=== PATIENT | male | born 1970 | race Caucasian/White ===

== ENCOUNTER 2020-05-11 20:20 | Emergency (ER) | payer OTHER, SELFPAY ==
[2020-05-11 20:30] VITALS: BMI 28.7
--- NOTE | 2020-05-11 20:33 | ECG_ITS ---
Test Reason : COCAINE USE Blood Pressure : / mmHG Vent. Rate : 088 BPM Atrial Rate : 088 BPM P-R Int : 180 ms QRS Dur : 114 ms QT Int : 374 ms P-R-T Axes : 061 038 045 degrees QTc Int : 452 ms Normal sinus rhythm Nonspecific ST and T wave abnormality Borderline ECG When compared with ECG of 17-JAN-2020 23:03, No significant change was found Referred By: Jackie Barcenas Electronically Signed By:NADIYA VICTOR
[2020-05-11 20:41] VITALS: BP 169/100; PULSE 90; RESP 16; TEMP 36.6; O2SAT 100
--- NOTE | 2020-05-11 20:54 | ED.GENADULT ---
HPI - General Adult General Chief complaint: ETOH/Substance Use Stated complaint: FEELS LIKE HEART RACING S/P COCAINE USE Time Seen by Provider: 05/11/20 20:34 Source: patient and EMS Mode of arrival: EMS Limitations: no limitations History of Present Illness HPI narrative: Patient comes to the emergency room, concerned that he used cocaine today. Patient states he used a very small amount. Patient states that he has not used in a long time, declined to state how long. 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 Patient walked into a police station after using a small amount of cocaine, he was brought in by police department. Patient is calm, cooperative, has no chest pain or shortness of breath, no complaints, MD complaint: Substance abuse Related Data Allergies Allergy/AdvReac Type Severity Reaction Status Date / Time No Known Allergies Allergy Unverified 01/10/20 19:19 [No Known Allergies*] Review of Systems Review of Systems: Constitutional : No Weight loss, No Fever, No Chills, No Night Sweats, No Fatigue, No Malaise ENT/Mouth : No Hearing loss, No Ear Pain, No Nasal Congestion, No Sinus Pain, No Hoarseness, No sore throat, No Rhinorrhea, No Swallowing Difficulty Eyes: No Eye Pain, No Swelling, No Redness, No Foreign Body, No Discharge, No Vision Changes Cardiovascular : No Chest Pain, No SOB, No Dyspnea on Exertion, No Orthopnea, No Edema, No Palpitations Respiratory : No Cough, No Sputum, No Wheezing, No Smoke Exposure, No Dyspnea Gastrointestinal : No Nausea, No Vomiting, No Diarrhea, No Constipation, No abdominal Pain, No Hematochezia, No Melena Genitourinary : no irregular bleeding, No Dysuria, No Urinary Frequency, No Hematuria, No Urinary Incontinence, No Urgency, No Flank Pain, No Urinary Flow Changes, No Hesitancy Musculoskeletal : No joint pain, No Myalgias, No Joint Swelling Skin : No Skin Lesions, No rash Neuro : No Weakness, No Numbness, No Paresthesias, No Loss of Consciousness, No Dizziness, No Headache Psych : No Anxiety/Panic, No Depression, No SI/HI/AH/VH, No Social Issues, Heme/Lymph: No Bruising, No Bleeding,No Lymphadenopathy Endocrine : No Polyuria, No Polydipsia, No Temperature Intolerance PMFSH Past Medical History Medical History (Updated 05/11/20 @ 20:57 by Jackie Barcenas MD) Hypochondriasis Substance abuse Social History Social History Advance Directives: No Advance Directives Information Provided: Yes Physical Exam Vital Signs: Vital Signs: Last Vital Signs Temp 97.9 F 05/11/20 20:41 Pulse 90 05/11/20 20:41 Resp 16 05/11/20 20:41 BP 169/100 H 05/11/20 20:41 Pulse Ox 100 05/11/20 20:41 Body Mass Index 28.7 Appearance: Alert. Oriented X3. No acute distress. Eyes: Pupils equal, round and reactive to light. ENT: Pharynx normal. Neck: Normal inspection. Neck supple. No lymph nodes noted. No crepitus CVS: Normal heart rate and rhythm. Pulses normal. Normal S1 and S2 Respiratory: No respiratory distress. Breath sounds normal. No Wheezing. No rales Abdomen: Soft and nontender. No rigidity. No distention. good BS x4 Skin: Skin warm and dry. Normal skin color. Normal skin turgor. Extremities: No lower extremity edema. No lower extremity edema. No Lacerations. No Rash Neuro: Oriented X 3. No motor deficit. No sensory deficit. Moving all extermities. No slurred speech. Course Course Course Narrative: Patient's physical exam is normal, patient has no symptoms. Medical Decision Making ECG Data Attestation: I personally reviewed and interpreted this ECG as follows: (Heart rate 88, QTC 452, nonspecific ST and T-wave abnormalities in eats V4 V5 V6, no ST segment depressions or elevations.) Discharge Plan Discharge Clinical Impression: Substance abuse Patient Disposition: Home, Self-Care Instructions: Polysubstance Abuse (ED) Additional Instructions: Please follow-up with your primary care physician tomorrow. If you have any worsening or new symptoms, please return to the emergency room or call 911
== END 2020-05-11 21:03 | disposition home or self-care (01) ==
PROVIDERS: Emergency Provider Emergency Medicine
DX: F14.19 Cocaine abuse with unspecified cocaine-induced disorder (principal); Z71.51 Drug abuse counseling and surveillance of drug abuser
CPT/HCPCS: 93005; 99283

== ENCOUNTER 2020-05-22 19:58 | Emergency (ER) | payer OTHER, SELFPAY ==
[2020-05-22 20:11] VITALS: BP 183/97; PULSE 85; RESP 18; TEMP 37.3; O2SAT 98
[2020-05-22 20:38] LABS: COVID-19 Test Positive (Negative); IDNOW Serial# 9DD0AD1C
[2020-05-22 20:40] VITALS: BP 167/98; PULSE 80; RESP 18
[2020-05-22 21:22] VITALS: BP 172/99; PULSE 76; RESP 18
[2020-05-22 21:31] VITALS: BP 162/93; PULSE 80; RESP 14; TEMP 36.8; O2SAT 97; BMI 31.9
[2020-05-22 21:50] VITALS: BP 103/58; PULSE 75; RESP 16; TEMP 36.8; O2SAT 99
--- NOTE | 2020-05-22 22:18 | ECG_ITS ---
Test Reason : HIGH BP Blood Pressure : / mmHG Vent. Rate : 071 BPM Atrial Rate : 071 BPM P-R Int : 148 ms QRS Dur : 098 ms QT Int : 396 ms P-R-T Axes : 051 028 037 degrees QTc Int : 430 ms Normal sinus rhythm Normal ECG When compared with ECG of 11-MAY-2020 20:34, No significant change was found Referred By: Luciana Aragon Electronically Signed By:Andrew Morton
--- NOTE | 2020-05-22 22:18 | ED.ANXIETY ---
HPI - Anxiety General Chief Complaint: Anxiety Stated Complaint: High blood pressure/+Covid Time Seen by Provider: 05/22/20 21:51 Source: patient Mode of arrival: ambulatory History of Present Illness HPI narrative: This is a 49-year-old male with history of alcohol dependence (drinks 8-10 beers every other day) that he stopped on 05/11. He was then diagnosed with COVID-19 on 05/14, he now presents with complaints of intermittent elevated blood pressure but does endorse that he did not take his entire prescribed medication this morning and denies any associated headache/dizziness/chest pain/shortness of breath/palpitations. Otherwise, he denies any fevers or chills. Related Data Allergies Allergy/AdvReac Type Severity Reaction Status Date / Time No Known Allergies Allergy Unverified 01/10/20 19:19 [No Known Allergies*] Review of Systems Review of Systems: Pertinent positives and negatives as stated in HPI and 10 point review of systems is otherwise negative. [facility] Past Medical History Source: nursing notes reviewed Medical History (Updated 05/22/20 @ 23:53 by Luciana Aragon MD) Alcohol dependence Hypochondriasis Substance abuse Social History Social History Advance Directives: No Advance Directives Information Provided: No Physical Exam Vital Signs: Vital Signs: Last Vital Signs Temp 98.3 F 05/22/20 21:50 Pulse 79 05/22/20 22:41 Resp 15 05/22/20 22:41 BP 166/92 H 05/22/20 22:41 Pulse Ox 96 05/22/20 22:41 Body Mass Index 31.9 VITAL SIGNS: Reviewed. GENERAL: Well developed, well nourished, anxious demeanor. HEAD: Normocephalic/atraumatic, EYES: PERRLA, EOMI EARS: Ext canals without abnormality, TMs non-bulging and non-erythematous NOSE: Nares patent bilateral OROPHARYNX: no oral lesions noted, posterior pharynx clear NECK: Supple, no adenopathy LUNGS: Normal breath sounds. No adventitious sounds or accessory muscle use. SpO2<98> CARDIOVASCULAR: Regular rate and rhythm without noted murmurs, no JVD or lower extremity edema. ABDOMEN: Soft, non-tender, non-distended with bowel sounds. SKIN: Inspection of the skin reveals no rashes NEUROLOGIC: Alert and oriented x 4. Course Course Course Narrative: This is a 49-year-old male with history and clinical presentation consistent with anxiety and increased salt intake. Otherwise, there are no concerning signs of end-organ damage secondary to patient's elevated blood pressure however will proceed with basic labs and EKG. This plan was discussed with the patient at bedside. Review of all investigations is negative for any acute findings to better explain patient's elevated blood pressure other than those outlined in the obtained history. Patient is noted to be COVID-19 positive and was informed of this. Is discharged in stable condition with no evidence of hypoxia or tachypnea. MDM - Anxiety Lab Data Result diagrams: 05/22/20 22:41 05/22/20 22:41 Labs: Lab Results 05/22/20 05/22/20 05/22/20 Range/Units 20:14 22:41 22:41 WBC 5.2 (4.8-10.8) X10*3/uL RBC 4.70 (4.60-5.80) X10*6/uL Hgb 14.0 (14.0-18.0) g/dl Hct 39.2 L (42-52) % MCV 83.4 (80-98) fL MCH 29.8 (27.0-33.0) pg MCHC 35.7 (31.0-36.0) g/dl RDW 11.8 (11.0-16.0) % Plt Count 162 (160-400) X10*3/uL MPV 10.1 (9.4-12.4) fL Immature Gran % (Auto) 0.2 (0.0-0.4) % Neut % (Auto) 68.6 (45-73) % Lymph % (Auto) 25.4 (20-40) % [place] % (Auto) 5.4 (2-11) % Eos % (Auto) 0.4 (0-4) % Baso % (Auto) 0.0 (0-2) % Lymph # (Auto) 1.3 (1.2-4.9) X10*3/uL [place] # (Auto) 0.3 (0.1-1.2) X10*3/uL Eos # (Auto) 0.0 (0.0-0.4) X10*3/uL Baso # (Auto) 0.0 (0.0-0.2) X10*3/uL Abs Immat Gran (auto) 0.01 (0.00-0.03) X10*3/uL Absolute Neuts (auto) 3.6 (2.0-8.3) X10*3/uL Absolute Nucleated RBC 0.000 (0.0-0.012) X10*3/uL Nucleated RBC % (auto) 0.0 (0.0-0.2) /100WBC Sodium 139 (135-145) mmol/L Potassium 4.3 (3.3-5.1) mmol/l Chloride 107 (96-108) mmol/L Carbon Dioxide 22 (22-29) mmol/L Anion Gap 14 (12-20) BUN 10 (9-16) mg/dL Creatinine 0.76 (0.5-1.4) mg/dL Estim Creat Clear Calc 126.1 Estimated GFR > 60 Random Glucose 106 (60-115) mg/dL Calcium 8.3 L (8.4-10.2) mg/dL Total Bilirubin 0.9 (0.0-1.0) mg/dL AST 59 H (5-37) U/L ALT 104 H (0-40) U/L Alkaline Phosphatase 90 (39-117) U/L Total Protein 7.0 (6.5-8.0) g/dL Albumin 4.6 (3.5-5.0) g/dL COVID-19 ([place]) Positive A (Negative) COVID-19 Clin Com See Note ECG Data Attestation: I personally reviewed and interpreted this ECG as follows: Prior ECG tracings: not available for review Interpretation: Normal sinus rhythm, HR-71, no evidence of acute ischemia, ME/QRS/QTC are within normal limits. Discharge Plan Discharge Clinical Impression: Elevated blood pressure reading, COVID-19 Patient Disposition: Home, Self-Care Instructions: DASH Eating Plan (ED), Hypertension (ED), COVID-19 (Coronavirus Disease 2019) (ED) Additional Instructions: 1. Please take your home medications as prescribed. 2. Please follow-up with your primary care provider by calling the office tomorrow morning and discussing further blood pressure management. 3. Your COVID-19 positive and must remain self quarantined as per the [facility] guidelines. Please do not hesitate to return emergency department if you have any acute worsening of her symptoms. Referrals: Physician,Unknown [Primary Care Provider] - 2 days
[2020-05-22 22:41] VITALS: BP 166/92; PULSE 79; RESP 15; O2SAT 96
[2020-05-22 22:47] LABS: Eosinophils Percent Auto 0.4 % (0-4); Hematocrit 39.2 % (42-52); Imm Gran Abs Auto 0.01 X10*3/uL (0.00-0.03); Imm Gran Pct Auto 0.2 % (0.0-0.4); Lymphocytes Absolute Auto 1.3 X10*3/uL (1.2-4.9); Lymphocytes Percent Auto 25.4 % (20-40); Mean Corpuscular HGB Conc 35.7 g/dl (31.0-36.0); Mean Corpuscular Hemoglobin 29.8 pg (27.0-33.0); Mean Corpuscular Volume 83.4 fL (80-98); Mean Platelet Volume 10.1 fL (9.4-12.4); Monocytes Absolute Auto 0.3 X10*3/uL (0.1-1.2); Monocytes Percent Auto 5.4 % (2-11); Neutrophils Absolute Auto 3.6 X10*3/uL (2.0-8.3); Neutrophils Percent Auto 68.6 % (45-73); Platelet Count 162 X10*3/uL (160-400); Red Cell Distribution Width 11.8 % (11.0-16.0); White Blood Count 5.2 X10*3/uL (4.8-10.8)
[2020-05-22 22:48] LABS: MANUAL DIFF FLAG NO
[2020-05-22 23:22] LABS: Alanine Aminotransferase 104 U/L (0-40); Albumin Level 4.6 g/dL (3.5-5.0); Alkaline Phosphatase 90 U/L (39-117); Anion Gap 14 (12-20); Aspartate Amino Transferase 59 U/L (5-37); Bilirubin Total 0.9 mg/dL (0.0-1.0); Blood Urea Nitrogen 10 mg/dL (9-16); Calcium 8.3 mg/dL (8.4-10.2); Carbon Dioxide 22 mmol/L (22-29); Chloride 107 mmol/L (96-108); Creatinine Clr Calc Pharmacy 126.1; Estimated Glomerular Filt Rate > 60; Glucose Random 106 mg/dL (60-115); Potassium 4.3 mmol/l (3.3-5.1); Sodium 139 mmol/L (135-145)
[2020-05-23 00:12] VITALS: BP 140/81; PULSE 73; RESP 11; O2SAT 97
--- NOTE | 2020-05-23 00:15 | PC.NURSE ---
PT FEELING BETTER, RELIEVED THAT BP IS LOWER. PT ASKED IF HE HAD ANY SALTY FOOD PT REPLIES OH LEVI BURNETT AT [facility].
== END 2020-05-23 00:34 | disposition home or self-care (01) ==
PROVIDERS: Emergency Provider Student in an Organized Health Care Education/Training Program
DX: U07.1 COVID-19 (principal); R03.0 Elevated blood-pressure reading, without diagnosis of hypertension; F10.20 Alcohol dependence, uncomplicated; F19.10 Other psychoactive substance abuse, uncomplicated
CPT/HCPCS: 36415; 80053; 85025; 87635; 93005; 99283; 99284

== ENCOUNTER 2021-03-03 12:07 | Outpatient (REF) | payer OTHER, SELFPAY | END 2021-03-03 12:08 | disposition home or self-care (01) | LOC: HO.HMGCLDS 12:07 | PROVIDERS: PCP Internal Medicine; Visit Provider Internal Medicine | DX: Z20.822 Contact with and (suspected) exposure to COVID-19 (principal) | CPT/HCPCS: C9803; U0003; U0005 ==

== ENCOUNTER 2022-06-12 19:34 | Emergency (ER) | payer OTHER, SELFPAY ==
--- NOTE | ~2022-06-12 | XR_ITS ---
EXAMINATION: XR CHEST CLINICAL INFORMATION: Chest pain COMPARISON: None TECHNIQUE: 2 views of the chest were obtained. FINDINGS: No significant abnormality is noted involving the heart, lungs, mediastinum, bony thorax or soft tissues. XR/XR chest 2V IMPRESSION: Unremarkable examination.
--- NOTE | 2022-06-12 19:37 | ED.ARRPALP ---
HPI - Arrhythmia/Palpitations General Chief Complaint: Arrhythmia/Palpitations <Evi Buenrostro NP - Last Filed: 06/12/22 19:44> Stated Complaint: elevated bp..heart beat feels different <Evi Buenrostro NP - Last Filed: 06/12/22 19:44> Time Seen by Provider: 06/12/22 21:14 <Evi Buenrostro NP - Last Filed: 06/12/22 19:44> Source: patient <Mack Rushing MD - Last Filed: 06/12/22 21:38> Mode of arrival: ambulatory <Mack Rushing MD - Last Filed: 06/12/22 21:38> Limitations: no limitations <Mack Rushing MD - Last Filed: 06/12/22 21:38> History of Present Illness HPI narrative: Patient alcohol with history of anxiety and hypertension prior to arrival patient felt extra beat with a pause similar to that in the past got panicked check his blood pressure was elevated to 180/100 history of same in the past <Mack Rushing MD - Last Filed: 06/12/22 21:38> Related Data Allergies/Adverse Reactions: Allergies Allergy/AdvReac Type Severity Reaction Status Date / Time No Known Allergies Allergy Verified 06/12/22 19:43 [No Known Allergies*] <Evi Buenrostro NP - Last Filed: 06/12/22 19:44> Review of Systems Review of Systems: Yes all other systems are reviewed and are negative <Mack Rushing MD - Last Filed: 06/12/22 21:38> [facility] Past Medical History Medical History: Medical History Alcohol dependence Hypochondriasis Substance abuse <Evi Buenrostro NP - Last Filed: 06/12/22 19:44> Social History Social History: Social History Advance Directives: No Advance Directives Information Provided: No <Evi Buenrostro NP - Last Filed: 06/12/22 19:44> Physical Exam Vital Signs: Vital Signs: Last Vital Signs Temp 99.0 F 06/12/22 19:38 Pulse 99 06/12/22 19:38 Resp 20 06/12/22 19:38 BP 188/101 H 06/12/22 19:38 Pulse Ox 97 06/12/22 19:38 O2 Del Method 06/12/22 19:38 BMI result Body Mass Index 34.1 <Evi Buenrostro NP - Last Filed: 06/12/22 19:44> Vital Signs: Last Vital Signs Temp 99.0 F 06/12/22 19:38 Pulse 99 06/12/22 19:38 Resp 20 06/12/22 19:38 BP 188/101 H 06/12/22 19:38 Pulse Ox 97 06/12/22 19:38 O2 Del Method 06/12/22 19:38 BMI result Body Mass Index 34.1 <Mack Rushing MD - Last Filed: 06/12/22 21:38> Appearance: Alert. Oriented X3. No acute distress. Anxious Eyes: No pallor/ icterus ENT: Pharynx normal. Oral Mucosa moist Neck: Normal inspection. Neck supple. CVS: Normal heart rate and rhythm. Pulses normal. Respiratory: No respiratory distress. Equal air entry bilateral, no wheezing/rales/rhonchi Abdomen: Soft and nontender. Bowel sounds are present, no mass palpable, no CVA tenderness Skin: Skin warm and dry. Normal skin color. Normal skin turgor. Extremities: No lower extremity edema. No calf tenderness Neuro: Oriented X 3. No motor deficit. <Mack Rushing MD - Last Filed: 06/12/22 21:38> Course Course Course Narrative: This is a rapid medical exam. Deferred additional HPI, ROS, PE to primary provider. 51 yo male with past medical history of HTN on lisinopril, insomnia, alcohol use disorder (drinks every other day 8-10beers at a sitting-last drink yesterday) here with complaints of palpitations states I feel like its irregular and pausing /high blood pressure felt today. Took xanax 0.25 mg to see if this would help [employer]. No chest pain, shortness of breath, dizziness, headache. Patient has felt like he has alcohol withdrawals before and unsure if this feels similar. Will obtain labs, EKG, CXR, viral testing. VSS <Evi Buenrostro NP - Last Filed: 06/12/22 19:44> Medical Decision Making Lab Data MDM Lab Attestation statement: I reviewed the patient's lab results. <Mack Rushing MD - Last Filed: 06/12/22 21:38> Result Diagrams: 06/12/22 20:06 06/12/22 20:06 <Evi Buenrostro NP - Last Filed: 06/12/22 19:44> Labs: Lab Results 06/12/22 06/12/22 06/12/22 Range/Units 20:06 20:06 20:06 WBC 5.0 (4.8-10.8) X10*3/uL RBC 4.22 L (4.60-5.80) X10*6/uL Hgb 12.7 L (14.0-18.0) g/dl Hct 35.4 L (42.0-52.0) % MCV 83.9 (80.0-98.0) fL MCH 30.1 (27.0-33.0) pg MCHC 35.9 (31.0-36.0) g/dl RDW 12.0 (11.0-16.0) % Plt Count 181 (160-400) X10*3/uL MPV 9.7 (9.4-12.4) fL Immature Gran % (Auto) 0.2 (0.0-0.4) % Neut % (Auto) 53.7 (45-73) % Lymph % (Auto) 36.3 (20-40) % [place] % (Auto) 9.0 (2-11) % Eos % (Auto) 0.6 (0-4) % Baso % (Auto) 0.2 (0-2) % Lymph # (Auto) 1.8 (1.2-4.9) X10*3/uL [place] # (Auto) 0.5 (0.1-1.2) X10*3/uL Eos # (Auto) 0.0 (0.0-0.4) X10*3/uL Baso # (Auto) 0.0 (0.0-0.2) X10*3/uL Abs Immat Gran (auto) 0.01 (0.00-0.03) X10*3/uL Absolute Neuts (auto) 2.7 (2.0-8.3) x10*3/uL Absolute Nucleated RBC 0.000 (0.0-0.012) X10*3/uL Nucleated RBC % (auto) 0.0 (0.0-0.2) /100WBC PT 11.7 (10.0-13.1) SEC INR 1.0 (0.9-1.1) Sodium 140 (135-145) mmol/L Potassium 3.9 (3.3-5.1) mmol/L Chloride 108 (96-108) mmol/L Carbon Dioxide 22 (22-29) mmol/L Anion Gap 14 (12-20) BUN 18 H (9-16) mg/dL Creatinine 0.98 (0.5-1.4) mg/dL Estim Creat Clear Calc 98.7 Estimated GFR > 60 Random Glucose 143 H (60-115) mg/dL Calcium 8.8 D (8.4-10.2) mg/dL Magnesium 1.8 (1.6-2.6) mg/dL Total Bilirubin 0.7 (0.0-1.0) mg/dL Direct Bilirubin 0.2 (0.0-0.5) mg/dL AST 32 (5-37) U/L ALT 45 H (0-40) U/L Alkaline Phosphatase 70 (39-117) U/L Troponin I High Sens (<3.5-35.0) ng/L Total Protein 6.6 (6.5-8.0) g/dL Albumin 4.3 (3.5-5.0) g/dL COVID-19 ([place]) (Negative) COVID-19 Clin Com 06/12/22 06/12/22 Range/Units 20:06 20:06 WBC (4.8-10.8) X10*3/uL RBC (4.60-5.80) X10*6/uL Hgb (14.0-18.0) g/dl Hct (42.0-52.0) % MCV (80.0-98.0) fL MCH (27.0-33.0) pg MCHC (31.0-36.0) g/dl RDW (11.0-16.0) % Plt Count (160-400) X10*3/uL MPV (9.4-12.4) fL Immature Gran % (Auto) (0.0-0.4) % Neut % (Auto) (45-73) % Lymph % (Auto) (20-40) % [place] % (Auto) (2-11) % Eos % (Auto) (0-4) % Baso % (Auto) (0-2) % Lymph # (Auto) (1.2-4.9) X10*3/uL [place] # (Auto) (0.1-1.2) X10*3/uL Eos # (Auto) (0.0-0.4) X10*3/uL Baso # (Auto) (0.0-0.2) X10*3/uL Abs Immat Gran (auto) (0.00-0.03) X10*3/uL Absolute Neuts (auto) (2.0-8.3) x10*3/uL Absolute Nucleated RBC (0.0-0.012) X10*3/uL Nucleated RBC % (auto) (0.0-0.2) /100WBC PT (10.0-13.1) SEC INR (0.9-1.1) Sodium (135-145) mmol/L Potassium (3.3-5.1) mmol/L Chloride (96-108) mmol/L Carbon Dioxide (22-29) mmol/L Anion Gap (12-20) BUN (9-16) mg/dL Creatinine (0.5-1.4) mg/dL Estim Creat Clear Calc Estimated GFR Random Glucose (60-115) mg/dL Calcium (8.4-10.2) mg/dL Magnesium (1.6-2.6) mg/dL Total Bilirubin (0.0-1.0) mg/dL Direct Bilirubin (0.0-0.5) mg/dL AST (5-37) U/L ALT (0-40) U/L Alkaline Phosphatase (39-117) U/L Troponin I High Sens 6.3 (<3.5-35.0) ng/L Total Protein (6.5-8.0) g/dL Albumin (3.5-5.0) g/dL COVID-19 ([place]) Negative (Negative) COVID-19 Clin Com See Note <Evi Chitra, [employer] OPERATOR - Last Filed: 06/12/22 19:44> Lab Results 06/12/22 06/12/22 06/12/22 Range/Units 20:06 20:06 20:06 WBC 5.0 (4.8-10.8) X10*3/uL RBC 4.22 L (4.60-5.80) X10*6/uL Hgb 12.7 L (14.0-18.0) g/dl Hct 35.4 L (42.0-52.0) % MCV 83.9 (80.0-98.0) fL MCH 30.1 (27.0-33.0) pg MCHC 35.9 (31.0-36.0) g/dl RDW 12.0 (11.0-16.0) % Plt Count 181 (160-400) X10*3/uL MPV 9.7 (9.4-12.4) fL Immature Gran % (Auto) 0.2 (0.0-0.4) % Neut % (Auto) 53.7 (45-73) % Lymph % (Auto) 36.3 (20-40) % [place] % (Auto) 9.0 (2-11) % Eos % (Auto) 0.6 (0-4) % Baso % (Auto) 0.2 (0-2) % Lymph # (Auto) 1.8 (1.2-4.9) X10*3/uL [place] # (Auto) 0.5 (0.1-1.2) X10*3/uL Eos # (Auto) 0.0 (0.0-0.4) X10*3/uL Baso # (Auto) 0.0 (0.0-0.2) X10*3/uL Abs Immat Gran (auto) 0.01 (0.00-0.03) X10*3/uL Absolute Neuts (auto) 2.7 (2.0-8.3) x10*3/uL Absolute Nucleated RBC 0.000 (0.0-0.012) X10*3/uL Nucleated RBC % (auto) 0.0 (0.0-0.2) /100WBC PT 11.7 (10.0-13.1) SEC INR 1.0 (0.9-1.1) Sodium 140 (135-145) mmol/L Potassium 3.9 (3.3-5.1) mmol/L Chloride 108 (96-108) mmol/L Carbon Dioxide 22 (22-29) mmol/L Anion Gap 14 (12-20) BUN 18 H (9-16) mg/dL Creatinine 0.98 (0.5-1.4) mg/dL Estim Creat Clear Calc 98.7 Estimated GFR > 60 Random Glucose 143 H (60-115) mg/dL Calcium 8.8 D (8.4-10.2) mg/dL Magnesium 1.8 (1.6-2.6) mg/dL Total Bilirubin 0.7 (0.0-1.0) mg/dL Direct Bilirubin 0.2 (0.0-0.5) mg/dL AST 32 (5-37) U/L ALT 45 H (0-40) U/L Alkaline Phosphatase 70 (39-117) U/L Troponin I High Sens (<3.5-35.0) ng/L Total Protein 6.6 (6.5-8.0) g/dL Albumin 4.3 (3.5-5.0) g/dL COVID-19 ([place]) (Negative) COVID-19 Clin Com 06/12/22 06/12/22 Range/Units 20:06 20:06 WBC (4.8-10.8) X10*3/uL RBC (4.60-5.80) X10*6/uL Hgb (14.0-18.0) g/dl Hct (42.0-52.0) % MCV (80.0-98.0) fL MCH (27.0-33.0) pg MCHC (31.0-36.0) g/dl RDW (11.0-16.0) % Plt Count (160-400) X10*3/uL MPV (9.4-12.4) fL Immature Gran % (Auto) (0.0-0.4) % Neut % (Auto) (45-73) % Lymph % (Auto) (20-40) % [place] % (Auto) (2-11) % Eos % (Auto) (0-4) % Baso % (Auto) (0-2) % Lymph # (Auto) (1.2-4.9) X10*3/uL [place] # (Auto) (0.1-1.2) X10*3/uL Eos # (Auto) (0.0-0.4) X10*3/uL Baso # (Auto) (0.0-0.2) X10*3/uL Abs Immat Gran (auto) (0.00-0.03) X10*3/uL Absolute Neuts (auto) (2.0-8.3) x10*3/uL Absolute Nucleated RBC (0.0-0.012) X10*3/uL Nucleated RBC % (auto) (0.0-0.2) /100WBC PT (10.0-13.1) SEC INR (0.9-1.1) Sodium (135-145) mmol/L Potassium (3.3-5.1) mmol/L Chloride (96-108) mmol/L Carbon Dioxide (22-29) mmol/L Anion Gap (12-20) BUN (9-16) mg/dL Creatinine (0.5-1.4) mg/dL Estim Creat Clear Calc Estimated GFR Random Glucose (60-115) mg/dL Calcium (8.4-10.2) mg/dL Magnesium (1.6-2.6) mg/dL Total Bilirubin (0.0-1.0) mg/dL Direct Bilirubin (0.0-0.5) mg/dL AST (5-37) U/L ALT (0-40) U/L Alkaline Phosphatase (39-117) U/L Troponin I High Sens 6.3 (<3.5-35.0) ng/L Total Protein (6.5-8.0) g/dL Albumin (3.5-5.0) g/dL COVID-19 ([place]) Negative (Negative) COVID-19 Clin Com See Note <Mack Rushing MD - Last Filed: 06/12/22 21:38> Independent Interpretation I performed an independent interpretation of an: EKG <Mack Rushing MD - Last Filed: 06/12/22 21:38> Interpretation: Normal sinus rhythm with heart rate 91 beats with PACs nonspecific ST T wave changes no acute ischemic <Mack Rushing MD - Last Filed: 06/12/22 21:38> Discharge Plan Discharge Clinical Impression: Anxiety, Ventricular premature beats <Evi Buenrostro NP - Last Filed: 06/12/22 19:44> Patient Disposition: Home, Self-Care <Evi Buenrostro NP - Last Filed: 06/12/22 19:44> Instructions: Panic Disorder (ED), Premature Ventricular Contractions (ED) <Evi Buenrostro NP - Last Filed: 06/12/22 19:44> Additional Instructions: Stop drinking alcohol Relaxed and taking medications Follow with PCP if you have recurrence of palpitation with passing out episode <Evi Buenrostro NP - Last Filed: 06/12/22 19:44>
[2022-06-12 19:38] VITALS: BP 188/101; PULSE 99; RESP 20; TEMP 37.2; O2SAT 97; BMI 34.1
--- NOTE | 2022-06-12 19:42 | ECG_ITS ---
Test Reason : tacardya Blood Pressure : / mmHG Vent. Rate : 091 BPM Atrial Rate : 091 BPM P-R Int : 140 ms QRS Dur : 102 ms QT Int : 356 ms P-R-T Axes : 056 037 061 degrees QTc Int : 437 ms Sinus rhythm with Premature atrial complexes Nonspecific ST abnormality Abnormal ECG When compared with ECG of 22-MAY-2020 23:05, Premature atrial complexes are now Present Referred By: Evi Buenrostro Electronically Signed By:Andrew Morton
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
--- OUTSIDE RECORDS SUMMARY | 2022-06-12 20:02 | XMS_ITS | Continuity of Care Document ---
:1970 Author Organization [facility] Care Team Providers Name Role Phone [facility] Unavailable Unavailable Problems Combined list of problems from Department of Defense and Veterans Affairs facilities. It does not include entries that were removed or entered in error. Problem Status Onset Problem Date of Comments Source Date Type Resolution Acute low back pain Active Condition [facility] [place] [facility] Alcohol dependence Active Condition [facility] C Alcohol dependence Active Condition Jul 252018 Entered By: BRADEN CLARK Comment: reports decreased use September 07, 2018 Entered By: BRADEN CLARK Comment: reviewewd Jun 25, 2019 Entered By: BRADEN CLARK Comment: reviewed Jun 02, 2020 Entered By: BRADEN CLARK Comment: reviewed Jul 21, 2021 Entered By: BRADEN CLARK Comment: Reviewed Alcoholic hepatitis Active Condition Aug 22, [place] [facility] (SNOMED CT 2012 Entered WSTRN [id number]) By: BRADEN STEWART Comment: reports decreased alcohol Dec 08, 2017 Entered By: BRADEN CLARK Comment: reviewed Alcoholic liver Active Condition [facility] disease [facility] Benign essential Active Condition [facility] hypertension (SNOMED CT 2836423) Benzodiazepine Active Condition [facility] [facility] dependence [facility] Bipolar affective Active Condition Dec 08 [place] disorder, current 2018 Entered episode depression By: (SNOMED CT BRADEN CLARK [id number]) BERNICE Campo Comment: reviewed September 07, 2018 Entered By: BRADEN CLARK Comment: reviewed Jun 25, 2019 Entered By: BRADEN CLARK Comment: reviewed Jun 02, 2020 Entered By: BRADEN CLARK Comment: reviewed Jul 21, 2021 Entered By: BRADEN CLARK Comment: Reviewed Bipolar II disorder Active Condition [facility] C Bursitis Active Condition [facility] [place] [facility] Chronic Active Condition [facility] post-traumatic NAINA S [facility] stress disorder Chronic Active Condition Aug 13, [place] [facility] post-traumatic 2010 Entered WS TRN stress disorder By: MARKIE PUGA (SNOMED CT BRADEN CLARK [facility] [id number]) BERNICE Campo Comment: reviewed Dec 08, 2017 Entered By: BRADEN CLARK Comment: reviewed September 07, 2018 Entered By: BRADEN CLARK Comment: reviewed Jun 25, 2019 Entered By: BRADEN CLARK Comment: reviewed Jun 02, 2020 Entered By: BRADEN CLARK Comment: reviewed Jul 21, 2021 Entered By: BRADEN CLARK Comment: reviewed Cocaine abuse Active Condition [facility] C Cocaine user Active Condition Jul 21, [facility] 2021 Entered By: BRADEN CLARK Comment: Reports abstinence diphenhydramine Active Condition [facility] abuse [facility] C Hepatitis C antibody Active Condition Nov 01 , [place] test positive 2013 Entered By: MILO NATH Comment: viral RNA not detected 10/2013 HTN - Hypertension Active Condition E D[facility] N[facility] (SCT 94471780) NAINA S [facility] Hyperlipidemia Active Condition [facility] 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 BERNICE Campo Comment: reviewed Jul 21, 2021 Entered By: BRADEN CLARK Comment: Reports abstinence Liver function tests Active Condition [facility] Mixed Hyperlipidemia Active Condition [facility] (SCT 632133742) LEONA RS [facility] Nevus, Active Condition [facility] non-neoplastic [facility] (ICD-9-CM 448.1) [facility] Obesity (SCT Active Condition [facility] IELD 112554273) Pain in joint Active Condition [facility] involving shoulder W STRN region (ICD-9-CM [place] 719.41) HCS Depressive Disorder Inactive Condition 08/09/2013 Aug 13 , [place] [facility] NOS * (ICD-9-CM 2010 Entered W STRN 311./300.4) By: BRADEN ANDERSON [facility] BERNICE Campo Comment: reviewed Diagnosis: ICD-10-CM Active Diagnosis [place] F31.32 Bipolar disorder, current episode depressed, moderatewith Provider Comments: Bipolar affective disorder, current episode depression (SCT 997081322) Diagnosis: ICD-10-CM Active Diagnosis [place] F10.20 Alcohol dependence, uncomplicatedwith Provider Comments: Alcohol dependence ([facility] 54907475) Diagnosis: ICD-10-CM Active Diagnosis [place] F43.12 Post-traumatic stress disorder, chronicwith Provider Comments: Chronic post-traumatic stress disorder ([facility] 847781066) Diagnosis: ICD-10-CM Active Diagnosis [place] M72.2 Plantar fascial fibromatosiswith Provider Comments: Plantar fascial fibromatosis Diagnosis: ICD-10-CM Active Diagnosis [place] I10 Essential (primary) hypertensionwith Provider Comments: Essential (Primary) Hypertension Diagnosis: ICD-10-CM Active Diagnosis [facility] Z04.89 Encounter for WSTRN examination and [place] observation for oth HCS reasonswith Provider Comments: Encounter & Observation for Oth Spec Reason Medications Combined list of outpatient medications from Department of Defense and Veterans Affairs facilities. Medications provided include 1) outpatient medications from the last 15 months, and 2) patient-reported medications. Medication Details Route Status Patient Prescription Prescription Last Ordering Order Source Instructions Expires Number Dispense Provider Date Date ASCORBIC TAKE ONE ORAL ACTIVE NADAZDIN- 06/19/ SP RINGF ACID 500MG TABLET 2020 IELD TAB BY MOUTH OGNJENKA ONCE M DAILY BISACODYL TAKE TWO ORAL 10/01/2021 [id number] [place] 5MG TAB,EC TABLETS 2 BEL 2021 CNTRL BY MOUTH W[place]N [place] DIRECTED SETS BY [facility] PROVIDER TAKE ALL TABLETS RIGHT BEFORE STARTING BOWEL PREP. FOLLOW INSTRUCT IONS GIVEN BY OFFICE FOR TIMING. busPIRone TAKE ONE Active 09/30/2022 [id number] AMBER 11/01/ Diana (U/D) 5 MG TABLET 2 THEA G 2021 pton ORAL TAB BY MOUTH [facility] TWICE DAILY FOR ANXIETY BUSPIRONE TAKE ONE ORAL DISCONT 09/30/2022 [id number] Germain EATON springF HCL 5MG TAB TABLET INUED 2 TEPHEN G 2021 IELD BY MOUTH TWICE DAILY FOR ANXIETY cholecalcif TAKE ONE 04/11/2022 [id number] NADA ZDIN- 04/19/ Diana (VIT D3) TABLET 1 BOS2020 pton 4,000 UNIT BY MOUTH OGNJENKA VAM C PO TAB ONCE M DAILY FOR VITAMIN SUPPLEME NTATION CHOLECALCIF TAKE ONE ORAL 04/11/2022 [id number] N ADAZDIN- springF ANNI 10MCG TABLET 2 2020 IELD (400UNIT) BY MOUTH OGNJENKA TAB ONCE M DAILY FOR VITAMIN SUPPLEME NTATION COENZYME TAKE BY ORAL ACTIVE NADAZDIN- INGF Q10 CAP/TAB MOUTH 2020 IELD ONCE OGNJENKA DAILY M DOCUSATE TAKE ONE 04/11/2022 [id number] NADAZDI N- 04/19/ Northam (U/D) 100 CAPSULE 1 2020 pton MG ORAL CAP BY MOUTH OGNJENKA [facility] TWICE M DAILY NEEDED TO SOFTEN STOOL DOCUSATE NA TAKE ONE ORAL ACTIVE 11/03/2022 [id number] L SOPHIE WEISS 100MG CAP CAPSULE 2 EL J 2021 IELD BY MOUTH TWICE DAILY NEEDED TO SOFTEN STOOL DOCUSATE NA TAKE ONE ORAL DISCONT 04/11/2022 [id number] N ADAZDIN- springF 100MG CAP CAPSULE INUED 1 2020 IELD BY MOUTH OGNJENKA TWICE M DAILY NEEDED TO SOFTEN STOOL GABAPENTIN TAKE ONE Active 01/20/2023 [id number] MUELLE R, Northam (U/D) 300 CAPSULE 2 THEA 2021 pton MG ORAL CAP BY MOUTH [facility] TWICE DAILY NEEDED FOR ANXIETY GABAPENTIN TAKE ONE Discont 09/30/2022 [id number] MUELL ER, Northam (U/D) 300 CAPSULE inued 2 THEA G 2021 pton MG ORAL CAP BY MOUTH [facility] THREE TIMES DAILY NEEDED FOR ANXIETY GABAPENTIN TAKE ONE Discont 02/26/2022 [id number] MUELL ER, Northam (U/D) 300 CAPSULE inued 2 THEA G 2021 pton MG ORAL CAP BY MOUTH [facility] THREE TIMES DAILY NEEDED FOR ANXIETY GABAPENTIN TAKE ONE ORAL ACTIVE 01/20/2023 [id number] MUELLE R,S springF 300MG CAP CAPSULE 3 TEPHEN G 2021 IELD BY MOUTH TWICE DAILY NEEDED FOR ANXIETY GABAPENTIN TAKE ONE ORAL DISCONT 09/30/2022 [id number] M UELLER,S 300MG CAP CAPSULE INUED 2 TEPHEN G 2021 IELD BY MOUTH (EDIT) THREE TIMES DAILY NEEDED FOR ANXIETY GABAPENTIN TAKE ONE ORAL DISCONT 02/26/2022 [id number] MUELL ER,S 300MG CAP CAPSULE INUED 2 TEPHEN G 2020 IELD BY MOUTH THREE TIMES DAILY NEEDED FOR ANXIETY LISINOPRIL TAKE ONE Active 11/03/2022 [id number] BRUCE, Northam 30 MG ORAL TABLET 2 ORVILLE J 2021 pton TAB BY MOUTH [facility] ONCE DAILY TO CONTROL BLOOD PRESSURE LISINOPRIL TAKE ONE Active 08/22/2022 [id number] NADAZD IN- am 30 MG ORAL TABLET 2 2021 pton TAB BY MOUTH OGNJENKA [facility] ONCE M DAILY TO CONTROL BLOOD PRESSURE LISINOPRIL TAKE ONE Discont 02/08/2022 [id number] NADAZ DIN- am 30 MG ORAL TABLET inued 2 2021 pton TAB BY MOUTH OGNJENKA [facility] ONCE M DAILY TO CONTROL BLOOD PRESSURE LISINOPRIL TAKE ONE ORAL ACTIVE 11/03/2022 [id number] SOPHIE BRUCE 30MG TAB TABLET 3 SUZETTE J 2021 IELD BY MOUTH ONCE DAILY TO CONTROL BLOOD PRESSURE LISINOPRIL TAKE ONE ORAL DISCONT 08/22/2022 [id number] N ADAZDIN- 30MG TAB TABLET INUED 2 2021 IELD BY MOUTH OGNJENKA ONCE M DAILY TO CONTROL BLOOD PRESSURE LISINOPRIL TAKE ONE ORAL DISCONT 02/08/2022 [id number] NADAZ DIN- 30MG TAB TABLET INUED 2 2020 IELD BY MOUTH OGNJENKA ONCE M DAILY TO CONTROL BLOOD PRESSURE NALTREXONE TAKE ONE ORAL ACTIVE 06/27/2022 [id number] MUELLE R,S (EQV-REVIA) TABLET 3 TEPHEN G 2022 IELD 50MG TAB BY MOUTH ONCE DAILY ALCOHOL USE DISORDER NITROGLYCER APPLY 07/10/2021 [id number] [place] am IN 0.4 % SMALL 2 NE, CAM 2021 pton RECT OINT AMOUNT [facility] [30 GM] TO RECTALLY TWICE DAILY NEEDED DIRECTED BY PROVIDER FOR ANAL FISSURE (FOR RECTAL USE ONLY) NITROGLYCER APPLY RECTAL 07/10/2021 [id number] TAJ SCO IN 0.4% SMALL LY 2 NE,CAM 2021 IELD OINT,RTL AMOUNT TO RECTALLY TWICE DAILY NEEDED DIRECTED BY PROVIDER FOR ANAL FISSURE (FOR RECTAL USE ONLY) PEG-3350/EL TAKE ORAL 10/01/2021 [id number] Sammie COBOS AG ECTROLYTES CONTENTS 2 BEL 2021 CNTRL PWDR OF WSTRN BOTTLE [place] BY MOUTH SETS HCS DIRECTED BY PROVIDER STARTING AT 6PM THE NIGHT BEFORE YOUR PROCEDUR E, DRINK 8 O[address]ES [address] YOUR OWN PACE UNTIL RECTALS RUN CLEAR. DISSOLVE CONTENTS BEFORE DRINKING . PRAVASTATIN TAKE ONE 04/13/2022 [id number] NADA ZDIN- am 40 MG ORAL TABLET 1 2020 pton TAB BY MOUTH OGNJENKA [facility] ONCE M DAILY FOR CHOLESTE ROL PRAVASTATIN TAKE ONE ORAL 04/13/2022 [id number] N ADAZDIN- NA 40MG TAB TABLET 2 2020 IEL D BY MOUTH OGNJENKA ONCE M DAILY FOR CHOLESTE ROL PSYLLIUM TAKE 1 ORAL 04/11/2022 [id number] NADAZDIN- PWDR,ORAL TEASPOON 1 2020 IEL D FUL BY OGNJENKA MOUTH M TWICE DAILY (MIX WITH AT LEAST 8OZ. OF WATER OR OTHER FLUID) Quetiapine TAKE Active 01/20/2023 [id number] CLARK, (Seroquel THREE 2 THEA G 2021 pton Starter TABLETS [facility] Pack) BY MOUTH Tablet 25mg AT Oral BEDTIME -FOR MOOD Quetiapine TAKE Active 07/22/2022 [id number] CLARK, (Seroquel THREE 2 THEA G 2021 pton Starter TABLETS [facility] Pack) BY MOUTH Tablet 25mg AT Oral BEDTIME -FOR MOOD Quetiapine TAKE Active 07/22/2022 [id number] CLARK, (Seroquel THREE 2 THEA G 2021 pton Starter TABLETS [facility] Pack) BY MOUTH Tablet 25mg AT Oral BEDTIME -FOR MOOD Quetiapine TAKE Discont 12/25/2021 [id number] AMBER, (Seroquel THREE inued 2 THEA G 2021 pton Starter TABLETS [facility] Pack) BY MOUTH Tablet 25mg AT Oral BEDTIME -FOR MOOD QUETIAPINE TAKE ORAL ACTIVE 01/20/2023 [id number] CLARK, S FUMARATE THREE 3 2021 IELD 25MG TAB TABLETS BY MOUTH AT BEDTIME -FOR MOOD QUETIAPINE TAKE ORAL DISCONT 07/22/2022 [id number] CLARK ,S springF FUMARATE THREE INUED 2 2021 IELD 25MG TAB TABLETS BY MOUTH AT BEDTIME -FOR MOOD QUETIAPINE TAKE ORAL DISCONT 12/25/2021 [id number] CLARK, S springF FUMARATE THREE INUED 2 TEPHEN 2020 IELD 25MG TAB TABLETS BY MOUTH AT BEDTIME -FOR MOOD TURMERIC TAKE BY ORAL ACTIVE NADAZDIN- 25/ SPR INGF CAP/TAB MOUTH 2020 IELD ONCE OGNJENKA DAILY M VITAMIN B TAKE 1 ORAL ACTIVE NADAZDIN- 25/ SPR INGF COMPLEX CAP CAPSULE 2020 IE LD BY MOUTH OGNJENKA ONCE M DAILY Immunizations Combined list of available immunizations from the Department of Defense and Veterans Affairs facilities. Immunization Series Date Administered Site Reaction Lot CVX Drug St atus Comments Source Given By Number Code Brazer Electronic INFLUENZA, complet INJECTABLE, 2020 ed IE LD QUADRIVALENT, PRESERVATIVE FREE COVID-19 3 complet VA (PFIZER), 2020 ed CNTR L MRNA, LNP-S, W STRN PF, 30 [place] MCG/0.3 ML SET S DOSE HCS ZOSTER 2 complet SPRI NGF RECOMBINANT 2020 ed IE LD COVID-19 2 complet PFR; [facility] (PFIZER), 2020 ed [id number]; CN TRL MRNA, LNP-S, 02 WSTRN PF, 30 1 [place] MCG/0.3 ML SET S DOSE HCS COVID-19 1 complet PFR; [facility] (PFIZER), 2020 ed [id number]; CN TRL MRNA, LNP-S, 02 WSTRN PF, 30 1 [place] MCG/0.3 ML SET S DOSE HCS INFLUENZA, complet INJECTABLE, 2019 ed IE LD QUADRIVALENT, PRESERVATIVE FREE ZOSTER 1 complet SPRI NGF RECOMBINANT 2019 ed IE LD INFLUENZA, complet Site: INJECTABLE, 2017 ed Left IE LD QUADRIVALENT Deltoid PNEUMOCOCCAL complet POLYSACCHARID 2017 ed IELD E PPV23 INFLUENZA, complet Site: SEASONAL, 2016 ed Left IELD INJECTABLE Deltoid INFLUENZA, complet says magdalena ot [facility] SEASONAL, 2016 ed it at the [facility] INJECTABLE [facility] WST RN [place] SETS HCS FLU,3 YRS complet S GF (HISTORICAL) 2015 ed I ELD HEP A, ADULT 08/03/ NONE 52 complet 2nd of 2 2015 ed shots for IELD Booster. HEP A, ADULT 10/09/ ROCHVALENCIA 52 compl et 2014 M ed IELD FLU,3 YRS complet Site: S GF (HISTORICAL) 2012 ed Right I ELD Deltoid DTAP, complet SPRIN GF UNSPECIFIED 2012 ed IE LD FORMULATION FLU,3 YRS complet Site: V A (HISTORICAL) 2008 ed Right C NTRL Deltoid WSTRN [place] SETS [facility] Results Combined list of recent chemistry, hematology and other laboratory results from Department of Defense and Veterans Affairs, ranging from 15 months to all on record, depending upon the facility. Order Results Value Reference Date Interpretation Specimen Commen ts Source Name Range FENTANYL FENTANYL NONE-DET 05/26 Specimen Type : URINE [place] SCREEN [PRESENCE] ECTED /2022 Comment: Uri ne with Cr <5 is diluted or substituted. Cr between 5 and 20 is very dilute. Urine with SG of 1.001 or less is diluted or substituted. SG of 1.003 or less is very dilute. Urine with LD PANEL IN URINE a pH <3 or >11 has been adulterated and is unsuitable for testing by our current method. Urine with pH between 3 and 4 OR 10 and 11 may have been adulterated. FENTANYL CONFIRMATION NOT SENT BY LAB. BY SCREEN Ordering Prov ider: THEA CLARK METHOD Report Released Date/Time: May 24, 2022 05:46 PM Reporting Lab: [place] [facility] [place] [facility] [address] [facility] [address] Performing Lab: [place] [facility] MiNameTRN [place] [facility] [address] [facility] [address] FENTANYL PH OF 5.0 4 - 10 05/26 Specimen Type: URINE [place] SCREEN URINE /2022 Comment: Urine with Cr <5 is diluted or substituted. Cr between 5 and 20 is very dilute. Urine with SG of 1.001 or less is diluted or substituted. SG of 1.003 or less is very dilute. Urine with LD PANEL a pH <3 or >11 h as been adulterated and is unsuitable for testing by our current method. Urine with pH between 3 and 4 OR 10 and 11 may have been adulterated. FENTANYL CONFIRMATION NOT SENT BY LAB. Ordering Provid er: THEA CLARK Report Released Date/Time: May 24, 2022 05:46 PM Reporting Lab: [place] [facility] MiNameTR[facility] [place] [facility] [address] [facility] [address] Performing Lab: [place] MiNameTRN AuctionPayCHUSETongxue [address] [address] FENTANYL CREATININE 12.94 20 02/ L Specimen Typ e: URINE [place] SCREEN [MASS/VOLU /2022 Comment: Uri ne with Cr <5 is diluted or substituted. Cr between 5 and 20 is very dilute. Urine with SG of 1.001 or less is diluted or substituted. SG of 1.003 or less is very dilute. Urine with LD PANEL ME] IN a pH <3 or >11 h as been adulterated and is unsuitable for testing by our current method. Urine with pH between 3 and 4 OR 10 and 11 may have been adulterated. FENTANYL CONFIRMATION NOT SENT BY LAB. URINE Ordering Provid er: THEA CLARK Report Released Date/Time: May 24, 2022 05:46 PM Reporting Lab: [address] [address] Performing Lab: [place] [address] FENTANYL SPECIFIC 1.007 1.003 - 05/26 Specimen Type: URINE [place] SCREEN GRAVITY OF 1.020 /2022 Comment: Uri ne with Cr <5 is diluted or substituted. Cr between 5 and 20 is very dilute. Urine with SG of 1.001 or less is diluted or substituted. SG of 1.003 or less is very dilute. Urine with LD PANEL URINE a pH <3 or >11 h as been adulterated and is unsuitable for testing by our current method. Urine with pH between 3 and 4 OR 10 and 11 may have been adulterated. FENTANYL CONFIRMATION NOT SENT BY LAB. Ordering Provid er: THEA CLARK Report Released Date/Time: May 24, 2022 05:46 PM Reporting Lab: [address] [address] Performing Lab: [address] [address] ETG ETHYL Negative 05/26 L Specimen Type: URINE [place] SCREEN GLUCURONID /2022 Comment: MAXINE test are qualitative, any L or H flags only indicate a [facility] alert was sent. This ETG test was developed and its performance characteristics determined by [place] clinical lab. The [place] Food and Davdi LD (wx) E g Administration has not approved or cleared this test, FDA clearance or approval is not currently required for clinical use. ETG cutoff 500 ng/mL [PRESENCE] Ordering Pro vider: THEA CLARK IN URINE Report Release d Date/Time: May 24, 2022 05:46 PM BY SCREEN Reporting Lab : [facility] METHOD [address] [facility] [address] Performing Lab: [facility] [address] [address] METHADON METHADONE None 05/26 L Specimen Type : URINE [place] E SCREEN [PRESENCE] detected /2022 Comment: D AU test are qualitative, any L or H flags only indicate a VA alert was sent. LD IN URINE (Negativ Ordering Prov ider: THEA CLARK BY SCREEN e) Report Releas ed Date/Time: May 24, 2022 05:46 PM METHOD Reporting Lab: [facility] [address] [facility] [address] Performing Lab: [facility] [address] [address] ALCOHOL, ETHANOL NONE-DET - 10 05/26 Specimen Type: URINE [place] ETHYL [MASS/VOLU ECTED /2022 Comment: Uri ne with Cr <5 is diluted or substituted. Cr between 5 and 20 is very dilute. Urine with SG of 1.001 or less is diluted or substituted. SG of 1.003 or less is very dilute. Urine with LD URINE ME] IN a pH <3 or >11 h as been adulterated and is unsuitable for testing by our current method. Urine with pH between 3 and 4 OR 10 and 11 may have been adulterated. PANEL URINE Ordering Provid er: THEA CLARK Report Released Date/Time: May 24, 2022 05:46 PM Reporting Lab: [facility] [address] [facility] [address] Performing Lab: [facility] [address] [address] ALCOHOL, PH OF 5.0 4 - 10 05/26 Specimen Type: URINE [place] ETHYL URINE /2022 Comment: Urine with Cr <5 is diluted or substituted. Cr between 5 and 20 is very dilute. Urine with SG of 1.001 or less is diluted or substituted. SG of 1.003 or less is very dilute. Urine with LD URINE a pH <3 or >11 h as been adulterated and is unsuitable for testing by our current method. Urine with pH between 3 and 4 OR 10 and 11 may have been adulterated. PANEL Ordering Provid er: THEA CLARK Report Released Date/Time: May 24, 2022 05:46 PM Reporting [facility] [address] [address] Performing Lab: [address] [address] ALCOHOL, CREATININE 13.38 20 02/ L Specimen Typ e: URINE [place] ETHYL [MASS/VOLU /2022 Comment: Uri ne with Cr <5 is diluted or substituted. Cr between 5 and 20 is very dilute. Urine with SG of 1.001 or less is diluted or substituted. SG of 1.003 or less is very dilute. Urine with LD URINE ME] IN a pH <3 or >11 h as been adulterated and is unsuitable for testing by our current method. Urine with pH between 3 and 4 OR 10 and 11 may have been adulterated. PANEL URINE Ordering Provid er: THEA CLARK Report Released Date/Time: May 24, 2022 05:46 PM Reporting [facility] [address] [address] Performing Lab: [address] [address] ALCOHOL, SPECIFIC 1.006 1.003 - 05/26 Specimen Type: URINE [place] ETHYL GRAVITY OF 1.020 /2022 Comment: Uri ne with Cr <5 is diluted or substituted. Cr between 5 and 20 is very dilute. Urine with SG of 1.001 or less is diluted or substituted. SG of 1.003 or less is very dilute. Urine with LD URINE URINE a pH <3 or >11 h as been adulterated and is unsuitable for testing by our current method. Urine with pH between 3 and 4 OR 10 and 11 may have been adulterated. PANEL Ordering Provid er: TEHA CLARK Report Released Date/Time: May 24, 2022 05:46 PM Reporting Lab: [address] [address] Performing Lab: [address] [address] AMPHETAM AMPHETAMIN NONE-DET - 1000 05/26 Specimen Ty pe: URINE RADHA MERLOS ES ECTED /2022 Comment: Urine with Cr <5 is diluted or substituted. Cr between 5 and 20 is very dilute. Urine with SG of 1.001 or less is diluted or substituted. SG of 1.003 or less is very dilute. Urine with LD SCREEN [PRESENCE] a pH <3 or >1 1 has been adulterated and is unsuitable for testing by our current method. Urine with pH between 3 and 4 OR 10 and 11 may have been adulterated. PANEL IN URINE Ordering Provi khris: THEA CLARK Report Released Date/Time: May 24, 2022 05:46 PM Reporting Lab: [address] [address] Performing Lab: [address] [address] AMPHETAM PH OF 5.0 4 - 10 05/26 Specimen Type: URINE RADHA MERLOS URINE /2022 Comment: Urine with Cr <5 is diluted or substituted. Cr between 5 and 20 is very dilute. Urine with SG of 1.001 or less is diluted or substituted. SG of 1.003 or less is very dilute. Urine with LD SCREEN a pH <3 or >11 h as been adulterated and is unsuitable for testing by our current method. Urine with pH between 3 and 4 OR 10 and 11 may have been adulterated. PANEL Ordering Provid er: THEA CLARK Report Released Date/Time: May 24, 2022 05:46 PM Reporting Lab: [address] [address] Performing Lab: [address] [address] AMPHETAM CREATININE 13.38 20 / L Specimen Typ e: URINE RADHA MERLOS [MASS/VOLU /2022 Comment: Uri ne with Cr <5 is diluted or substituted. Cr between 5 and 20 is very dilute. Urine with SG of 1.001 or less is diluted or substituted. SG of 1.003 or less is very dilute. Urine with LD SCREEN ME] IN a pH <3 or >11 h as been adulterated and is unsuitable for testing by our current method. Urine with pH between 3 and 4 OR 10 and 11 may have been adulterated. PANEL URINE Ordering Provid er: THEA CLARK Report Released Date/Time: May 24, 2022 05:46 PM Reporting Lab: [address] [address] Performing Lab: [address] [address] AMPHETAM SPECIFIC 1.006 1.003 - 05/26 Specimen Type: URINE RADHA GAURANG GRAVITY OF 1.020 /2022 Comment: Uri ne with Cr <5 is diluted or substituted. Cr between 5 and 20 is very dilute. Urine with SG of 1.001 or less is diluted or substituted. SG of 1.003 or less is very dilute. Urine with LD SCREEN URINE a pH <3 or >11 h as been adulterated and is unsuitable for testing by our current method. Urine with pH between 3 and 4 OR 10 and 11 may have been adulterated. PANEL Ordering Provid er: THEA CLARK Report Released Date/Time: May 24, 2022 05:46 PM Reporting Lab: [address] [address] Performing Lab: [address] [address] BENZODIA BENZODIAZE NONE-DET - 200 05/26 Specimen Ty pe: URINE RADHA DUNCAN PINEGermain ECTED /2022 Comment: Urine with Cr <5 is diluted or substituted. Cr between 5 and 20 is very dilute. Urine with SG of 1.001 or less is diluted or substituted. SG of 1.003 or less is very dilute. Urine with LD SCREEN [PRESENCE] a pH <3 or >1 1 has been adulterated and is unsuitable for testing by our current method. Urine with pH between 3 and 4 OR 10 and 11 may have been adulterated. PANEL IN URINE Ordering Provi khris: THEA CLARK BY SCREEN Report Releas ed Date/Time: May 24, 2022 05:46 PM METHOD Reporting Lab: [facility] [address] [address] Performing Lab: [address] [address] BENZODIA PH OF 5.0 4 - 10 05/26 Specimen Type: URINE ROSEFIE CORDELLS URINE /2022 Comment: Urine with Cr <5 is diluted or substituted. Cr between 5 and 20 is very dilute. Urine with SG of 1.001 or less is diluted or substituted. SG of 1.003 or less is very dilute. Urine with LD SCREEN a pH <3 or >11 h as been adulterated and is unsuitable for testing by our current method. Urine with pH between 3 and 4 OR 10 and 11 may have been adulterated. PANEL Ordering Provid er: THEA CLARK Report Released Date/Time: May 24, 2022 05:46 PM Reporting Lab: [address] [address] Performing Lab: [place] [address] BENZODIA CREATININE 13.38 20 05/26 L Specimen Typ e: [facility]INE [facility] [MASS/VOLU /2022 Comment: Uri ne with Cr <5 is diluted or substituted. Cr between 5 and 20 is very dilute. Urine with SG of 1.001 or less is diluted or substituted. SG of 1.003 or less is very dilute. Urine with LD SCREEN ME] IN a pH <3 or >11 h as been adulterated and is unsuitable for testing by our current method. Urine with pH between 3 and 4 OR 10 and 11 may have been adulterated. PANEL URINE Ordering Provid er: THEA CLARK Report Released Date/Time: May 24, 2022 05:46 PM Reporting Lab: [address] [address] Performing Lab: [place] [address] BENZODIA SPECIFIC 1.006 1.003 - 05/26 Specimen Type: URINE [facility] GRAVITY OF 1.020 Comment: Uri ne with Cr <5 is diluted or substituted. Cr between 5 and 20 is very dilute. Urine with SG of 1.001 or less is diluted or substituted. SG of 1.003 or less is very dilute. Urine with LD SCREEN URINE a pH <3 or >11 h as been adulterated and is unsuitable for testing by our current method. Urine with pH between 3 and 4 OR 10 and 11 may have been adulterated. PANEL Ordering Provid er: THEA CLARK Report Released Date/Time: May 24, 2022 05:46 PM Reporting Lab: [place] [facility] [place] [address] [address] Performing Lab: [facility] [place] [address] [address] BUPRENOR BUPRENORPH NONE-DET 05/26 Specimen Ty pe: URINE RADHA MORENO INE ECTED /2022 Comment: Urine with Cr <5 is diluted or substituted. Cr between 5 and 20 is very dilute. Urine with SG of 1.001 or less is diluted or substituted. SG of 1.003 or less is very dilute. Urine with LD SCREEN [PRESENCE] a pH <3 or >1 1 has been adulterated and is unsuitable for testing by our current method. Urine with pH between 3 and 4 OR 10 and 11 may have been adulterated. PANEL IN URINE Ordering Provi khris: THEA CLARK Report Released Date/Time: May 24, 2022 05:46 PM Reporting Lab: [place] [facility] [place] [address] [address] Performing Lab: [facility] [address] BUPRENOR PH OF 5.0 4 - 10 05/26 Specimen Type: URINE RADHA MORENO URINE /2022 Comment: Urine with Cr <5 is diluted or substituted. Cr between 5 and 20 is very dilute. Urine with SG of 1.001 or less is diluted or substituted. SG of 1.003 or less is very dilute. Urine with LD SCREEN a pH <3 or >11 h as been adulterated and is unsuitable for testing by our current method. Urine with pH between 3 and 4 OR 10 and 11 may have been adulterated. PANEL Ordering Provid er: THEA CLARK Report Released Date/Time: May 24, 2022 05:46 PM Reporting Lab: [facility] [address] [address] Performing Lab: [address] [address] BUPRENOR CREATININE 13.38 20 05/26 L Specimen Typ e: URINE ROSEFIE PHINE [MASS/VOLU /2022 Comment: Uri ne with Cr <5 is diluted or substituted. Cr between 5 and 20 is very dilute. Urine with SG of 1.001 or less is diluted or substituted. SG of 1.003 or less is very dilute. Urine with LD SCREEN ME] IN a pH <3 or >11 h as been adulterated and is unsuitable for testing by our current method. Urine with pH between 3 and 4 OR 10 and 11 may have been adulterated. PANEL URINE Ordering Provid er: THEA CLARK Report Released Date/Time: May 24, 2022 05:46 PM Reporting Lab: [address] [address] Performing Lab: [address] [address] BUPRENOR SPECIFIC 1.006 1.003 - 05/26 Specimen Type: URINE RADHA BIRDNE GRAVITY OF 1.020 /2022 Comment: Uri ne with Cr <5 is diluted or substituted. Cr between 5 and 20 is very dilute. Urine with SG of 1.001 or less is diluted or substituted. SG of 1.003 or less is very dilute. Urine with LD SCREEN URINE a pH <3 or >11 h as been adulterated and is unsuitable for testing by our current method. Urine with pH between 3 and 4 OR 10 and 11 may have been adulterated. PANEL Ordering Provid er: THEA CLARK Report Released Date/Time: May 24, 2022 05:46 PM Reporting Lab: [address] [address] Performing Lab: [address] [address] CANNABIN CANNABINOI NONE-DET - 50 05/26 Specimen Ty pe: URINE [place] OIDS DS ECTED /2022 Comment: Urine with Cr <5 is diluted or substituted. Cr between 5 and 20 is very dilute. Urine with SG of 1.001 or less is diluted or substituted. SG of 1.003 or less is very dilute. Urine with LD SCREEN [PRESENCE] a pH <3 or >1 1 has been adulterated and is unsuitable for testing by our current method. Urine with pH between 3 and 4 OR 10 and 11 may have been adulterated. PANEL IN URINE Ordering Provi khris: THEA CLARK BY SCREEN Report Releas ed Date/Time: May 24, 2022 05:46 PM METHOD Reporting Lab: [address] [address] Performing Lab: [address] [address] CANNABIN PH OF 5.0 4 - 10 05/26 Specimen Type: URINE [place] OIDS URINE /2022 Comment: Urine with Cr <5 is diluted or substituted. Cr between 5 and 20 is very dilute. Urine with SG of 1.001 or less is diluted or substituted. SG of 1.003 or less is very dilute. Urine with LD SCREEN a pH <3 or >11 h as been adulterated and is unsuitable for testing by our current method. Urine with pH between 3 and 4 OR 10 and 11 may have been adulterated. PANEL Ordering Provid er: THEA CLARK Report Released Date/Time: May 24, 2022 05:46 PM Reporting Lab: [place] [facility] [address] Performing Lab: [address] [address] CANNABIN CREATININE 13.38 20 05/26 L Specimen Typ e: URINE [place] OIDS [MASS/VOLU /2022 Comment: Uri ne with Cr <5 is diluted or substituted. Cr between 5 and 20 is very dilute. Urine with SG of 1.001 or less is diluted or substituted. SG of 1.003 or less is very dilute. Urine with LD SCREEN ME] IN a pH <3 or >11 h as been adulterated and is unsuitable for testing by our current method. Urine with pH between 3 and 4 OR 10 and 11 may have been adulterated. PANEL URINE Ordering Provid er: THEA CLARK Report Released Date/Time: May 24, 2022 05:46 PM Reporting Lab: [facility] [place] [address] [address] Performing [facility]: [facility] [address] [address] CANNABIN SPECIFIC 1.006 1.003 - 05/26 Specimen Type: URINE [place] OIDS GRAVITY OF 1.020 /2022 Comment: Uri ne with Cr <5 is diluted or substituted. Cr between 5 and 20 is very dilute. Urine with SG of 1.001 or less is diluted or substituted. SG of 1.003 or less is very dilute. Urine with LD SCREEN URINE a pH <3 or >11 h as been adulterated and is unsuitable for testing by our current method. Urine with pH between 3 and 4 OR 10 and 11 may have been adulterated. PANEL Ordering Provid er: THEA CLARK Report Released Date/Time: May 24, 2022 05:46 PM Reporting [facility]: [facility] [address] [address] Performing Lab: [facility] [address] [address] COCAINE COCAINE NONE-DET - 300 05/26 Specimen Type: URINE [place] SCREEN [PRESENCE] ECTED /2022 Comment: Uri ne with Cr <5 is diluted or substituted. Cr between 5 and 20 is very dilute. Urine with SG of 1.001 or less is diluted or substituted. SG of 1.003 or less is very dilute. Urine with LD PANEL IN URINE a pH <3 or >11 has been adulterated and is unsuitable for testing by our current method. Urine with pH between 3 and 4 OR 10 and 11 may have been adulterated. BY SCREEN Ordering Prov ider: THEA CLARK METHOD Report Released Date/Time: May 24, 2022 05:46 PM Reporting Lab: [facility] [address] [address] Performing Lab: [facility] [address] COCAINE PH OF 5.0 4 - 10 05/26 Specimen Type: U RINE [place] SCREEN URINE /2022 Comment: Urine with Cr <5 is diluted or substituted. Cr between 5 and 20 is very dilute. Urine with SG of 1.001 or less is diluted or substituted. SG of 1.003 or less is very dilute. Urine with LD PANEL a pH <3 or >11 h as been adulterated and is unsuitable for testing by our current method. Urine with pH between 3 and 4 OR 10 and 11 may have been adulterated. Ordering Provid er: THEA CLARK Report Released Date/Time: May 24, 2022 05:46 PM Reporting Lab: [facility] [address] [address] Performing Lab: [facility] [address] [address] COCAINE CREATININE 13.38 20 / L Specimen Type : URINE [place] SCREEN [MASS/VOLU /2022 Comment: Uri ne with Cr <5 is diluted or substituted. Cr between 5 and 20 is very dilute. Urine with SG of 1.001 or less is diluted or substituted. SG of 1.003 or less is very dilute. Urine with LD PANEL ME] IN a pH <3 or >11 h as been adulterated and is unsuitable for testing by our current method. Urine with pH between 3 and 4 OR 10 and 11 may have been adulterated. URINE Ordering Provid er: THEA CLARK Report Released Date/Time: May 24, 2022 05:46 PM Reporting Lab: [facility] [address] [address] Performing Lab: [address] [address] COCAINE SPECIFIC 1.006 1.003 - 05/26 Specimen Type: URINE [place] SCREEN GRAVITY OF 1.020 /2022 Comment: Uri ne with Cr <5 is diluted or substituted. Cr between 5 and 20 is very dilute. Urine with SG of 1.001 or less is diluted or substituted. SG of 1.003 or less is very dilute. Urine with LD PANEL URINE a pH <3 or >11 h as been adulterated and is unsuitable for testing by our current method. Urine with pH between 3 and 4 OR 10 and 11 may have been adulterated. Ordering Provid er: THEA CLARK Report Released Date/Time: May 24, 2022 05:46 PM Reporting Lab: [facility] [address] Performing Lab: [address] [address] OPIATES OPIATES NONE-DET - 300 05/26 Specimen Type: URINE [place] SCREEN [PRESENCE] ECTED /2022 Comment: Uri ne with Cr <5 is diluted or substituted. Cr between 5 and 20 is very dilute. Urine with SG of 1.001 or less is diluted or substituted. SG of 1.003 or less is very dilute. Urine with LD PANEL IN URINE a pH <3 or >11 has been adulterated and is unsuitable for testing by our current method. Urine with pH between 3 and 4 OR 10 and 11 may have been adulterated. BY SCREEN Ordering Prov ider: THEA CLARK METHOD Report Released Date/Time: May 24, 2022 05:46 PM Reporting Lab: [address] [address] Performing Lab: [address] [address] OPIATES PH OF 5.0 4 - 10 05/26 Specimen Type: U RINE [place] SCREEN URINE /2022 Comment: Urine with Cr <5 is diluted or substituted. Cr between 5 and 20 is very dilute. Urine with SG of 1.001 or less is diluted or substituted. SG of 1.003 or less is very dilute. Urine with LD PANEL a pH <3 or >11 h as been adulterated and is unsuitable for testing by our current method. Urine with pH between 3 and 4 OR 10 and 11 may have been adulterated. Ordering Provid er: THEA CLARK Report Released Date/Time: May 24, 2022 05:46 PM Reporting Lab: [address] [address] Performing Lab: [address] [address] OPIATES CREATININE 13.38 20 / L Specimen Type : URINE [place] SCREEN [MASS/VOLU /2022 Comment: Uri ne with Cr <5 is diluted or substituted. Cr between 5 and 20 is very dilute. Urine with SG of 1.001 or less is diluted or substituted. SG of 1.003 or less is very dilute. Urine with LD PANEL ME] IN a pH <3 or >11 h as been adulterated and is unsuitable for testing by our current method. Urine with pH between 3 and 4 OR 10 and 11 may have been adulterated. URINE Ordering Provid er: THEA CLARK Report Released Date/Time: May 24, 2022 05:46 PM Reporting Lab: [address] [address] Performing Lab: [address] [address] OPIATES SPECIFIC 1.006 1.003 - 05/26 Specimen Type: URINE [facility] SCREEN GRAVITY OF 1.020 Comment: Uri ne with Cr <5 is diluted or substituted. Cr between 5 and 20 is very dilute. Urine with SG of 1.001 or less is diluted or substituted. SG of 1.003 or less is very dilute. Urine with LD PANEL URINE a pH <3 or >11 h as been adulterated and is unsuitable for testing by our current method. Urine with pH between 3 and 4 OR 10 and 11 may have been adulterated. Ordering Provid er: THEA CLARK Report Released Date/Time: May 24, 2022 05:46 PM Reporting Lab: [address] [address] Performing Lab: [address] [address] Vital Signs Combined list of inpatient and outpatient Vital Signs from Department of Defense and Veterans Affairs, ranging from 12 months to all on record, depending upon the facility. Vital Sign Value Date Comments Source SYSTOLIC BLOOD PRESSURE 143 05/04/2022 13:13:04 [place] DIASTOLIC BLOOD PRESSURE 68 05/04/2022 13:13:04 [place] PULSE OXIMETRY 96% 05/04/2022 13:13:04 [facility] WEIGHT 215 05/04/2022 13:13:04 [facility] BMI 34kg/m2 05/04/2022 13:13:04 [facility] PAIN 0 05/04/2022 [facility] 67 05/04/2022 13:13:04 [place] [facility] TEMPERATURE 97.9 05/04/2022 13:13:04 [place] PULSE 73 05/04/2022 13:13:04 [place] RESPIRATION 16 05/04/2022 13:13:04 [facility] SYSTOLIC BLOOD PRESSURE 126 11/02/2021 13:40:01 [place] DIASTOLIC BLOOD PRESSURE 75 11/02/2021 13:40:01 [place] PULSE OXIMETRY 97% 11/02/2021 13:40:01 [place] WEIGHT 215 11/02/2021 13:40:01 [place] [facility] BMI 34kg/m2 11/02/2021 13:40:01 [facility] PAIN 1 11/02/2021 13:40:01 [facility] HEIGHT 67 11/02/2021 13:40:01 [place] TEMPERATURE 98.5 11/02/2021 13:40:01 [facility] PULSE 87 11/02/2021 13:40:01 [facility] RESPIRATION 16 11/02/2021 13:40:01 [facility] Encounters Combined list of: 1) Encounters from Department of Veterans Affairs facilities going back up to the last 18 months. 2) Encounters from the Department of Defense facilities going back up to 280 months. Location Location Encounter Encounter Reason Attending ADM DC Stat us Disposition Source Details Type Number For Provider Date Date Visit OFFICE O/P [id number] Jani AMBER 12/24 [facility] [place] [id number] is: RASTA IELD 40-54 MIN 19 ICD-10- CM F43.12 Post-tr aumatic stress disorde r, chronic
wi th Provide r Comment s: Chronic post-tr aumatic stress disorde r (SCT [id number] 04) Outpatient [id number] 01/08 [id number] [place] [facility] Outpatient [id number] 02/06 [facility] En[facility] [id number] [facility] [place] [facility] Outpatient 46698-0.02/06 [facility] En[facility] [id number] [facility] [place] [facility] Outpatient 45512-2.02/23 [facility] En[facility] [id number] /2021 [facility] [place] [facility] OFFICE O/P 97490-763 Diagnos CLARK,ST 02/24 [facility] [place] [id number] is: EPHEN G IELD 40-54 MIN 76 ICD-10- CM F43.12 Post-tr aumatic stress disorde r, chronic
wi th Provide r Comment s: Chronic post-tr aumatic stress disorde r (SCT [id number] 04) Outpatient [id number] 02/24 [facility] [id number] [facility] [place] [facility] Outpatient [id number] 03/03 [facility] Encounter [id number] /2021 [facility] [place] [facility] OFFICE O/P Diagnos NADAZDIN-B 04/10 [facility] EST MOD [id number] is: JORDON,OG IE LD 30-39 MIN 68 ICD-10- NJENKA M CM F10.20 Alcohol depende nce, uncompl icated< br/>wit h Provide r Comment s: Alcohol depende nce (SCT [id number] 3) Outpatient [id number] 04/16 [facility] [id number] [facility] [place] [facility] OFFICE O/P Diagnos CLARK,ST 05/22 [facility] [place] [id number] is: EPHEN IELD 40-54 MIN 92 ICD-10- CM F43.12 Post-tr aumatic stress disorde r, chronic
wi th Provide r Comment s: Chronic post-tr aumatic stress disorde r (SCT [id number] 04) Outpatient [id number] 06/10 [facility] [id number] [facility] [place] [facility] Outpatient [id number] 06/10 [facility] Encounter [id number] [facility] [place] [facility] [place] [address]-1.63 Diagnos TORDA,CHRI 06/11 [facility] DIG [id number] is: RAMONA [facility] ASSMT&MGMT ICD-10- JESSICA W[facility]N 5-10 CM [place] Z04.89 SETS Encount [facility] er for examina tion and observa tion for oth reasons
wi Provide r Comment s: Encount er & Observa tion for Oth Spec Reason OFFICE O/P 74316-9.63 Diagnos [facility] 07/21 [facility] [place] [id number] is: EPHEN IELD 40-54 MIN 14 ICD-10- CM F43.12 Post-tr aumatic stress disorde r, chronic
wi th Provide r Comment s: Chronic post-tr aumatic stress disorde r (SCT [id number] 04) Outpatient [id number] 08/21 [facility] Encounter [id number] IELD 43 Outpatient [id number] 08/21 [facility] Encounter [id number] /2022 [facility] [place] [facility] Outpatient [id number] 08/21 [facility] Encounter 1. [facility] [place] [facility] Outpatient [id number] 09/15 [facility] Encounter [id number] [facility] [place] [facility] Outpatient 46783-2.63 09/24 [facility] Encounter [id number] /2022 [facility] [place] [facility] OFFICE O/P Diagnos [facility] 09/29 [facility] [place] [id number] is: EPHEN IELD 40-54 MIN 05 ICD-10- CM F43.12 Post-tr aumatic stress disorde r, chronic
wi Provide r Comment s: Chronic post-tr aumatic stress disorde r (SCT [id number] 04) Outpatient [id number] 10/02 [facility] [id number] [facility] [place] [facility] Outpatient [id number] 10/02 [facility] Encounter [id number] [facility] [place] [facility] Outpatient [id number] 10/16 [facility] Encounter [id number] [facility] [place] [facility] Outpatient 68010-4.63 10/30 [facility] [id number] [facility] [place] [facility] [facility] OFFICE O/P Diagnos DELPHINE BRUCE 11/02 [facility] EST MOD [id number] is: L IELD 30-39 MIN 53 ICD-10- CM I10 Essenti al (primar y) hyperte nsion<b r/>with Provide r Comment s: Essenti al (Primar y) Hyperte nsion OFFICE O/P Diagnos GHAZAL TRAOREL 11/06 [facility] NEW MOD [id number] is: ES IELD 45-59 MIN 56 ICD-10- CM M72.2 Plantar fascial fibroma tosis<b r/>with Provide r Comment s: Plantar fascial fibroma tosis OFFICE O/P Diagnos CLARK,ST 11/13 [facility] [place] [id number] is: EPHEN IELD 40-54 MIN 02 ICD-10- CM F43.12 Post-tr aumatic stress disorde r, chronic
wi th Provide r Comment s: Chronic post-tr aumatic stress disorde r (SCT [id number] 04) OFFICE O/P Diagnos CLARK,ST 01/19 [facility] EST MOD [id number] is: EPHEN IELD 30-39 MIN 94 ICD-10- CM F43.12 Post-tr aumatic stress disorde r, chronic
wi th Provide r Comment s: Chronic post-tr aumatic stress disorde r (SCT [id number] 04) OFFICE O/P Diagnos CLARK,ST 03/23 [facility] EST MOD [id number] is: EPHEN IELD 30-39 MIN 46 ICD-10- CM F43.12 Post-tr aumatic stress disorde r, chronic
wi th Provide r Comment s: Chronic post-tr aumatic stress disorde r (SCT [id number] 04) OFFICE O/P Diagnos NADAZDIN-B 05/04 [facility] EST MOD [id number] is: IRMA RUVALCABA IE LD 30-39 MIN 83 ICD-10- NJENKA M CM F10.20 Alcohol depende nce, uncompl icated< br/>wit h Provide r Comment s: Alcohol depende nce ([facility] [id number] 3) OFFICE O/P 49614-7.63 Diagnos AMBERST 05/21 [facility] EST MOD [id number] is: EPHEN G IELD 30-39 MIN 81 ICD-10- CM F31.32 Bipolar disorde r, current episode depress ed, moderat e
w ith Provide r Comment s: Bipolar affecti ve disorde r, current episode depress ion ([facility] [id number] 08) Procedures Combined list of: 1) Procedures from Department of Veterans Affairs facilities going back up to the last 18 months, not all [place] non-surgical procedures are included; 2) All procedures from the Department of Defense facilities. Procedure Procedure Type Code Date Perfomer Comments Sourc e PATIENT EDUCATION, NOT 09/24/2004 [facility] OTHERWISE CLASSIFIED, NON-PHYSICIAN PROVIDER, INDIVIDUAL, PER SESSION PURE TONE AUDIOMETRY 03/28/2003 DoD (THRESHOLD); AIR ONLY Social History Combined list of available smoking, tobacco, and other social [facility]. Social History Type Response Date Comment Source Tobacco smoking [facility]-TO[facility]ACCO NEVER USED 05/04/2022 [facility] status [place] History of tobacco VA-TOBACCO NEVER USED 05/22/2021 [place] use History of tobacco VA-TOBACCO NEVER USED 05/22/2020 [place] use History of tobacco VA-TOBACCO NEVER USED 12/14/2018 [place] use History of tobacco ORYX ADMIT TOBACCO 01/11/2018 [facility] use SCREEN NO [facility] History of tobacco VA-TOBACCO NEVER USED 12/19/2017 [place] use History of tobacco LIFETIME NON-TOBACCO 06/07/2017 [place] use USER History of tobacco LIFETIME NON-TOBACCO 06/01/2016 [place] use USER History of tobacco TOBACCO INPATIENT NO 09/16/2015 [facility] use USE 30 DAYS [place] [facility] History of tobacco LIFETIME NON-TOBACCO 05/29/2015 [place] use USER History of tobacco TOBACCO INPATIENT NO 01/01/2015 [facility] use USE 30 [facility]YS [place] [facility] History of tobacco TOBACCO INPATIENT NO 09/14/2013 V A [facility] use USE 30 DAYS [place] [facility] History of tobacco LIFETIME NON-TOBACCO 11/20/2007 S [facility] use USER This section is an [facility] empty social history section. Plan of Care List of future care activities from Department of Veterans Affairs facilities. Additional future care activities may be listed in the Assessment and Plan section. Date/Time Care Activity Care Activity Detail Facility 06/18/2022 AMBULATORY - PSYCHIATRY [place] - [place]IATRY [place]
--- OUTSIDE RECORDS SUMMARY | 2022-06-12 20:03 | XMS_ITS | Encounter Summary ---
:1970 Author Organization Department [facility] rs Address [address] [place] [address] Support Name Relationship Address Phone ASHOK FINCH Unavailable [address] [facility] [phone] [place] [address] ASHOK FINCH Unavailable [address];3RD FLOOR ( [phone] [place] [address] MUSEUM OR ZOO DIRECTOR, VIDA Unavailable [address] [facility] [address] Insurance Providers: All historical and current Section [...] Name to Policy Number Valencia [facility] Oct 23, [id number] JASMYN TTA, PATIENT SCRIPTS ION 2017 [id number] RAN ([id number]) [facility] Oct 23, [id number] JASMYN TTA, PATIENT SCRIPTS ION 2018 [id number] RAN ([id number]) [facility] Jun 27, [id number] JASMYN TTA, PATIENT [facility] 2019 [id number] RAN CE [facility] Oct 23, [id number] JASMYN TTA, PATIENT [facility] 2018 [id number] RAN OLIVEROS SULLY [employer] [facility] August 26, [id number] JASMYN TTA, PATIENT [facility] 2017 [id number] RAN MEDELI [employer] [facility] August 26, [id number] [phone] JASMYN TTA, PATIENT LUI DEDUCTIBL ATE [id number] RAN Goodman [facility] September 05, [id number] [phone] JASMYN TTA, PATIENT [facility] [place] [facility] [id number] RAN [facility] Selected Encounter This section includes the information on record at [place] for the Encounter. Date/Time Encounter Type Encounter Reason Provider Source Description Nov 06, 2021 OFFICE O/P NEW PODIATRY ICD-10-CM M72.2 LARRY TRAORE 10:00 AM MOD 45-59 MIN Plantar fascial F fibromatosis with Provider Comments: Plantar fascial fibromatosis IHE Encounter Template Text not used by [facility] Assessments - Encounter Diagnoses This section includes the primary and secondary diagnoses documented for the Encounter. Date/Time Primary/Secondary Diagnosis Name Provider Source Diagnosis Nov 06, 2021 PRIMARY Plantar fascial LARRY TRAORE CHRISTOEL D 10:57 AM fibromatosis Nov 06, 2021 SECONDARY Pain in left foot LARRY TRAORE ELD 10:57 AM Nov 06, 2021 SECONDARY Pain in right foot LARRY TRAORE IELD 10:57 AM Plan of Treatment: Future Appointments (+ 6 months) and Future Tests (+/- 45 days) The Plan of Treatment section includes future care activities for the patient from all [place] treatmentfacilities. This section includes future appointments and future orders which are active, pending orscheduled.Future Appointments This section includes appointments that were scheduled to occur 6 months from the date of the Encounter, up to a maximum of 20 appointments. The data comes from all [place] treatment facilities. Appointment Date/Time Appointment Type Appointment Facili ty Name Nov 13, 2021 03:00 PM AMBULATORY - PSYCHIATRY [facility] Jan 19, 2022 02:00 PM AMBULATORY - [facility]IATRY [facility] Mar 23, 2022 02:00 PM AMBULATORY - [facility]CHIATRY [facility] May 04, 2022 01:00 PM AMBULATORY - MEDICINE [facility] Social History: Smoking Status (Most current) and Tobacco Use (All prior to encounter date) This section includes the most current, and the historical, smoking and tobacco-related health factors from the [facility] facility where the Encounter took place.Current Smoking Status This section includes the most current smoking, or tobacco-related health factor, from the [facility] where the Encounter took place. Date/Time Current Smoking Status Comment Facility May 22, 2021 09:00 AM [facility] Tobacco Use History This section includes a history of the smoking, or tobacco- related health factors, that were collected on or before the date of the Encounter. The data comes from the [place] facility where the Encounter took place. Date/Time Smoking Status/Tobacco Use Comment [facility] May 22, 2020 10:30 AM VA-TOBACCO NEVER USED [facility] [place] Dec 14, 2018 03:55 PM VA-TOBACCO NEVER USED [facility] [place] Dec 19, 2017 03:19 PM VA-TOBACCO NEVER USED [facility] [place] Jun 07, 2017 03:02 PM LIFETIME NON-TOBACCO USER [facility] Jun 01, 2016 10:33 AM LIFETIME NON-TOBACCO USER [facility] May 29, 2015 02:35 PM LIFETIME NON-TOBACCO USER [facility] Nov 20, 2007 02:48 PM LIFETIME NON-TOBACCO USER [facility] Encounter Notes: All associated encounter notes This section contains the clinical notes associated to the Encounter. Date/Time Encounter Note(s) Provider Source Dec 29, 2021 02:32 PM LETTERS: SHELBI PEDROZA [facility] TITLE: PATIENT LETTER (B) STANDARD TITLE: LETTERS DATE OF NOTE: DEC 29, 2021@14:32 ENTRY DATE: DEC 29, 2021@14:32:40 AUTHOR: SHELBI PEDROZA EXP COSIGNER: URGENCY: STATUS: COMPLETED DEPARTMENT OF [facility] DEC 29, [address] [place] [address], [id number] Dear RAN FINCH, This is a reminder letter that your NIKOLAS ORT HOTICS are ready for pick at the [facility] located at [address] [place] [address]. You may curing pickling packer your shoes and or orthotics at y our convenience any day, Tuesday through Tuesday between 8:30am and 3:30pm. You do not need an appointment. BUT WE DO REQUEST THAT YOU CALL BEFORE ARRIVING TO MAKE SURE THE PODIATRY HEALTH ZIPPER TRIMMER HAND IS AVAILABLE ON THAT DAY. Call [phone] for Shelbi if you have any ques tions. We hope to see you soon, Podiatry Staff [facility] [address] [place] [id number] Nov 06, 2021 07:37 AM PODIATRY CONSULT: [facility] TITLE: CONSULT REPORT/PODIATRY STANDARD TITLE: PODIATRY CONSULT DATE OF NOTE: NOV 06, 2021@07:37 ENTRY DATE: NOV 06, 2021@07:37:43 AUTHOR: LARRY TRAORE EXP COSIGNER: URGENCY: STATUS: COMPLETED NAME: RAN IFNCH DATE: NOV 06 : Oct PCP: ALEXIS JAMES LAST SEEN- Coronavirus Disease 2019 (COVID-19) Screen The patient reports no COVID-19 diagnosis. The patient reports not waiting for the results of a COVID-19 lab test. The patient reports no fever. The patient reports no new or worsening cough o r shortness of breath. The patient reports no cold or flu-like symptom s. The patient reports no new onset of diarrhea, n ausea or vomiting. The patient reports no new onset of hea dache, loss of taste or loss of smell. The patient reports no exposure to someone with COVID-19 within the past 2 weeks. Result: Screen is negative. NOTE: HAS RECEIVED BOTH COVID VACCIN E DOSES + BOOSTER AT [facility] *PERFORMED AT CHECK-IN AND REVIEWED BY DR. TRAORE PRIOR TO TREATMENT* LAST SEEN: INITIAL CONSULT VISIT TODAY HPI: Pt. is a 50 yo alert WDWN CAUC MALE who pre sents for initial podiatric examination with Dr. Traore for treatment of a pre senting complaint of a painful LEFT HEEL WITH A POSSIBLE DX OF PLANTA R FASCIITIS PER PCP. Patient has been referred by: DR. KAIT AGUILA Location of symptoms are: LEFT HEEL Onset of symptoms has been several month s due to this being a recent condition that has been exacerbating over the past few wee ks especially after jogging. Duration of symptoms is daily with periods of ex acerbation and remission. Description of symptoms is of an aching SHARP na ture. Contributing factors are: shoes and increased ac tivity. Previous treatment:NONE PMH: Active problems - Computerized Problem List is t he source for the followin. Cocaine user 2. Alcohol dependence 3. Acute low back pain 4. Hypnotic or anxiolytic abuse 5. Hepatitis C antibody test positive 6. Liver function tests abnormal 7. Hyperlipidemia 8. Bipolar affective disord er, current episode depression (SNOMED CT 721796970) 9. Benign essential hypertension (SNOMED CT 688 9557) 10. Chronic post-traumatic stress disorder (SN ED CT 957675532) 11. Bursitis 12. Alcoholic hepatitis (SNOMED CT 564411817) 13. Pain in joint involving shoulder region 14. Nevus, non-neoplastic *NOTE: REVIEWED ABOVE NOTING Non-contributory TO THE CC . Family History: Non-contributory Social History: N/A Current medications: Active Outpatient Medicatio ns (including Supplies): *NOTE: DENIES ANY RECENT CHANGES IN MEDS UPON QU ESTIONING TODAY-SEE RECONCILIATION PERFORMED THIS DATE BELOW TOBACCO USE = NONE Active Outpatient Medications Status 1) BUSPIRONE HCL 5MG TAB TAKE ONE TABLET BY MOUT H TWICE ACTIVE DAILY FOR ANXIETY 2) CHOLECALCIF 10MCG (D3-400UNIT) TAB TAKE ONE T ABLET BY ACTIVE MOUTH ONCE DAILY FOR VITAMIN SUPPLEMENTATION 3) DOCUSATE NA 100MG CAP TAKE ONE CAPSULE BY EVANGELINA TH TWICE ACTIVE DAILY NEEDED TO SOFTEN STOOL 4) GABAPENTIN 300MG CAP TAKE ONE CAPSULE BY MOUT H THREE ACTIVE TIMES DAILY NEEDED FOR ANXIETY 5) LISINOPRIL 30MG TAB TAKE ONE TABLET BY MOUTH ONCE ACTIVE (S) DAILY TO CONTROL BLOOD PRESSURE 6) PRAVASTATIN NA 40MG TAB TAKE ONE TABLET BY MO UTH ONCE ACTIVE DAILY FOR CHOLESTEROL 7) PSYLLIUM ORAL PWD TAKE 1 TEASPOONFUL BY MOUTH TWICE HOLD DAILY (MIX WITH AT LEAST 8OZ. OF WATER OR OTHER FLUID) 8) QUETIAPINE FUMARATE 25MG TAB TAKE THREE TABLE [...] CAPSULE BY EVANGELINA TH ONCE ACTIVE DAILY 13 Total Medications Allergies:Patient has answered NKA Previous Surgery/Hospitalization: N/A TO THE 'CC HEIGHT:215 lb [97.52 kg] ( 13:40) WEIGHT:67 in [170.2 cm] (11/02/2021 13:40) REVIEW OF SYSTEMS: DEFERRED BEING NON-CONTRI BUTORY TO THE CC & I HAVE REVIEWED THE PCP NOTES & PMH WELL. O: DERMATOLOGICAL: Exam reveals skin color to be WN L AND TEXT IS DRY. Temp is diminished warm to cool prox imal to distal. There is normal distribution of hair noted. Nails are thickened yellow-brown discolor ed and displaying flakiness, crumbling, sub-ungual debris and rubor in the affectednail grooves. The affected nails are 1-2-3-4-5 bilat AND NOT IN NEED OF CAR E THIS DATE. There are no superficial painful hyperkeratotic lesions noted at this time. There are no rashes, ulcers, indurations or nodules noted. VASCULAR: Exam reveals DT pu lses to be absent non-palpable bilateral & PT PULSES ARE +2 equal & symmetrical bilateral. CFT is <3 sec x 10. There are no superficial varices noted and there is no edema noted. MUSCULOSKELETAL: Exam reveal s muscle strength and tone to be equal & symmetrical bilaterally & WNL for an individual of this age and present physical-medical condition. There is pain free ROM at all joints distal to and including the ankle. there are no apparent bony abnormalities but he has a CAVUS FOOT TYPE AND REATES THAT HE TENDS TO RUN ON THE OUTSI DE OF HIS FEET DUE TO HEEL PAIN. THERE IS XI A LEFT SHOULDER DROP AND A BOWING OF THE LEFT LEG WITH KNEE INSTABILITY. NEUROLOGICAL: Exam reveals S/D, vibratory, light touch & proprioception sensations to be equal & sym metrical bilaterally & WNL for an individual of this age and present physical-medical status. Protect bhavani sensation utilizing a [place] l[place]g monofilament is 10/10 bilat eral. BIOMECHANICAL: Exam is deferred at this time due to the presence of pain OTHER THAN NOTED ABOVE A: Clinical Impression is painful PLANTAR FASCIITIS LEFT > RT P: Treatment consists of STS CASTING FOR CUSTOM ORT HOSES WELL DISPENSING A PAIR OF POWER STEP M 11-11 04/26 AND HE NOTES AN I MMEDIATE IMPROVEMENT UPON INITIAL WEIGHT BEARING COMPARED TO HIS FLIMSY FOOT BEDS CURRENTLY IN HIS SNEAKERS. PATIENT IS progres sing well after podiatric care this date and will be CONTACTED WHEN ORTHOSE ARRIVE. RTC=W/C Medication Reconciliation: PERFORMED TODAY - SE E BELOW. Outpatient: Has the patient been taking medications [...] whether with a VA or non-VA provider. /cyndi/ LARRY TRAORE DPM AIRLINE RADIO OPERATOR Signed: 11/06/2021 10:57
--- OUTSIDE RECORDS SUMMARY | 2022-06-12 20:03 | XMS_ITS | Encounter Summary ---
:1970 Author Organization Department [facility] rs Address [address] [place] [address] Support Name Relationship Address Phone ASHOK FINCH Unavailable [address] [facility] [phone] [place] [address] ASHOK FINCH Unavailable [address]3RD [place] [address] VIDA LEON Unavailable [address] [facility] [place] [address] Insurance Providers: All historical and current Section [...] Name to Policy Number Valencia EXPRESS PRESCRIPT [facility] Oct 23, [id number] JASMYN TTA, PATIENT SCRIPTS ION 2018 [id number] RAN ([id number]) EXPRESS PRES[employer] [facility] Oct 23, [id number] [phone] JASMYN TTA, PATIENT SCRIPTS ION 2018 [id number] RAN ([id number]) [facility] Jun 27, [id number] JASMYN TTA, PATIENT [facility] 2019 [id number] RAN OLIVEROS OF ORGAN[a]list games [facility] Oct 23, [id number] JASMYN TTA, PATIENT [facility] 2018 [id number] RAN OLIVEROS SULYL [employer] [facility] August 26, [id number] JASMYN TTA, PATIENT [facility] 2016 [id number] RAN OLIVEROS [facility] August 26, [id number] [phone] JASMYN TTA, PATIENT LUI DEDUCTIBL ATE 2016 [id number] RAN Goodman [facility] September 05, [id number] [phone] JASMYN TTA, PATIENT LUI [place] NWEAL 2008 [id number] RAN OLIVEROS OF [facility] Selected Encounter This section includes the information on record at [place] for the Encounter. Date/Time Encounter Type Encounter Description Reason Provider Source Oct 16, 2021 12:00 Outpatient Encounter EVENT (HISTORICAL) AM IHE Encounter Template Text not used by [place] Plan of Treatment: Future Appointments (+ 6 months) and Future Tests (+/- 45 days) The Plan of Treatment section includes future care activities for the patient from all [place] treatmentfacilities. This section includes future appointments and future orders which are active, pending orscheduled.Future Appointments This section includes appointments that were scheduled to occur 6 months from the date of the Encounter, up to a maximum of 20 appointments. The data comes from all [place] treatment facilities. Appointment Date/Time Appointment Type Appointment Facili ty Name Nov 02, 2021 01:30 PM AMBULATORY - MEDICINE [facility] Nov 06, 2021 10:00 AM AM[facility]ULATORY MEDICINE [facility] Nov 13, 2021 03:00 PM AMBULATORY - PS[facility]CHIATRY [place] Jan 19, 2022 02:00 PM AMBULATORY PSYCHIATRY [place] Mar 23, 2022 02:00 PM AMBULATORY PS[facility]CHIATRY [place] Social History: Smoking Status (Most current) and Tobacco Use (All prior to encounter date) This section includes the most current, and the historical, smoking and tobacco-related health factors from the [place] facility where the Encounter took place.Current Smoking Status This section includes the most current smoking, or tobacco-related health factor, from the [place] facility where the Encounter took place. Date/Time Current Smoking Status Comment Facility September 16, 2015 11:08 AM TOBACCO INPATIENT NO USE 30 [place] [facility] [place] [facility] Tobacco Use History This section includes a history of the smoking, or tobacco- related health factors, that were collected on or before the date of the Encounter. The data comes from the [place] facility where the Encounter took place. Date/Time Smoking Status/Tobacco Use Comment [facility] it Jan 01, 2015 06:56 PM TOBACCO INPATIENT NO USE 30 [facility] [place] [facility] September 14, 2013 02:47 PM TOBACCO INPATIENT NO USE 30 [facility] [place] [facility]
--- OUTSIDE RECORDS SUMMARY | 2022-06-12 20:03 | XMS_ITS | Encounter Summary ---
:1970 Author Organization Department [facility] rs Address [address] [place] [address] Support Name Relationship Address Phone ASHOK FINCH Unavailable [address] [place] [address] ASHOK FINCH Unavailable [address] [place] [address] CAMERA SYSTEMS ENGINEER, VIDA Unavailable [address] [facility] [place] [address] Insurance Providers: All historical and current Section [...] Name to Policy Number Valencia [facility] Oct 23, GICRXS1 [id number] JASMYN TTA, PATIENT SCRIPTS ION 2018 [id number] RAN ([id number]) [facility] Oct 23, GICRXS1 [id number] JASMYN TTA, PATIENT SCRIPTS ION 2018 [id number] RAN ([id number]) [employer] [facility] Jun 27, [id number] [id number] JASMYN TTA, PATIENT [facility] 2019 [id number] RAN OLIVEROS OF [facility]GAN[facility] Oct 23, [id number] JASMYN TTA, PATIENT [facility] 2018 [id number] RAN OLIVEROS SULLY [employer] [facility] August 26, [id number] JASMYN TTA, PATIENT [facility] 2017 [id number] RAN OLIVEROS [facility] August 26, [id number] [phone] JASMYN TTA, PATIENT [facility] DEDUCTIBL ATE 2016 [id number] RAN Goodman [facility] September 05, [id number] [phone] JASMYN TTA, PATIENT L[facility] 2008 [id number] RAN OLIVEROS OF [facility] Selected Encounter This section includes the information on record at OR for the Encounter. Date/Time Encounter Type Encounter Reason Provider Source Description Nov 02, 2021 OFFICE O/P EST PRIMARY ICD-10-CM I10 ORVILLE BRUCE 01:30 PM MOD 30-39 MIN CARE/MEDICINE Essential (primary) hypertension with Provider Comments: Essential (Primary) Hypertension IHE Encounter Template Text not used by VA Assessments - Encounter Diagnoses This section includes the primary and secondary diagnoses documented for the Encounter. Date/Time Primary/Secondary Diagnosis Name Provider Source Diagnosis Nov 02, 2021 PRIMARY Essential (primary) ORVILLE BRUCE [place] 02:35 PM hypertension Nov 02, 2021 SECONDARY Abnormal results of ORVILLE BRUCE IE 02:35 PM liver function studies Nov 02, 2021 SECONDARY Alcohol dependence, ORVILLE BRUCE [place] 02:35 PM uncomplicated Nov 02, 2021 SECONDARY Mixed hyperlipidemia ORVILLE BRUCE [facility] 02:35 PM Nov 02, 2021 SECONDARY Plantar fascial [place]CE[place] 02:35 PM fibromatosis Plan of Treatment: Future Appointments (+ 6 months) and Future Tests (+/- 45 days) The Plan of Treatment section includes future care activities for the patient from all OR treatmentfacilities. This section includes future appointments and future orders which are active, pending orscheduled.Future Appointments This section includes appointments that were scheduled to occur 6 months from the date of the Encounter, up to a maximum of 20 appointments. The data comes from all OR treatment facilities. Appointment Date/Time Appointment Type Appointment Facili ty Name Nov 06, 2021 10:00 AM [facility]UL[facility]ORY - [facility]ICINE [facility] Nov 13, 2021 03:00 PM [facility]IATRY [facility] Jan 19, 2022 02:00 PM [facility] Mar 23, 2022 02:00 PM [facility] May 04, 2022 01:00 PM [facility] Vital Signs: All taken on the encounter date This section contains inpatient and outpatient Vital Signs collected on the date of the Encounter. Date/Time Temperature Pulse Blood Respiratory SP02 Pain Height Weight Roberto dy Source Pressure Rate Mass Index Nov 02, 98.5 F 87 126/75 16 /min 97 % 1 67 in 215 lb 34 [facility] 2021 01:40 /min mm[Hg] [place] PM Social History: Smoking Status (Most current) and Tobacco Use (All prior to encounter date) This section includes the most current, and the historical, smoking and tobacco-related health factors from the OR facility where the Encounter took place.Current Smoking Status This section includes the most current smoking, or tobacco-related health factor, from the OR facility where the Encounter took place. Date/Time Current Smoking Status Comment Facility May 22, 2021 09:00 AM [facility] Tobacco Use History This section includes a history of the smoking, or tobacco- related health factors, that were collected on or before the date of the Encounter. The data comes from the [facility] where the Encounter took place. Date/Time Smoking Status/Tobacco Use Comment [facility] May 22, 2020 10:30 AM VA-TOBACCO NEVER USED [place] [place] Dec 14, 2018 03:55 PM VA-TOBACCO NEVER USED [place] [place] Dec 19, 2017 03:19 PM VA-TOBACCO NEVER USED [place] [place] Jun 07, 2017 03:02 PM LIFETIME NON-TOBACCO USER [facility] Jun 01, 2016 10:33 AM LIFETIME NON-TOBACCO USER [facility] May 29, 2015 02:35 PM LIFETIME NON-TOBACCO USER [facility] Nov 20, 2007 02:48 PM LIFETIME NON-TOBACCO USER [facility] Encounter Notes: All associated encounter notes This section contains the clinical notes associated to the Encounter. Date/Time Encounter Note(s) Provider Source Nov 02, 2021 02:09 PM PHYSICIAN NOTE: ORVILLE BRUCE LOCAL TITLE: MD BAILEY STANDARD TITLE: PHYSICIAN NOTE DATE OF NOTE: NOV 02, 2021@14:09 ENTRY DATE: NOV 02, 2021@14:09:56 AUTHOR: ORVILLE BRUCE EXP COSIGNER: URGENCY: STATUS: COMPLETED Patient Name: RAN FINCH VITALS: Patient temperature: 98.5 F [36.9 C] (11/02/2021 13:40) Blood pressure: 126/75 (11/02/2021 13:40) Patient height: 67 in [170.2 cm] (11/02/2021 13: 40) Patient weight: 215 lb [97.52 kg] (11/02/2021 13 :40) Patient BMI: BMI: 33.7 Patient pulse: 87 (11/02/2021 13:40) Patient respiration: 16 (11/02/2021 13:40) Pain Ratin (11/02/2021 13:40) Active VA Medications: Active Outpatient Medicat ions (including Supplies): Active Outpatient Medications Status 1) BUSPIRONE HCL [...] TAKE ONE TABLET BY MOUTH ONCE ACTIVE DAILY TO CONTROL BLOOD PRESSURE 6) PRAVASTATIN NA 40MG TAB TAKE ONE TABLET BY MO UTH ONCE ACTIVE DAILY FOR CHOLESTEROL 7) PSYLLIUM ORAL PWD TAKE 1 TEASPOONFUL BY MOUTH TWICE HOLD DAILY (MIX WITH AT LEAST 8OZ. OF WATER OR OTHER FLUID) 8) QUETIAPINE FUMARATE 25MG TAB TAKE THREE TABLE TS BY ACTIVE MOUTH AT BEDTIME -FOR MOOD Pending Outpatient Medications Status 1) DOCUSATE NA 100MG CAP TAKE ONE CAPSULE BY EVANGELINA TH TWICE PENDING DAILY NEEDED TO SOFTEN STOOL 2) LISINOPRIL 30MG TAB TAKE ONE TABLET BY MOUTH ONCE PENDING DAILY TO CONTROL BLOOD PRESSURE Active Non-VA Medications Status 1) Non-VA ASCORBIC ACID 500MG TAB 500MG BY MOUTH ONCE ACTIVE DAILY 2) Non-VA ASPIRIN 81MG EC TAB 81MG BY MOUTH ONCE DAILY ACTIVE 3) Non-VA COENZYME Q10 CAP/TAB BY MOUTH ONCE CHANEL LY ACTIVE 4) Non-VA TURMERIC CAP/TAB BY MOUTH ONCE DAILY A CTIVE 5) Non-VA VITAMIN B COMPLEX CAP 1 CAPSULE BY EVANGELINA ONCE ACTIVE DAILY 15 Total Medications Remote Medications: No Active Remote Medications for this patient Mr. Finch is a pt of Dr. Garcia seen for branden f/u. Active issues: 1. Htn: Continues lisinopril--and, as no ioana below, EtOH consumption decreased. BP today 126/75. Creatinine WNL. 2. Alcohol abuse: He is helen ng a serious effort. Keeps track of his drinking on his phone. Says he drank 3 days in a row last month, 8 - 12 beers each day. Followed by psychiatrist, Dr. Mario. 3. Hepatic steatosis: Likely some combination of fatty liver and alcohol. Recent u/s showed slightly coarsene d echotexture. Stiffness on elastography about 5.5-- below threshold for significant fibrosis . On last labs (7 mos ago) AST 39, ALT 60. 4. Obesity: About 2 y ago he lost 15 lbs. Has ma naged to keep it off. I would favor decreased beer consumption as the likely b asis. 5. Pain w/ defecation: This appears to b e a problem w/ hard stool. Relieved w/ stool softener. 6. Left foot pain: About 6 m os of pain in heel and intep of L foot. Worsened by distance running--which he does nearly daily. No pain on waking. No known trauma. Has a very mild version of a similar alina n in the right foot. Exam: Mildly anxious No JVD, submandibular adenopathy, Lungs clear to ascultation, air exchange normal Heart RRR and without murmurs No pedal edema slight tenderness in distal Left heel and instep . No mid-heel tenderness. No pain w/ toe or foot movement. Assessment/Plan: 1. Htn: Continue lisinopril. 2. Alcohol abuse: Encouraged him to keep working at it! Has support through psychiatry. 3. Hepatic steatosis: He takes multiple suppleme nts; but I told him that what will benefit his liver is alcohol abstention and continued wt loss... 4. Obesity: I imagine wt wou ld drop if he could get away from all beer. He runs daily, but, as noted below, will need to cut mery k on this for a few months to deal w/ ongoing foot pain. 5. Pain w/ defecation: Continue PRN stool soften ers. 6. Left foot pain: Dx. uncertain--the exam and e xacerbating factors are not clearly plantar fasciitis--although this is cert ainly possible. Instructed to stop running. Podiatry appt. entered. Follow-up in 6 Months Nursing is requested to enter appropriate yearly labs prior to next visit if these have not been done in the preceeding 6 mon ths. Follow-up Pos Alcohol : Patient's AUDIT-C score was greater than or equ al to 5; brief alcohol intervention is indicated. Shared concern that the patient may be drinking at unhealthy levels known to increase his/her risk of alcohol related hea lth problems. Specifically the following were reviewed: High blood pressure, liver disease The patient was advised/informed to drink withi n safe limits, which are no more than 2 drinks per day on average and no mo re than 4 drinks on any one day AND no more than 14 drinks per week. Will d iscuss again at next visit. Other Comment: already followed in Medication Reconciliation: Outpatient: Has the patient been [...] with a VA or non-VA provider. /cyndi/ ORVILLE BRUCE M.D., PH.D. STAFF PHYSICIAN Signed: 11/02/2021 14:35 Nov 02, 2021 01:34 PM PREVENTIVE MEDICINE NURSING NOTE: Catina BERNAL LOCAL TITLE: CLINICAL REMINDERS/NURSING CEASAR CORTÉS STANDARD TITLE: PREVENTIVE MEDICINE NURSING NOTE DATE OF NOTE: NOV 02, 2021@13:34 ENTRY DATE: NOV 02, 2021@13:34:16 AUTHOR: ANAILSA BERNAL EXP COSIGNER: URGENCY: STATUS: COMPLETED The will complete the advanced directive on his own. Pneumococcal Conjugate Vaccine (PCV15/PCV20): The patient declines to receive the recommended dose of pneumococcal conjugate vaccine. The Med Rec will be completed by PCP. Alcohol Use Screen (AUDIT-C): Alcohol Screen: SCREEN FOR ALCOHOL (AUDIT-C) An alcohol screening test (AUDIT-C) was positiv e (score=9). 1. How often did you have a drink containing al cohol in the past year? Two to three times per week 2. How many drinks containing alcohol did you h ave on a typical day when you were drinking in the past year? Seven to nine drinks 3. How often did you have six or more drinks on one occasion in the past year? Weekly The covid vaccination is not provided on site. /cyndi/ ANALISA BERNAL LPN LICENSED PRACTICAL NURSE Signed: 11/02/2021 13:39
--- OUTSIDE RECORDS SUMMARY | 2022-06-12 20:03 | XMS_ITS | Encounter Summary ---
:1970 Author Organization Department [facility] rs Address [address] [place] [address] Support Name Relationship Address Phone ASHOK FINCH Unavailable [address] [facility] [address] ASHOK FINCH Unavailable [address] [place] [address] STUFFING MACHINE OPERATOR, VIDA Unavailable [address] [place] [address] Insurance Providers: All historical and current Section [...] Name to Policy Number Valencia [facility] Oct 23, GICRXS1 [id number] JASMYN TTA, PATIENT SCRIPTS ION 2018 [id number] RAN ([id number]) [facility] Oct 23, GICRXS1 [id number] JASMYN TTA, PATIENT SCRIPTS ION 2018 [id number] RAN ([id number]) [employer] [facility] Jun 27, [id number] [phone] JASMYN TTA, PATIENT [facility] 2019 [id number] RAN OLIVEROS OF [employer] [facility] Oct 23, [id number] JASMYN TTA, PATIENT [facility] 2018 [id number] RAN OLIVEROS SULLY [email or web address] [facility] August 26, [id number] JASMYN TTA, PATIENT [facility] 2017 [id number] RAN OL[place]OS [facility] [employer] [facility] August 26, [id number] [phone] JASMYN TTA, PATIENT LUI DEDUCTIBL ATE 2016 001 [id number] RAN Goodman [facility] September 05, [id number] [phone] JASMYN TTA, PATIENT L[facility]WE[facility] 2008 [id number] R[facility] [facility] Selected Encounter This section includes the information on record at [place] for the Encounter. Date/Time Encounter Type Encounter Reason Provider Source Description Nov 13, 2021 OFFICE O/P EST MENTAL HEALTH ICD-10-CM STEPHEN CLARK 03:00 PM HI 40-54 MIN CLINIC - IND F43.12 N G Post-traumatic stress disorder, chronic with Provider Comments: Chronic post-traumatic stress disorder ([facility] [id number]) IHE Encounter Template Text not used by VA Assessments - Encounter Diagnoses This section includes the primary and secondary diagnoses documented for the Encounter. Date/Time Primary/Secondary Diagnosis Name Provider Source Diagnosis Nov 13, 2021 PRIMARY Post-traumatic THEA CLARK GLORIA Jiménez 06:41 PM stress disorder, G chronic Nov 13, 2021 SECONDARY Bipolar AMBERTHEA VIGNESH 06:41 PM disorder, G current episode depressed, moderate Plan of Treatment: Future Appointments (+ 6 months) and Future Tests (+/- 45 days) The Plan of Treatment section includes future care activities for the patient from all [place] treatmentfacilities. This section includes future appointments and future orders which are active, pending orscheduled.Future Appointments This section includes appointments that were scheduled to occur 6 months from the date of the Encounter, up to a maximum of 20 appointments. The data comes from all [place] treatment facilities. Appointment Date/Time Appointment Type Appointment Facili ty Name Jan 19, 2022 02:00 PM AMBULATORY - PS[place]CHIATRY [place] Mar 23, 2022 02:00 PM AMBULATORY - [facility]CHIATRY [place] May 04, 2022 01:00 PM AMBUL[facility]ORY - MEDICINE [place] Social History: Smoking Status (Most current) and Tobacco Use (All prior to encounter date) This section includes the most current, and the historical, smoking and tobacco-related health factors from the [place] facility where the Encounter took place.Current Smoking Status This section includes the most current smoking, or tobacco-related health factor, from the [place] facility where the Encounter took place. Date/Time Current Smoking Status Comment Facility May 22, 2021 09:00 AM VA-TOBACCO NEVER USED [place] [place] Tobacco Use History This section includes a history of the smoking, or tobacco- related health factors, that were collected on or before the date of the Encounter. The data comes from the [facility] where the Encounter took place. Date/Time Smoking Status/Tobacco Use Comment [facility] May 22, 2020 10:30 AM VA-TOBACCO NEVER USED [place] Dec 14, 2018 03:55 PM VA-TOBACCO NEVER USED [place] Dec 19, 2017 03:19 PM VA-TOBACCO NEVER USED [place] Jun 07, 2017 03:02 PM LIFETIME NON-TOBACCO USER [place] Jun 01, 2016 10:33 AM LIFETIME NON-TOBACCO USER [place] May 29, 2015 02:35 PM LIFETIME NON-TOBACCO USER [place] Nov 20, 2007 02:48 PM LIFETIME NON-TOBACCO USER [place] Encounter Notes: All associated encounter notes This section contains the clinical notes associated to the Encounter. Date/Time Encounter Note(s) Provider Source Nov 13, 2021 03:34 PM PSYCHIATRY NOTE: THEA CLARK LD LOCAL TITLE: PSYCHIATRY NOTE STANDARD TITLE: PSYCHIATRY NOTE DATE OF NOTE: NOV 13, 2021@15:34 ENTRY DATE: NOV 13, 2021@15:34:22 AUTHOR: THEA CLARK EXP COSIGNER: URGENCY: STATUS: COMPLETED PSYCHIATRY NOTE Has ADDENDA 40 minutes for encounter, including chart review , interview, charting Chart reviewed The patient presents as stable. He presents with usual mental status. Mood is reasonably stable. Again denies depressi on other than occasional mild symptoms. Denies elevated mood. PTSD symptoms fl uctuate. Overall anxiety is probably improved despite the patient stopping B uSpar several wks ago, he did not like the effect. Affect brightens appropriat kiera, full range, no lability. He denies SI and violent ideation. Denies recent dissociative experiences. Speech is normal. Denies AHs. Well organized tho ughts. No PI presented. No delusional content presented . Optimisitic. Cognitive exam grossly intact. Future oriented. Good grooming/hygiene. No slowing. Aft er another discussion about medication we again decided the patient was benefiting from the Sero quel and gabapentin for mood stability and anxiety respectively, he would lik e to continue the same medication. Again, the patient did not like the effect of BuSpar and stopped this several weeks ago. The patient continues to drink about 1/3 days of the week -which remains decreased compared with years ago. Patient denie d recent benzodiazepine use; denies cocaine use; denies other street drugs; d enies benadryl use Denies psych med side effects; [...] disord er, current episode depression (SNOMED CT 159316772) 9. Benign essential hypertension (SNOMED CT 120 1005) 10. Chronic post-traumatic stress disorder (SNOM ED CT 438914180) 11. Bursitis 12. Alcoholic hepatitis (SNOMED CT 399478093) 13. Pain in joint involving shoulder region 14. 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 The patient does [facility]. hold off on jha 9 referral -- as pt previously declined encourage psychotherapy at [facility] ; the patient reports he has not attended [facility] recently, but agrees to consider resuming there BuSpar discontinued because patient did not like the effect After another discussion, we decided to continue seroquel 75 mg qhs -- pt finds this dose effective and well tolerated, he does not want higher dose -- he fe els it helps bipolar depression/mood stability ; pt found higher dose too slowing After another discussion we decided to continue gabapentin 300 mg tid prn -- pt finds this dose helpful -- [...] changes his mind, and will need LFTs I again strongly advised pt against overuse [...] the medica tions may help decrease the risk/severityof substance abuse relapses) The side effect profile [...] follows blo od pressure, weights, lipids, glucose Return to clinic about 1 month to see Letha morse in and to see if the patient is willing to be adm itted for detox, return to clinic 2 months to see [...] VA (local) an d dispensed from another [place] or DoD facility (remote) as well as [...] whether with a VA or non-VA provider. MH AIMS Testing: AIMS (Mental Health Instrument) The patient was evaluated for symptoms of tardi ve dyskinesia using the AIMS. Total score for items 1-7: 0 /cyndi/ THEA CLARK MD STAFF PSYCHIATRIST Signed: 11/13/2021 18:41 11/13/2021 ADDENDUM STATUS: COMPLETED Return to clinic about 1 month to see Letha morse in and to see if the patient is willing to be admitted for de tox (the patient agreed to a follow-up appointment 1 month for this) /maryam CLARK MD STAFF PSYCHIATRIST Signed: 11/13/2021 18:43 Receipt Acknowledged By: 11/16/2021 08:11 /maryam SWAN Registered Nurse 12/24/2021 ADDENDUM STATUS: COMPLETED [place] cancelled appointmen t with me today. I left him a general VM message to please return my call. /maryam SWAN Registered Nurse Signed: 12/24/2021 13:15
--- OUTSIDE RECORDS SUMMARY | 2022-06-12 20:03 | XMS_ITS | Encounter Summary ---
:1970 Author Organization [facility] rs Address [address] [place] [address] Support Name Relationship Address Phone ASHOK FINCH Unavailable 102 [facility] [phone] [place] [address] ASHOK FINCH Unavailable [address] [place] [address] VIDA LEON Unavailable 19 [facility] [place] [address] Insurance Providers: All historical and current Section [...] Name to Policy Number Valencia [facility] Oct 23, [id number] [id number] JASMYN TTA, PATIENT SCRIP[facility] ION 2017 [id number] RAN ([id number]) [facility] Oct 23, GICRXS1 [id number] [phone] JASMYN TTA, PATIENT SCR[place] ION 2018 [id number] RAN ([id number]) [facility] Jun 27, [id number] JASMYN TTA, PATIENT [facility] 2019 [id number] RAN [place] OF [employer] [facility]NOTE 2] Oct 23, [id number] JASMYN TTA, PATIENT [facility] 2018 [id number] RAN [place] SULLY [employer] [facility] August 26, [id number] JASMYN TTA, PATIENT [facility] 2016 [id number] RAN [place] ON LICENSE OF [facility] August 26, [id number] [phone] JASMYN TTA, PATIENT [facility]CT[facility] 2016 001 [id number] 5 RAN Goodman [facility] September 05, [id number] [phone] JASMYN TTA, PATIENT [facility] [facility] 2008 [id number] RAN OLIVER[place] OF [facility] Selected Encounter This section includes the information on record at [place] for the Encounter. Date/Time Encounter Type Encounter Description Reason Provider Source Oct 02, 2021 11:19 Outpatient Encounter PRIMARY CARE/MEDICINE AM IHE Encounter Template Text not used by [place] Plan of Treatment: Future Appointments (+ 6 months) and Future Tests (+/- 45 days) The Plan of Treatment section includes future care activities for the patient from all [place] treatmentfacilities. This section includes future appointments and future orders which are active, pending orscheduled.Future Appointments This section includes appointments that were scheduled to occur 6 months from the date of the Encounter, up to a maximum of 20 appointments. The data comes from all [place] treatment facilities. Appointment Date/Time Appointment Type Appointment Facili ty Name Nov 02, 2021 01:30 PM AM[facility]ULATORY - [facility] [place] Nov 06, 2021 10:00 AM [facility] - [facility] [place] Nov 13, 2021 03:00 PM AMBUL[facility]ORY - [facility]RY [place] Jan 19, 2022 02:00 PM [facility]ORY [facility] [place] Mar 23, 2022 02:00 PM AMBULATORY [facility]CHI[facility]RY [place] Social History: Smoking Status (Most current) and Tobacco Use (All prior to encounter date) This section includes the most current, and the historical, smoking and tobacco-related health factors from the [place] facility where the Encounter took place.Current Smoking Status This section includes the most current smoking, or tobacco-related health factor, from the [place] facility where the Encounter took place. Date/Time Current Smoking Status Comment Facility September 16, 2015 11:08 AM TOBACCO INPATIENT NO USE 30 [place] [facility] [place] [facility] Tobacco Use History This section includes a history of the smoking, or tobacco- related health factors, that were collected on or before the date of the Encounter. The data comes from the [place] facility where the Encounter took place. Date/Time Smoking Status/Tobacco Use Comment [facility] it Jan 01, 2015 06:56 PM TOBACCO INPATIENT NO USE 30 [facility] [place] [facility] September 14, 2013 02:47 PM TOBACCO INPATIENT NO USE 30 [facility] [place] [facility] Encounter Notes: All associated encounter notes This section contains the clinical notes associated to the Encounter. Date/Time Encounter Note(s) Provider Source Oct 02, 2021 11:19 AM PRIMARY CARE TELEPHONE ENCOUNTER NOTE: AMY JOEL [facility] TITLE: TELEPHONE NOTE/PRIMARY CARE STANDARD TITLE: PRIMARY CARE TELEPHONE ENCOUNTER NOTE DATE OF NOTE: OCT 02, 2021@11:19 ENTRY DATE: OCT 02, 2021@11:19:16 AUTHOR: AMY GALLAGHER EXP COSIGNER: URGENCY: STATUS: COMPLETED Trim [employer] Burr Operator LVM for to ca ll back to make appointment with covering provider. /cyndi/ AMY DE LOS SANTOS Signed: 10/02/2021 11:19
--- OUTSIDE RECORDS SUMMARY | 2022-06-12 20:03 | XMS_ITS | Encounter Summary ---
:1970 Author Organization Department [facility] rs Address [address] [place] [address] Support Name Relationship Address Phone ASHOK FINCH Unavailable 102 [facility] [phone] [place] [address] ASHOK FINCH Unavailable [address] [address] VIDA LEON Unavailable 19 [facility] [place] [address] Insurance Providers: All historical and current Section [...] Name to Policy Number Valencia [facility] PRES[facility] Oct 23, [id number] [id number] JASMYN TTA, PATIENT SCRIP[place] ION 2017 [id number] RAN ([id number]) [facility] Oct 23, GICRXS1 [id number] [phone] JASMYN TTA, PATIENT SCRIP[place] ION 2018 [id number] RAN ([id number]) [facility] Jun 27, [id number] [phone] JASMYN TTA, PATIENT [facility] 2019 [id number] 5 RAN [place] OF [employer] [facility] Oct 23, [id number] [phone] JASMYN TTA, PATIENT [facility] 2018 [id number] 5 RAN [place] SULLY [employer] [facility] August 26, [id number] [id number] JASMYN TTA, PATIENT [facility] 2016 [id number] 5 RAN MEDELI [employer] [facility] August 26, [id number] [phone] JASMYN TTA, PATIENT L[facility] DEDUCTIBL AT[facility] 2016 001 [id number] [address] Goodman [facility] September 05, [id number] [phone] JASMYN TTA, PATIENT L[facility] [place] [facility] 2008 [id number] 5 RAN [place]IVER[place] OF [facility] Selected Encounter This section includes the information on record at [place] for the Encounter. Date/Time Encounter Type Encounter Description Reason Provider Source Oct 30, 2021 12:00 Outpatient Encounter EVENT (HISTORICAL) AM IHE Encounter Template Text not used by [place] Plan of Treatment: Future Appointments (+ 6 months) and Future Tests (+/- 45 days) The Plan of Treatment section includes future care activities for the patient from all [place] treatmentfacilities. This section includes future appointments and future orders which are active, pending orscheduled.Future Appointments This section includes appointments that were scheduled to occur 6 months from the date of the Encounter, up to a maximum of 20 appointments. The data comes from all [place] treatment facilities. Appointment Date/Time Appointment Type Appointment Facili ty Name Nov 02, 2021 01:30 PM AMBULATORY - MEDICINE [place] Nov 06, 2021 10:00 AM [facility]ORY [facility] [place] Nov 13, 2021 03:00 PM AMBUL[facility]ORY [place]IATRY [place] Jan 19, 2022 02:00 PM [facility] [place] Mar 23, 2022 02:00 PM AMBUL[facility]ORY [facility]RY [place] Social History: Smoking Status (Most current) and Tobacco Use (All prior to encounter date) This section includes the most current, and the historical, smoking and tobacco-related health factors from the [place] facility where the Encounter took place.Current Smoking Status This section includes the most current smoking, or tobacco-related health factor, from the [place] facility where the Encounter took place. Date/Time Current Smoking Status Comment Facility September 16, 2015 11:08 AM TOBACCO INPATIENT NO USE 30 [facility] [place] [facility] Tobacco Use History This section includes a history of the smoking, or tobacco- related health factors, that were collected on or before the date of the Encounter. The data comes from the [place] facility where the Encounter took place. Date/Time Smoking Status/Tobacco Use Comment [facility] it Jan 01, 2015 06:56 PM TOBACCO INPATIENT NO USE 30 [place] [facility] [place] [facility] September 14, 2013 02:47 PM TOBACCO INPATIENT NO USE 30 [place] [facility] [place] [facility]
--- OUTSIDE RECORDS SUMMARY | 2022-06-12 20:04 | XMS_ITS | Encounter Summary ---
:1970 Author Organization [facility] rs Address [address] [place] [address] Support Name Relationship Address Phone ASHOK FINCH Unavailable 102 [facility] [phone] [place] [address] ASHOK FINCH Unavailable [address] [address] VIDA LEON Unavailable 19 [facility] [place] [address] Insurance Providers: All historical and current Section [...] Name to Policy Number Valencia EXPRESS PRESCRIPT [facility] Oct 23, [id number] [id number] JSAMYN TTA, PATIENT SCRIPTS ION 2018 [id number] RAN ([id number]) EXPRESS PRES[facility] Oct 23, GICRXS1 [id number] [phone] JASMYN TTA, PATIENT SCRIPTS ION 2018 [id number] RAN ([id number]) [facility] Jun 27, [id number] [phone] JASMYN TTA, PATIENT [facility] 2019 [id number] 5 RAN [place] OF [employer] [facility] Oct 23, [id number] JASMYN TTA, PATIENT [facility] 2018 [id number] 5 RAN [place] SULLY [employer] [facility] August 26, [id number] [id number] JASMYN TTA, PATIENT [facility] 2016 [id number] 5 RAN OLIVER[place] [facility] [facility] August 26, [id number] [phone] JASMYN TTA, PATIENT LUI DEDUCTIBL ATE 2016 001 [id number] 5 RAN Goodman [facility] September 05, [id number] [phone] JASMYN TTA, PATIENT L[facility] [facility] 2008 [id number] 5 RAN [place] OF [facility] Selected Encounter This section includes the information on record at [place] for the Encounter. Date/Time Encounter Type Encounter Description Reason Provider Source Sep 24, 2021 10:56 Outpatient Encounter PRIMARY CARE/MEDICINE AM IHE Encounter [...] Date/Time Appointment Type Appointment Facili ty Name Sep 29, 2021 02:00 PM AMBULATORY - [facility]IATRY [place] Nov 02, 2021 01:30 PM AM[facility]ULATORY [facility]IC[facility] [place] Nov 06, 2021 10:00 AM AMBULATORY [facility]IC[facility] [place] Nov 13, 2021 03:00 PM AM[facility]ORY [facility] [place] Jan 19, 2022 02:00 PM AMBUL[facility]ORY [facility] [place] Mar 23, 2022 02:00 PM AMBULATORY [facility] [place] Social History: Smoking Status (Most current) and [...] took place. Date/Time Smoking Status/Tobacco Use Comment Facil ity Jan 01, 2015 06:56 PM TOBACCO INPATIENT NO USE 30 [facility] [place] [facility] September 14, 2013 02:47 PM TOBACCO INPATIENT NO USE 30 [facility] [place] [facility] Encounter Notes: All associated encounter notes This section contains the clinical notes associated to the Encounter. Date/Time Encounter Note(s) Provider Source Sep 24, 2021 10:56 AM PRIMARY CARE TELEPHONE ENCOUNTER NOTE: AMY JOEL [facility] TITLE: TELEPHONE NOTE/PRIMARY CARE STANDARD TITLE: PRIMARY CARE TELEPHONE ENCOUNTER NOTE DATE OF NOTE: SEP 24, 2021@10:56 ENTRY DATE: SEP 24, 2021@10:56:44 AUTHOR: AMY GALLAGHER COSIGNER: URGENCY: STATUS: COMPLETED TELEPHONE NOTE/PRIMARY CARE Has ADDENDA Enrollment Processor spoke with to cancel appo intment from 10/22/21, due to doctor is out. Enrollment Processor will call back to reschedule appointment. was concerned to have 1 refill left for Lisnopril. Please renew m edication for [place]. /cyndi/ AMY DE LOS SANTOS Signed: 09/24/2021 10:59 Receipt Acknowledged By: 09/24/2021 11:06 /cyndi/ yLnn Elizabeth RN Registered Nurse 09/24/2021 ADDENDUM STATUS: COMPLETED 90 day supply mailed on 08/21/2021, one refill r emains. Too early to renew. /cyndi/ Lynn Elizabeth RN Registered Nurse Signed: 09/24/2021 11:07
--- OUTSIDE RECORDS SUMMARY | 2022-06-12 20:04 | XMS_ITS | Encounter Summary ---
:1970 Author Organization Department [facility] rs Address [address] [place] [address] Support Name Relationship Address Phone ASHOK FINCH Unavailable 102 [facility] [place] [address] ASHOK FINCH Unavailable [address] [place] [address] FURRIER APPRENTICE, VIDA Unavailable 19 [place] [place] [address] Insurance Providers: All historical and current Section [...] Name to Policy Number Valencia EXPRESS PRESCRIPT [facility] Oct 23, [id number] [id number] JASMYN TTA, PATIENT SCR[place] ION 2018 [id number] RAN ([id number]) EXPRESS PRESCRIPT [facility] Oct 23, GICRXS1 [id number] JASMYN TTA, PATIENT SCRIPTS ION 2018 [id number] RAN ([id number]) [employer] [facility] Jun 27, [id number] [phone] JASMYN TTA, PATIENT [facility] 2019 201 [id number] 5 RAN [place] OF [employer] [facility] Oct 23, [id number] JASMYN TTA, PATIENT [facility] 2018 [id number] 5 RAN [place] SULLY [employer] [facility] August 26, [id number] JASMYN TTA, PATIENT [facility] 2017 [id number] 5 RAN VIRK [employer] [facility] August 26, [id number] [phone] JASMYN TTA, PATIENT L[facility] DEDUCTIBL ATE 2016 001 [id number] 5 RAN Goodman [facility]AN [facility] September 05, [id number] [phone] JASMYN TTA, PATIENT L[facility] [place] [facility] 2008 [id number] 5 RAN [place] OF [facility] Selected Encounter This section includes the information on record at [place] for the Encounter. Date/Time Encounter Type Encounter Reason Provider Source Description Sep 29, 2021 OFFICE O/P EST MENTAL HEALTH ICD-10-CM STEPHEN CLARK 02:00 PM HI 40-54 MIN CLINIC - IND F43.12 N G Post-traumatic stress disorder, chronic with Provider Comments: Chronic post-traumatic stress disorder ([facility] [id number]) IHE Encounter Template Text not used by [place] Assessments - Encounter Diagnoses This section includes the primary and secondary diagnoses documented for the Encounter. Date/Time Primary/Secondary Diagnosis Name Provider Source Diagnosis Sep 29, 2021 PRIMARY Post-traumatic THEA CLARK GLORIA Jiménez 07:00 PM stress disorder, G chronic Plan of [...] 02, 2021 01:30 PM AMBULATORY - MEDICINE [place] Nov 06, 2021 10:00 AM AMBULATORY - MEDICINE [place] Nov 13, 2021 03:00 PM AMBULATORY - PSYCHIATRY [place] Jan 19, 2022 02:00 PM AMBULATORY - PSYCHIATRY [place] Mar 23, 2022 02:00 PM AMBULATORY - PS[facility]CHIATRY [place] Social History: Smoking Status (Most current) and Tobacco Use (All prior to encounter date) This section includes the most current, and the historical, smoking and tobacco-related health factors from the [place] facility where the Encounter took place.Current Smoking Status This section includes the most current smoking, or tobacco-related health factor, from the [place] facility where the Encounter took place. Date/Time Current Smoking Status Comment Facility May 22, 2021 09:00 AM [facility]ACCO [facility] Tobacco Use History This section includes a history of the smoking, or tobacco- related health factors, that were collected on or before the date of the Encounter. The data comes from the [place] facility where the Encounter took place. Date/Time Smoking Status/Tobacco Use Comment [facility] May 22, 2020 10:30 AM VA-TOBACCO NEVER USED [place] Dec 14, 2018 03:55 PM VA-TOBACCO NEVER USED [place] Dec 19, 2017 03:19 PM VA-TOBACCO NEVER USED [place] Jun 07, 2017 03:02 PM LIFETIME NON-TOBACCO USER [place] Jun 01, 2016 10:33 AM LIFETIME NON-TOBACCO USER [place] May 29, 2015 02:35 PM LIFETIME NON-TOBACCO USER [place] Nov 20, 2007 02:48 PM LIFETIME NON-TOBACCO USER [place] Encounter Notes: All associated encounter notes This section contains the clinical notes associated to the Encounter. Date/Time Encounter Note(s) Provider Source Sep 29, 2021 08:50 PM MENTAL HEALTH TREATMENT PLAN NOTE: THEA CLARK [facility] TITLE: MH TREATMENT PLAN STANDARD TITLE: MENTAL HEALTH TREATMENT PLAN NOT E DATE OF NOTE: SEP 29, 2021@20:50 ENTRY DATE: SEP 29, 2021@20:50:11 AUTHOR: THEA CLARK EXP COSIGNER: URGENCY: STATUS: COMPLETED MH TREATMENT PLAN - Sep, @ 08:50PM Visit Date: Sep, @ 14:00 - SPO/VERONICA/SHITAL CHENG SOFTBALL PLAYER: THEA CLARK / KEISHA [facility] TEAM MEMBERS: THEA CLARK: PSYCHIATRIST MENTAL HEALTH DIAGNOSES AND RELEVANT MEDICAL CON DITIONS: Cocaine user (SCT 626206783) Alcohol dependence (SCT 86905632) Acute low back pain (SCT 710293154) 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) Hepatitis C antibody test positive (SCT 86586264 2) Liver function tests abnormal (SCT 151273366) Hyperlipidemia (SCT 88479393) Bipolar affective disorder, current episode depr ession (SCT 718221363) Benign essential hypertension (SCT 9752707) Chronic post-traumatic stress disorder (SCT 0251 73982) Alcoholic hepatitis ([facility] 983503167) TREATMENT PLAN: Problem: PTSD Goal: improved PTSD symptoms Objective: improved PTSD sx's as measured by pt report Intervention: psychopharm management and encour age [facility] Providers: Time Frame: PRN Treating Specialty: [facility] Renewal Date: 09/02/2021 Entered Treatment: 09/04/2019 @ 03:02PM Anticipated Discharge: None Actual Discharge: None Problem: Substance abuse Goal: decrease alcohol and other substance use Objective: abstinence from substance abuse as m easured by pt report and UDS Intervention: encourage WON grp, AA/NA Provider s: Time Frame: PRN Treating Specialty: [facility] Renewal Date: 09/02/2021 Entered Treatment: 09/04/2019 @ 03:02PM Anticipated Discharge: None Actual Discharge: None Problem: Bipolar disorder Goal: improved mood stability Objective: improved mood stability as measured by pt report Intervention: psychopharm mangement and encoura ge psychotherapy Providers: Time Frame: PRN Treating Specialty: [facility] Renewal Date: 09/02/2021 Entered Treatment: 09/04/2019 @ 03:02PM Anticipated Discharge: None Actual Discharge: None PATIENT PARTICIPATION IN TREATMENT PLANNING: MET WITH PROVIDER. /cyndi/ THEA CLARK MD STAFF PSYCHIATRIST Signed: 09/29/2021 20:50 Sep 29, 2021 02:48 PM PSYCHIATRY NOTE: THEA CLARK [facility] LOCAL TITLE: PSYCHIATRY NOTE STANDARD TITLE: PSYCHIATRY NOTE DATE OF NOTE: SEP 29, 2021@14:48 ENTRY DATE: SEP 29, 2021@14:48:45 AUTHOR: THEA CLARK EXP COSIGNER: URGENCY: STATUS: COMPLETED 40 minutes for encounter, including chart review , interview, charting Chart reviewed pt relatively stable. He again denies recent depression (other than oc casional mild symptoms), and denies elevated mood. PTSD symptoms and anxiety symptoms fluctuate, in particular report s some increase in anxiety. Affect brightens appropriately, full range, no lability . He denies SI and violent ideation. Denies recent diss ociative experiences. Speech is normal. Denies AHs. Well organized thoughts. No PI presented. No del usional content presented. Optimisitic. Cognitive exam grossly intact. Futu re oriented. Good grooming/hygiene. No slowing. After another disc ussion about medication we decided the patient was benefiting from the Sero quel and gabapentin for mood stability and anxiety respectively, he would lik e to continue the same medication, see below. But we decided to add BuS par for anxiety, see below. The patient continues to drink about 1/3 days of the week -which remains decreased compared with years ago. Rock dee does report using a small amount of Ativan which he brought over the Internet, I enc ouraged him to stop this, instructing him on the problems associated for h im with Ativan use; denies cocaine use; denies other street drugs; denies b enadryl use Denies psych med side effects; no daytime sedati on; reports mostly med compliant pt has some supports; pt's mother is main suppor t wt 218.6 lbs 03/2021 Active problems - Computerized Problem List is t he source for the followin. Cocaine user 2. Alcohol dependence 3. Acute low back pain 4. Hypnotic or anxiolytic abuse 5. Hepatitis C antibody test positive 6. Liver function tests abnormal 7. Hyperlipidemia 8. Bipolar affective disord er, current episode depression (SNOMED CT 676313937) 9. Benign essential hypertension (SNOMED CT 120 1005) 10. Chronic post-traumatic stress disorder (SN ED CT 743800219) 11. Bursitis 12. Alcoholic hepatitis (SNOMED CT 654145490) 13. Pain in joint involving shoulder region 14. Nevus, non-neoplastic Active Outpatient Medications (including Supplie s): Active Outpatient Medications Status 1) BISACODYL 5MG EC TAB TAKE TWO TABLETS BY MOUT H ACTIVE DIRECTED BY PROVIDER TAKE ALL TABLETS RIGHT BEF ORE STARTING BOWEL PREP. FOLLOW INSTRUCTIONS GIVEN BY OFFICE FOR TIMING. 2) CHOLECALCIF 10MCG (D3-400UNIT) TAB TAKE ONE T ABLET BY ACTIVE MOUTH ONCE DAILY FOR VITAMIN SUPPLEMENTATION 3) COLON ELECTROLYTE LAVAGE PWD FOR SOLN TAKE CO NTENTS ACTIVE OF BOTTLE BY MOUTH DIRECTED BY PROVIDER STAR TING AT 6PM THE NIGHT BEFORE YOUR PROCEDURE, DRINK 8 OUNCES [address] YOUR OWN PACE UNTIL RECTALS RUN CLEAR . DISSOLVE CONTENTS BEFORE DRINKING. 4) DOCUSATE NA 100MG CAP TAKE ONE CAPSULE BY EVANGELINA TH TWICE ACTIVE DAILY NEEDED TO SOFTEN STOOL 5) GABAPENTIN 300MG CAP TAKE ONE CAPSULE BY MOUT H THREE ACTIVE TIMES DAILY NEEDED FOR ANXIETY 6) LISINOPRIL 30MG TAB TAKE ONE TABLET BY MOUTH ONCE ACTIVE DAILY TO CONTROL BLOOD PRESSURE 7) PRAVASTATIN NA 40MG TAB TAKE ONE TABLET BY MO UTH ONCE ACTIVE DAILY FOR CHOLESTEROL 8) PSYLLIUM ORAL PWD TAKE 1 TEASPOONFUL BY MOUTH TWICE HOLD DAILY (MIX WITH AT LEAST 8OZ. OF WATER OR OTHER FLUID) 9) QUETIAPINE FUMARATE 25MG TAB TAKE THREE TABLE [...] CAPSULE BY EVANGELINA TH ONCE ACTIVE DAILY 14 Total Medications PAST PSYCH MED HX: h/o [...] helpful enough lamictal -- felt more irritable? IMP: dsm-5 PTSD -- 100% sc -- [...] again offered pt WON IOP -- but decl deandre this; Encourage AA and get sponsor . Encourge our WON grp. I also reviewed the dangers associated with the Ativan use, I instructed him to discontinue this. The patient states the Ativan use is very little. hold off on jha 9 referral -- as pt previously declined encourage psychotherapy at [facility] ; the patient reports he has not attended [facility] recently, but agrees to consider resuming there The patient would like another trial of BuSpar s tarting low-dose 5 mg twice daily for anxiety. He will call me if he wants t o titrate this between appointments.I reviewed the medication i nstructions/plan, side effect profile, and treatment expectations with the patient. He discus sed this with me and demonstrated good understanding. After another discussion, we decided to continue [...] that we would discuss this again at the next appointment. The discussion with patient about treatments inc [...] weights, lipids, glucose Return to clinic about 6 wee ks to see me for check in; (and [...] [facility] (local) an d dispensed from another [place] or [facility] facility (remote) as well as inpatien t [...] whether with a VA or non-VA provider. AIMS Testing: AIMS (Mental Health Instrument) The patient was evaluated for symptoms of tardi ve dyskinesia using the AIMS. Total score for items 1-7: 0 /es/ THEA CLARK MD STAFF PSYCHIATRIST Signed: 09/29/2021 19:00
--- OUTSIDE RECORDS SUMMARY | 2022-06-12 20:04 | XMS_ITS | Encounter Summary ---
:1970 Author Organization [facility] rs Address [address] [place] [address] Support Name Relationship Address Phone ASHOK FINCH Unavailable [address] [facility] [phone] [place] [address] ASHOK FINCH Unavailable [address];3RD FLOOR ( [phone] [place] [address] VIDA LEON Unavailable [address] [facility] [place] [address] Insurance Providers: All historical and current Section [...] Name to Policy Number Valencia [facility] Oct 23, GICRXS1 [id number] JASMYN TTA, PATIENT SCRIPTS ION 2017 [id number] RAN ([id number]) [facility] Oct 23, GICRXS1 [id number] [phone] JASMYN TTA, PATIENT SCRIPTS ION 2018 [id number] RAN ([id number]) [facility] Jun 27, [id number] [phone] JASMYN TTA, PATIENT [facility] 2019 [id number] RAN CE OF [employer] [facility] Oct 23, [id number] [id number] JASMYN TTA, PATIENT [facility] 2018 [id number] R[address] [place] SULLY [employer] [facility] August 26, [id number] [phone] JASMYN TTA, PATIENT [facility] 2017 [id number] RAN VIRK [facility] August 26, [id number] [phone] JASMYN TTA, PATIENT LUI DEDUCTIBL ATE 2016 [id number] 5 RAN Goodman [facility] September 05, [id number] [phone] JASMYN TTA, PATIENT L[facility] [place] [facility] 2008 [id number] RAN OLIVER[place] OF [facility] Selected Encounter This section includes the information on record at [place] for the Encounter. Date/Time Encounter Type Encounter Description Reason Provider Source Oct 02, 2021 11:35 Outpatient Encounter TELEPHONE TRIAGE AM IHE Encounter Template Text not used by [place] Plan of Treatment: Future Appointments (+ 6 months) and Future Tests (+/- 45 days) The Plan of Treatment section includes future care activities for the patient [facility] all [place] [facility] This section includes future appointments and future orders which are active, pending orscheduled.Future Appointments This section includes appointments that were scheduled to occur 6 months from the date of the Encounter, up to a maximum of 20 appointments. The data comes from all [place] treatment facilities. Appointment Date/Time Appointment Type Appointment Facili ty Name Nov 02, 2021 01:30 PM AMBULATORY - MEDICINE [facility] Nov 06, 2021 10:00 AM [facility]BULATORY MEDICINE [facility] Nov 13, 2021 03:00 PM AMB[facility]ATORY PSYCHIATRY [facility] Jan 19, 2022 02:00 PM AM[facility]ORY [facility]CHI[facility]RY [facility] Mar 23, 2022 02:00 PM AMB[facility]ATORY [facility]CHIATRY [facility] Social History: Smoking Status (Most current) and Tobacco Use (All prior to encounter date) This section includes the most current, and the historical, smoking and tobacco-related health factors from the PR facility where the Encounter took place.Current Smoking Status This section includes the most current smoking, or tobacco-related health factor, from the PR facility where the Encounter took place. Date/Time Current Smoking Status Comment Facility September 16, 2015 11:08 AM TOBACCO INPATIENT NO USE [facility] [place] [facility] Tobacco Use History This section includes a history of the smoking, or tobacco- related health factors, that were collected on or before the date of the Encounter. The data comes from the PR facility where the Encounter took place. Date/Time Smoking Status/Tobacco Use Comment Facil it Jan 01, 2015 06:56 PM TOBACCO INPATIENT NO USE 30 [facility] [place] [facility] September 14, 2013 02:47 PM TOBACCO INPATIENT NO USE 30 [facility] [place] [facility] Encounter Notes: All associated encounter notes This section contains the clinical notes associated to the Encounter. Date/Time Encounter Note(s) Provider Source Oct 02, 2021 11:35 AM TELEPHONE ENCOUNTER NOTE: NICKOLAS JUDGE [facility] LOCAL TITLE: VISN 1 CCC ACTION REQUIRED [place] [facility] STANDARD TITLE: TELEPHONE ENCOUNTER NOTE DATE OF NOTE: OCT 02, 2021@11:35:33 ENTRY DATE: OCT 02, 2021@11:38:58 AUTHOR: NICKOLAS JUDGE EXP COSIGNER: URGENCY: STATUS: COMPLETED The patient, RAN FINCH ([id number] ) called the call center. The following identifiers were used to verify th is patient: . SSN. Contact Type of call: SCHEDULING. Caller Response: ADM CALL RESOLVED Caller Area: [facility] PCMM [facility] ([id number]) MH: [facility] ([facility]) Psychiatrist THEA CLARK [facility] ([id number]) PACT: SO PACT 5 (Focus: Primary Care Only) Primary Care Provider: CHUCK JAMES General Worker: KIM MANUEL Clinical Associate: GUILLAUME CHILEL Director Drug: AMY GALLAGHER PHONE: [phone] Surrogate General Worker: GRACIELA ACOSTA [id number] Clinical POC: General Worker KIM MANUEL Administrative POC: Director Drug AMY GALLAGHER PHONE:[phone] Author: NICKOLAS JUDGE Comments: Vet returning call to schedule Pact appt. Evaluation/Management Code: HC PRO PHONE CALL 5- 10 MIN ([phone]). Starting at: 10/02/2021 @ 11:35:33 AM Ending at: 10/02/2021 @ 11:37:38 AM Length: 2 minutes. Chief Complaint: Not applicable to call. Class Code: Other specified counseling. Patient's Email Address: [email or web address]/ NICKOLAS JUDGE ADVANCED CANTEEN OPERATOR Signed: 10/02/2021 11:38 Receipt Acknowledged By: * AWAITING SIGNATURE * AMY GALLAGHER
--- OUTSIDE RECORDS SUMMARY | 2022-06-12 20:05 | XMS_ITS | Encounter Summary ---
:1970 Author Organization [facility] rs Address [address] [place] [address] Support Name Relationship Address Phone ASHOK FINCH Unavailable [address] [place] [address] ASHOK FINCH Unavailable [address];3RD FLOOR ( [phone] [place] [address] VIDA LEON Unavailable [address] [place] [address] Insurance Providers: All historical and current Section [...] Name to Policy Number Valencia [facility] Oct 23, GICRXS1 [id number] JASMYN TTA, PATIENT SCRIPTS ION 2017 [id number] RAN ([id number]) [facility] Oct 23, GICRXS1 [id number] JASMYN TTA, PATIENT SCRIPTS ION 2018 [id number] RAN ([id number]) [facility] Jun 27, [id number] [phone] JASMYN TTA, PATIENT [facility] 2019 [id number] 5 RAN [place] OF [employer] [facility] Oct 23, [id number] [phone] JASMYN TTA, PATIENT [facility] 2018 [id number] 5 RAN VIRK FIT[employer]ST [facility] August 26, [id number] [phone] JASMYN TTA, PATIENT [facility] OTHER 2017 [id number] 5 RAN VIRK [facility] August 26, [id number] [phone] JASMYN TTA, PATIENT LUI DEDUCTIBL ATE 2016 001 [id number] 5 RAN Goodman [facility] September 05, [id number] [phone] JASMYN TTA, PATIENT LUI [place] NWEAL 2008 [id number] 5 RAN [place] OF [facility] Selected Encounter This section includes the information on record at [place] for the Encounter. Date/Time Encounter Type Encounter Description Reason Provider Source Aug 21, 2021 11:45 Outpatient Encounter PRIMARY CARE/MEDICINE AM IHE Encounter Template Text not used by [place] Plan of Treatment: Future Appointments (+ 6 months) and Future Tests (+/- 45 days) The Plan of Treatment section includes future care activities for the patient from all [place] treatmentfacilities. This section includes future appointments and future orders which are active, pending orscheduled.Future Appointments This section includes appointments that were scheduled to occur 6 months from the date of the Encounter, up to a maximum of 20 appointments. The data comes from all [place] treatment [facility]. Appointment Date/Time Appointment Type Appointment Facili ty Name Sep 29, 2021 02:00 PM AMBULATORY PSYCHIATRY [facility] Nov 02, 2021 01:30 PM [facility]ORY MEDICINE [facility] Nov 06, 2021 10:00 AM [facility]ORY [facility] Nov 13, 2021 03:00 PM AMBUL[facility]ORY [facility]CHI[facility]RY [facility] Jan 19, 2022 02:00 PM AMBULATORY PS[facility]CHIATRY [facility] Active, Pending, and Scheduled Orders This section includes a listing of several types of active, pending, and scheduled orders, including clinic medications orders, diagnostic test orders, procedure orders and consult orders; where the start date of the order is 45 days before the date of the Encounter or 45 days after the date of the Encounter. The data comes from all [place] treatment [facility]. Test Date/Time Test Type Test Details Facility Name Jul 21, 2021 12:00 AM Laboratory - Chemistry ALCOHOL, ETHYL URIN E PANEL [facility] Order URINE (DRUG) Jul 21, 2021 12:00 AM Laboratory - Chemistry LIVER FUNCTION BLOO D [facility] Order (SST-SERUM) Jul 21, 2021 12:00 AM Laboratory - Chemistry AMPHETAMINES SCREEN PANEL [facility] Order URINE (DRUG) Jul 21, 2021 12:00 AM Laboratory - Chemistry FENTANYL SCREEN MARTIN EL URINE [facility] Order (DRUG) SP Jul 21, 2021 12:00 AM Laboratory - Chemistry BUPRENORPHINE SCREE N PANEL [facility] URINE (DRUG) Jul 21, 2021 12:00 AM Laboratory - Chemistry BENZODIAZEPINES SCR EEN [facility] PANEL URINE (DRUG) Jul 21, 2021 12:00 AM Laboratory - Chemistry CANNABINOIDS SCREEN PANEL [facility] URINE (DRUG) Jul 21, 2021 12:00 AM Laboratory - Chemistry COCAINE SCREEN PANE L URINE [facility] Order (DRUG) Jul 21, 2021 12:00 AM Laboratory - Chemistry ETG SCREEN (wx) URI NE [facility] Order (DRUG) Jul 21, 2021 12:00 AM Laboratory - Chemistry METHADONE SCREEN UR INE SP [facility] Jul 21, 2021 12:00 AM Laboratory - Chemistry OPIATES SCREEN PANE L URINE [facility] Order (DRUG) Jul 21, 2021 12:00 AM Laboratory - Chemistry OXYCODONE SCREEN PA RUDY [facility] URINE (DRUG) SP Social History: Smoking Status (Most current) and Tobacco Use (All prior to encounter date) This section includes the most current, and the historical, smoking and tobacco-related health factors from the [place] facility where the Encounter took place.Current Smoking Status This section includes the most current smoking, or tobacco-related health factor, from the [place] facility where the Encounter took place. Date/Time Current Smoking Status Comment Facility May 22, 2021 09:00 AM [facility] Tobacco Use History This section includes a history of the smoking, or tobacco- related health factors, that were collected on or before the date of the Encounter. The data comes from the [place] facility where the Encounter took place. Date/Time Smoking Status/Tobacco Use Comment Moose freeman May 22, 2020 10:30 AM VA-TOBACCO NEVER USED [facility] [place] Dec 14, 2018 03:55 PM VA-TOBACCO NEVER USED [facility] [place] Dec 19, 2017 03:19 PM VA-TOBACCO NEVER USED [facility] [place] Jun 07, 2017 03:02 PM LIFETIME NON-TOBACCO USER [facility] Jun 01, 2016 10:33 AM LIFETIME NON-TOBACCO USER [facility] May 29, 2015 02:35 PM LIFETIME NON-TOBACCO USER [facility] Nov 20, 2007 02:48 PM LIFETIME NON-TOBACCO USER [facility]
--- OUTSIDE RECORDS SUMMARY | 2022-06-12 20:05 | XMS_ITS | Encounter Summary ---
:1970 Author Organization Department [facility] rs Address [address] [place] [address] Support Name Relationship Address Phone ASHOK FINCH Unavailable 102 [facility] [phone] [place] [address] ASHOK FINCH Unavailable [address];3RD [place] [address] AIR PUMPER, VIDA Unavailable [address] [facility] [place] [address] Insurance Providers: All historical and current Section [...] Name to Policy Number Valencia EXPRESS PRESCRIPT [facility] Oct 23, GICRXS1 [id number] JASMYN TTA, PATIENT SCRIPTS ION 2018 [id number] RAN ([id number]) EXPRESS PRES[facility] Oct 23, GICRXS1 [id number] JASMYN TTA, PATIENT SCRIPTS ION 2018 [id number] RAN ([id number]) [employer] [facility] Jun 27, [id number] [phone] JASMNY TTA, PATIENT [facility] 2019 [id number] 5 RAN [place] OF [facility] Oct 23, [id number] [id number] JASMYN TTA, PATIENT [facility] 2018 [id number] 5 RAN [place] SULLY Valued Relationships [facility] August 26, [id number] JASMYN TTA, PATIENT [facility] 2017 [id number] [address] [facility] August 26, [id number] [phone] JASMYN TTA, PATIENT LUI DEDUCTIBL ATE 2016 001 [id number] 5 RAN Goodman [facility] September 05, [id number] [phone] JASMYN TTA, PATIENT LUI [place] NWEAL 2008 [id number] RAN OLIVER[place] OF [facility] Selected Encounter This section includes the information on record at [place] for the Encounter. Date/Time Encounter Type Encounter Reason Provider Source Description Jul 21, 2021 OFFICE O/P EST MENTAL HEALTH ICD-10-CM STEPHEN CLARK 02:30 PM HI 40-54 MIN CLINIC - IND F43.12 N G Post-traumatic stress disorder, chronic with Provider Comments: Chronic post-traumatic stress disorder ([facility] [id number]) IHE Encounter Template Text not used by [facility] Assessments - Encounter Diagnoses This section includes the primary and secondary diagnoses documented for the Encounter. Date/Time Primary/Secondary Diagnosis Name Provider Source Diagnosis Jul 21, 2021 PRIMARY Post-traumatic THEA CLARKBUTCH Jiménez 03:48 PM stress disorder, G chronic Jul 21, 2021 SECONDARY Bipolar THEA CLARK 03:48 PM disorder, G current episode depressed, moderate Plan of Treatment: Future Appointments (+ 6 months) and Future Tests (+/- 45 days) The Plan of Treatment section includes future care activities for the patient from all [place] treatmentfacilities. This section includes future appointments and future orders which are active, pending orscheduled.Future Appointments This section includes appointments that were scheduled to occur 6 months from the date of the Encounter, up to a maximum of 20 appointments. The data comes from all [place] treatment facilities. Appointment Date/Time Appointment Type Appointment Facili ty Name Sep 29, 2021 02:00 PM AMBULATORY - PS[facility]CHIATRY [place] Nov 02, 2021 01:30 PM AMBULATORY - MEDICINE [place] Nov 06, 2021 10:00 AM AMBULATORY - MEDICINE [place] Nov 13, 2021 03:00 PM AMBULATORY - [facility]CHIATRY [place] Jan 19, 2022 02:00 PM AMBULATORY - [facility]CHIATRY [place] Active, Pending, and Scheduled Orders This section includes a listing of several types of active, pending, and scheduled orders, including clinic medications orders, diagnostic test orders, procedure orders and consult orders; where the start date of the order is 45 days before the date of the Encounter or 45 days after the date of the Encounter. The data comes from all [place] treatment [facility]. Test Date/Time Test Type Test Details Facility Name Jul 21, 2021 12:00 AM Laboratory - Chemistry LIVER FUNCTION BLOO D [place] Order (SST-SERUM) Jul 21, 2021 12:00 AM Laboratory - Chemistry ALCOHOL, ETHYL URIN E PANEL [place] Order URINE (DRUG) Jul 21, 2021 12:00 AM Laboratory - Chemistry AMPHETAMINES SCREEN PANEL [facility] URINE (DRUG) Jul 21, 2021 12:00 AM Laboratory - Chemistry FENTANYL SCREEN MARTIN EL URINE [place] Order (DRUG) Jul 21, 2021 12:00 AM Laboratory - Chemistry BENZODIAZEPINES SCR EEN [facility] PANEL URINE (DRUG) Jul 21, 2021 12:00 AM Laboratory - Chemistry BUPRENORPHINE SCREE N PANEL [facility] URINE (DRUG) Jul 21, 2021 12:00 AM Laboratory - Chemistry CANNABINOIDS SCREEN PANEL [facility] URINE (DRUG) Jul 21, 2021 12:00 AM Laboratory - Chemistry COCAINE SCREEN PANE L URINE [place] Order (DRUG) Jul 21, 2021 12:00 AM Laboratory - Chemistry ETG SCREEN (wx) URI NE [place] Order (DRUG) Jul 21, 2021 12:00 AM Laboratory - Chemistry METHADONE SCREEN UR INE SP [facility] Jul 21, 2021 12:00 AM Laboratory - Chemistry OXYCODONE SCREEN PA RUDY [place] Order URINE (DRUG) Jul 21, 2021 12:00 AM Laboratory - Chemistry OPIATES SCREEN PANE L URINE [place] Order (DRUG) Social History: Smoking Status (Most current) and Tobacco Use (All prior to encounter date) This section includes the most current, and the historical, smoking and tobacco-related health factors from the [place] facility where the Encounter took place.Current Smoking Status This section includes the most current smoking, or tobacco-related health factor, from the [place] facility where the Encounter took place. Date/Time Current Smoking Status Comment Facility May 22, 2021 09:00 AM [place]-TOBACCO NEVER USED [facility] Tobacco Use History This section includes a history of the smoking, or tobacco- related health factors, that were collected on or before the date of the Encounter. The data comes from the [place] facility where the Encounter took place. Date/Time Smoking Status/Tobacco Use Comment Moose freemanangelina May 22, 2020 10:30 AM VA-TOBACCO NEVER USED [facility] Dec 14, 2018 03:55 PM VA-TOBACCO NEVER USED [facility] Dec 19, 2017 03:19 PM VA-TOBACCO NEVER USED [facility] Jun 07, 2017 03:02 PM LIFETIME NON-TOBACCO USER [place] Jun 01, 2016 10:33 AM LIFETIME NON-TOBACCO USER [place] May 29, 2015 02:35 PM LIFETIME NON-TOBACCO USER [place] Nov 20, 2007 02:48 PM LIFETIME NON-TOBACCO USER [place] Encounter Notes: All associated encounter notes This section contains the clinical notes associated to the Encounter. Date/Time Encounter Note(s) Provider Source Jul 21, 2021 03:00 PM PSYCHIATRY NOTE: THEA CLARK LOCAL TITLE: PSYCHIATRY NOTE STANDARD TITLE: PSYCHIATRY NOTE DATE OF NOTE: JUL 21, 2021@15:00 ENTRY DATE: JUL 21, 2021@15:00:17 AUTHOR: THEA CLARK EXP COSIGNER: URGENCY: STATUS: COMPLETED PSYCHIATRY NOTE Has ADDENDA 40 minutes for encounter, including chart review , interview, charting Chart reviewed Again, patient presents as relatively stable. He again denies recent depression (other than oc casional mild symptoms), and denies elevated mood. PTSD symptoms and anxiety symptoms improved. Affect brightens appropriately, full range, no lability [...] e to continue the same medication, see below The patient continues to drink about 1/3 days of the week -which remains decreased compared with years ago. He again roderick es xanax or other benzodiazepine for long time; den ies cocaine use; denies other street drugs; denies [...] disord er, current episode depression (SNOMED CT 081362835) 9. Benign essential hypertension (SNOMED CT 458 9321) 10. Chronic post-traumatic stress disorder (SN ED CT 299848692) 11. Bursitis 12. Alcoholic hepatitis (SNOMED CT 977724003) 13. 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 Encourge our [facility] g rp hold off on jha 9 referral -- as pt previously declined encourage psychotherapy at [facility] [place]; the patient reports he has not attended [facility] recently, but agrees to consider resuming [...] for AUD; again, previousl y declined antabuse; but he may be interested in naltrexone , he agreed to return to have LFTs done. We'll order this. I will call the pat júnior after he gets the LFTs drawn. I again strongly advised pt against overuse [...] weights, lipids, glucose Return to clinic about 2 mo to see me for check in; (and pt is good re using open access for f/u if needed) Depression Screening: Perform PHQ-2 A PHQ-2 screen was performed. The score was 1 w hich is a negative screen for depression. Over the past two weeks, how often have you bee n bothered by the following problems? 1. Little interest or pleasure in doing things Not at all 2. Feeling down, depressed, or hopeless Several days Medication Reconciliation: Outpatient: Has the patient been taking medications as docu mented in the EMLR? YES: The patient has been taking medications as documented in the EMLR. Essential Medication List for Review used to co mplete this medication reconciliation. INCLUDED IN THIS LIST: Alphabetical list of act bhavani outpatient prescriptions dispensed from this [facility] (local) an d dispensed from another [place] or [facility] facility (remote) as well as inpatien t [...] /cyndi/ THEA CLARK MD STAFF PSYCHIATRIST Signed: 07/21/2021 15:38 Receipt Acknowledged By: 07/21/2021 15:47 /cyndi/ AUREA MADDEN ADVANCED SPREAD CUTTER 07/21/2021 15:45 /es/ Gita Art ADVANCED SPREAD CUTTER 07/21/2021 ADDENDUM STATUS: COMPLETED Also add UDS to patient's labs /es/ THEA CLARK MD STAFF PSYCHIATRIST Signed: 07/21/2021 15:40
--- OUTSIDE RECORDS SUMMARY | 2022-06-12 20:05 | XMS_ITS | Encounter Summary ---
:1970 Author Organization [facility] rs Address [address] [place] [address] Support Name Relationship Address Phone ASHOK FINCH Unavailable 102 [facility] [phone] [place] [phone] ASHOK FINCH Unavailable [address] [place] [address] VIDA LEON Unavailable 19 [facility] [place] [address] Insurance Providers: All historical and current Section [...] Name to Policy Number Valencia [facility] Oct 23, GICRXS1 [id number] JASMYN TTA, PATIENT SCRIPTS ION 2017 [id number] RAN ([id number]) [facility] Oct 23, GICRXS1 [id number] [phone] JASMYN TTA, PATIENT SCRIPTS ION 2018 [id number] RAN ([id number]) [facility] Jun 27, [id number] JASMYN TTA, PATIENT [facility] 2019 [id number] R[place] OF [employer] [facility] Oct 23, [id number] JASMYN TTA, PATIENT [facility] 2018 [id number] R[place] SULLY [email or web address] [facility] August 26, [id number] JASMYN TTA, PATIENT [facility] 2016 [id number] RAN [place] [facility] [employer] [facility] August 26, [id number] [phone] JASMYN TTA, PATIENT LUI DEDUCTIBL ATE 2016 001 [id number] 5 RAN Goodman [facility] September 05, [id number] [phone] JASMYN TTA, PATIENT LUI [place] N[facility]AL 2008 [id number] RAN [place] OF [facility] Selected Encounter This section includes the information on record at [place] for the Encounter. Date/Time Encounter Type Encounter Description Reason Provider Source Aug 21, 2021 11:47 Outpatient Encounter PRIMARY CARE/MEDICINE AM IHE Encounter Template Text not used by [place] Plan of Treatment: Future Appointments (+ 6 months) and Future Tests (+/- 45 days) The Plan of Treatment section includes future care activities for the patient from all [place] treatmentfacilities. This section includes future appointments and future orders which are active, pending orscheduled.Future Appointments This section includes appointments that were scheduled to occur 6 months from the date of the Encounter, up to a maximum of 20 appointments. The data comes from all [place] treatment [facility]. Appointment Date/Time Appointment Type Appointment Facili ty Name Sep 29, 2021 02:00 PM AMBULATORY - PSYCHIATRY [place] Nov 02, 2021 01:30 PM AMBULATORY MEDICINE [place] Nov 06, 2021 10:00 AM AMBULATORY MEDICINE [place] Nov 13, 2021 03:00 PM AMBULATORY - PSYCHIATRY [place] Jan 19, 2022 02:00 PM [facility] [place] Active, Pending, and Scheduled Orders This section includes a listing of several types of active, pending, and scheduled orders, including clinic medications orders, diagnostic test orders, procedure orders and consult orders; where the start date of the order is 45 days before the date of the Encounter or 45 days after the date of the Encounter. The data comes from all [place] treatment [facility]. Test Date/Time Test Type Test Details Facility Name Jul 21, 2021 12:00 AM Laboratory - Chemistry ALCOHOL, ETHYL URIN E PANEL [place] Order URINE (DRUG) SP Jul 21, 2021 12:00 AM Laboratory - Chemistry AMPHETAMINES SCREEN PANEL [facility] URINE (DRUG) SP Jul 21, 2021 12:00 AM Laboratory - Chemistry FENTANYL SCREEN MARTIN EL URINE [place] Order (DRUG) SP Jul 21, 2021 12:00 AM Laboratory - Chemistry LIVER FUNCTION BLOO D [place] Order (SST-SERUM) Jul 21, 2021 12:00 AM Laboratory - Chemistry BENZODIAZEPINES SCR EEN [facility] PANEL URINE (DRUG) Jul 21, 2021 12:00 AM Laboratory - Chemistry BUPRENORPHINE SCREE N PANEL [facility] URINE (DRUG) Jul 21, 2021 12:00 AM Laboratory - Chemistry COCAINE SCREEN PANE L URINE [place] Order (DRUG) Jul 21, 2021 12:00 AM Laboratory - Chemistry CANNABINOIDS SCREEN PANEL [facility] URINE (DRUG) Jul 21, 2021 12:00 AM Laboratory - Chemistry ETG SCREEN (wx) URI NE [place] Order (DRUG) Jul 21, 2021 12:00 AM Laboratory - Chemistry OPIATES SCREEN PANE L URINE [place] Order (DRUG) Jul 21, 2021 12:00 AM Laboratory - Chemistry METHADONE SCREEN UR INE SP [facility] Jul 21, 2021 12:00 AM Laboratory - Chemistry OXYCODONE SCREEN PA RUDY [facility] URINE (DRUG) Social History: Smoking Status (Most current) and Tobacco Use (All prior to encounter date) This section includes the most current, and the historical, smoking and tobacco-related health factors from the [place] facility where the Encounter took place.Current Smoking Status This section includes the most current smoking, or tobacco-related health factor, from the [place] facility where the Encounter took place. Date/Time Current Smoking Status Comment Facility September 16, 2015 11:08 AM TOBACCO INPATIENT NO USE 30 [facility] [place] [place] [facility] Tobacco Use History This section includes a history of the smoking, or tobacco- related health factors, that were collected on or before the date of the Encounter. The data comes from the [place] facility where the Encounter took place. Date/Time Smoking Status/Tobacco Use Comment [facility] Jan 01, 2015 06:56 PM TOBACCO INPATIENT NO USE 30 [place] CNTR [place]N [place] DAYS [facility] September 14, 2013 02:47 PM TOBACCO INPATIENT NO USE 30 [place] CNT [place] DAYS [facility] Encounter Notes: All associated encounter notes This section contains the clinical notes associated to the Encounter. Date/Time Encounter Note(s) Provider Source Aug 21, 2021 11:47 AM PRIMARY CARE NOTE: BHARATH ROUSSEAU [facility] LOCAL TITLE: WALK-IN NOTE PRIMARY CARE (T) STANDARD TITLE: PRIMARY CARE NOTE DATE OF NOTE: AUG 21, 2021@11:47 ENTRY DATE: AUG 21, 2021@11:47:36 AUTHOR: BHARATH ROUSSEAU EXP COSIGNER: URGENCY: STATUS: COMPLETED WALK-IN NOTE PRIMARY CARE (T) Has ADDENDA * <====Click to Start Advanced Medical Support presents to the Primary Care clinic with the following request: [ X ]Medication Renewal/Refill Lisinopril - Vet has none, req temp fill this date, then ma [ ]Consultation with Team RN [ ]Symptoms [ ]Other The states they are: [ ]Waiting [ X ]Not Waiting No Walk in visit scheduled with PACT Nurse [ X ] At this encounter the Mckee's demographi cs were verified. [ X ] At this encounter the 's Insurance information was verified. [ X ] At this encounter the below scheduled visi ts for the were discussed and appointment reminder card wa s offered. Future appointments: 09/18/2021 14:00 SPOPC/MHC/ [facility] 10/22/2021 13:00 CWM/SO/PACT 5 /cyndi/ BHARATH DE [place], [facility] Signed: 08/21/2021 11:51 Receipt Acknowledged By: 08/21/2021 12:02 /cyndi/ Lynn Elizabeth, RN Registered Nurse 08/21/2021 ADDENDUM STATUS: COMPLETED Turf Keeper checked Mckee in to CWM/SO/sick RN Clin ic. /cyndi/ BHARATH DE [place], [facility] Signed: 08/21/2021 11:56 Receipt Acknowledged By: * AWAITING SIGNATURE * ORLANDO ORTIZ 08/21/2021 12:05 /cyndi/ LIMA FERNANDEZ-radiocommunications technician Nurse 08/21/2021 ADDENDUM STATUS: COMPLETED Please note, walking into clinic for a m ed renewal does not warrant scheduling an appointment in sick call. PCP alerted via teams. Refer to orders. FILIBERTO advised to notify vet to proceed to pharamc y. /cyndi/ LIMA FERNANDEZ-radiocommunications technician Nurse Signed: 08/21/2021 12:07 Receipt Acknowledged By: 08/21/2021 12:09 /es/ BHARATH ROUSSEAU [facility], [facility]
--- OUTSIDE RECORDS SUMMARY | 2022-06-12 20:05 | XMS_ITS | Encounter Summary ---
:1970 Author Organization [facility] rs Address [address] [place] [address] Support Name Relationship Address Phone ASHOK FINCH Unavailable 102 [facility] [phone] [place] [phone] ASHOK FINCH Unavailable [address]3[place] [address] VIDA LEON Unavailable 19 [facility] [place] [place] [address] Insurance Providers: All historical and current Section [...] Name to Policy Number Valencia [facility] Oct 23, GICRXS1 [id number] JASMYN TTA, PATIENT SCRIPTS ION 2017 [id number] RAN ([id number]) [facility] Oct 23, [id number] [phone] JASMYN TTA, PATIENT SCRIPTS ION 2018 [id number] 7 RAN ([id number]) [facility] Jun 27, [id number] JASMYN TTA, PATIENT [facility] 2019 [id number] 5 R[place] OF [employer] [facility] Oct 23, [id number] JASMYN TTA, PATIENT [facility] 2018 [id number] 5 [place] SULLY [employer] [facility] August 26, [id number] JASMYN TTA, PATIENT [facility] 2016 [id number] 5 R[place] [email or web address] August 26, [id number] [phone] JASMYN TTA, PATIENT LUI DEDUCTIBL ATE 2016 [id number] 5 RAN Goodman [facility] September 05, [id number] [phone] JASMYN TTA, PATIENT LUI [place] NWEAL 2008 [id number] R[place] OF [facility] Selected Encounter This section includes the information on record at [place] for the Encounter. Date/Time Encounter Type Encounter Description Reason Provider Source Aug 21, 2021 12:02 Outpatient Encounter PRIMARY CARE/MEDICINE PM IHE Encounter Template Text not used by MS Plan of Treatment: Future Appointments (+ 6 months) and Future Tests (+/- 45 days) The Plan of Treatment section includes future care activities for the patient from all [place] treatmentfacilities. This section includes future appointments and future orders which are active, pending orscheduled.Future Appointments This section includes appointments that were scheduled to occur 6 months from the date of the Encounter, up to a maximum of 20 appointments. The data comes from all [place] treatment [facility]. Appointment Date/Time Appointment Type Appointment Facili ty Name Sep 29, 2021 02:00 PM AMBULATORY - PSYCHIATRY [place] Nov 02, 2021 01:30 PM AMBULATORY MEDICINE [place] Nov 06, 2021 10:00 AM AMBULATORY MEDICINE [place] Nov 13, 2021 03:00 PM AMBULATORY - PSYCHIATRY [place] Jan 19, 2022 02:00 PM AMBULATORY PSYCHIATRY [place] Active, Pending, and Scheduled Orders This section includes a listing of several types of active, pending, and scheduled orders, including clinic medications orders, diagnostic test orders, procedure orders and consult orders; where the start date of the order is 45 days before the date of the Encounter or 45 days after the date of the Encounter. The data comes from all [facility] treatment [facility]. Test Date/Time Test Type Test Details Facility Name Jul 21, 2021 12:00 AM Laboratory - Chemistry LIVER FUNCTION BLOO D [place] Order (SST-SERUM) Jul 21, 2021 12:00 AM Laboratory - Chemistry ALCOHOL, ETHYL URIN E PANEL [place] Order URINE (DRUG) Jul 21, 2021 12:00 AM Laboratory - Chemistry AMPHETAMINES SCREEN PANEL [place] Order URINE (DRUG) Jul 21, 2021 12:00 AM Laboratory - Chemistry FENTANYL SCREEN MARTIN EL URINE [place] Order (DRUG) Jul 21, 2021 12:00 AM Laboratory - Chemistry BENZODIAZEPINES SCR EEN [facility] PANEL URINE (DRUG) Jul 21, 2021 12:00 AM Laboratory - Chemistry CANNABINOIDS SCREEN PANEL [place] Order URINE (DRUG) Jul 21, 2021 12:00 AM Laboratory - Chemistry COCAINE SCREEN PANE L URINE [place] Order (DRUG) Jul 21, 2021 12:00 AM Laboratory - Chemistry ETG SCREEN (wx) URI NE [place] Order (DRUG) Jul 21, 2021 12:00 AM Laboratory - Chemistry BUPRENORPHINE SCREE N PANEL [facility] URINE (DRUG) Jul 21, 2021 12:00 AM Laboratory - Chemistry OPIATES SCREEN PANE L URINE [place] Order (DRUG) Jul 21, 2021 12:00 AM Laboratory - Chemistry METHADONE SCREEN UR INE SP [facility] Jul 21, 2021 12:00 AM Laboratory - Chemistry OXYCODONE SCREEN PA RUDY [facility] URINE (DRUG) Social History: Smoking Status (Most current) and Tobacco Use (All prior to encounter date) This section includes the most current, and the historical, smoking and tobacco-related health factors from the [place] facility where the Encounter took place.Current Smoking Status This section includes the most current smoking, or tobacco-related health factor, from the [place] facility where the Encounter took place. Date/Time Current Smoking Status Comment Facility September 16, 2015 11:08 AM TOBACCO INPATIENT NO USE [facility] Tobacco Use History This section includes a history of the smoking, or tobacco- related health factors, that were collected on or before the date of the Encounter. The data comes from the [place] facility where the Encounter took place. Date/Time Smoking Status/Tobacco Use Comment [facility] Jan 01, 2015 06:56 PM TOBACCO INPATIENT NO USE 30 [facility] [place] [facility] September 14, 2013 02:47 PM TOBACCO INPATIENT NO USE [facility] [place] [facility] Encounter Notes: All associated encounter notes This section contains the clinical notes associated to the Encounter. Date/Time Encounter Note(s) Provider Source Aug 21, 2021 12:02 PM MEDICATION MGT NOTE: KIM MANUEL [place] LOCAL TITLE: OUTPATIENT MEDICATION REQUEST STANDARD TITLE: MEDICATION MGT NOTE DATE OF NOTE: AUG 21, 2021@12:02 ENTRY DATE: AUG 21, 2021@12:02:37 AUTHOR: KIM MANUEL EXP COSIGNER: URGENCY: STATUS: COMPLETED Medication Request Date of Request: Jul Please renew for [employer]. 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 LISINOPRIL TAB 30MG TAKE ONE TABLET BY MOUTH ONCE DAILY TO CONTROL B LOOD PRESSURE Quantity: 90 Refills: 1 /es/ Kim Manuel RN Registered Nurse Signed: 08/21/2021 12:03 Receipt Acknowledged By: 08/21/2021 12:05 /es/ ALEXIS JAMES MD PHYSICIAN
--- OUTSIDE RECORDS SUMMARY | 2022-06-12 20:05 | XMS_ITS | Encounter Summary ---
:1970 Author Organization Department [facility] rs Address [address] [place] [address] Support Name Relationship Address Phone ASHOK FINCH Unavailable [address] [facility] [phone] [place] [phone] ASHOK FINCH Unavailable [address] [address] VIDA LEON Unavailable 19 [facility] [place] [address] Insurance Providers: All historical and current Section [...] Name to Policy Number Valencia [facility] Oct 23, GICRXS1 [id number] JASMYN TTA, PATIENT SCRIP[place] ION 2018 [id number] RAN ([id number]) [facility] Oct 23, [id number] [phone] JASMYN TTA, PATIENT SCRIPTS ION 2018 [id number] RAN ([id number]) [facility] Jun 27, [id number] JASMYN TTA, PATIENT [facility] 2019 [id number] 5 [place] OF [employer] [facility] Oct 23, [id number] JASMYN TTA, PATIENT [facility] 2018 [id number] 5 [place] Forrst [facility] August 26, [id number] JASMYN TTA, PATIENT [facility] 2016 [id number] 5 R[place] [facility] August 26, [id number] [phone] JASMYN TTA, PATIENT LUI DEDUCTIBL ATE 2016 001 [id number] 5 RAN Goodman [facility] September 05, [id number] [phone] JASMYN TTA, PATIENT LUI [place] NWEAL 2008 [id number] 5 [place] OF [facility] Selected Encounter This section includes the information on record at [place] for the Encounter. Date/Time Encounter Type Encounter Description Reason Provider Source September 15, 2021 12:00 Outpatient Encounter EVENT (HISTORICAL) AM IHE Encounter Template Text not used by [place] Plan of Treatment: Future Appointments (+ 6 months) and Future Tests (+/- 45 days) The Plan of Treatment section includes future care activities for the patient from all [place] treatmentfacilities. This section includes future appointments and future orders which are active, pending orscheduled.Future Appointments This section includes appointments that were scheduled to occur 6 months from the date of the Encounter, up to a maximum of 20 appointments. The data comes from all [place] treatment facilities. Appointment Date/Time Appointment Type Appointment Facili ty Name Sep 29, 2021 02:00 PM AMBULATORY - PSYCHIATRY [place] Nov 02, 2021 01:30 PM AMBULATORY MEDICINE [place] Nov 06, 2021 10:00 AM AMBULATORY MEDICINE [place] Nov 13, 2021 03:00 PM AMBULATORY PSYCHIATRY [place] Jan 19, 2022 02:00 PM AMBULATORY PSYCHIATRY [place] Social History: Smoking Status (Most current) and Tobacco Use (All prior to encounter date) This section includes the most current, and the historical, smoking and tobacco-related health factors from the [place] facility where the Encounter took place.Current Smoking Status This section includes the most current smoking, or tobacco-related health factor, from the [place] facility where the Encounter took place. Date/Time Current Smoking Status Comment Facility September 16, 2015 11:08 AM TOBACCO INPATIENT NO USE 30 [facility] CNTRL [facility] [place] DAYS [facility] Tobacco Use History This section includes a history of the smoking, or tobacco- related health factors, that were collected on or before the date of the Encounter. The data comes from the [place] facility where the Encounter took place. Date/Time Smoking Status/Tobacco Use Comment [facility] it Jan 01, 2015 06:56 PM TOBACCO INPATIENT NO USE 30 [facility] [place] [facility] September 14, 2013 02:47 PM TOBACCO INPATIENT NO USE 30 [facility] [place] DAYS [facility] Encounter Notes: All associated encounter notes This section contains the clinical notes associated to the Encounter. Date/Time Encounter Note(s) Provider Source September 15, 2021 12:00 AM [facility] LOCAL TITLE: COMMUNITY CARE-CONSULT RESULT [place]O NOSCOPY [place] [facility] STANDARD TITLE: NONVA CONSULT DATE OF NOTE: SEPTEMBER 15, 2021 ENTRY DATE: NOV 07@11:27:23 AUTHOR: DAYANNA CURTIS EXP COSIGNER: URGENCY: STATUS: COMPLETED VistA Imaging - Scanned Document SCANNED DOCUMENT SIGNATURE NOT REQUIRED Electronically Filed: 11/07/2021 by: DAYANNA CURTIS SYSTEMS ANALYST ENGINEER (AUTO BODY PAINTER) September 15, 2021 12:00 AM NONVA CONSULT[facility] LOCAL TITLE: COMMUNITY CARE-CONSULT RESULT [place]OSCOPY [place] [facility] STANDARD TITLE: NONVA CONSULT DATE OF NOTE: SEPTEMBER 15, 2021 ENTRY DATE: NOV 07@11:29:08 AUTHOR: DAYANNA CURTIS EXP COSIGNER: URGENCY: STATUS: COMPLETED VistA Imaging - Scanned Document SCANNED DOCUMENT SIGNATURE NOT REQUIRED Electronically Filed: 11/07/2021 by: DAYANNA CURTIS SYSTEMS ANALYST ENGINEER (AUTO BODY PAINTER)
--- OUTSIDE RECORDS SUMMARY | 2022-06-12 20:08 | XMS_ITS | Encounter Summary ---
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 edema Gastrointestinal: no abdominal pain/bloody/laura k stools, n/v/c/d :no dysuria/hematuria/trouble voiding MSK: no joint pain/myalgia Neuro: no dizziness/H/A Skin: no pruritus/rash PHYSICAL EXAM: Vital Signs: Blood Pressure: 143/68 (05/04/2022 13:13)--> manual repeat blood pressure 130/80 128/80 (04/10/2021 09:47) Pain: 0 (05/04/2022 13:13) Pulse: 73 (05/04/2022 13:13) Respiration: 16 (05/04/2022 13:13) Temperature: 97.9 F [36.6 C] (05/04/2022 13:13) BMI: 35.5 Patient Weight: 215 lb [97.52 kg] (05/04/2022 13:13) 218.6 lb [99.4 kg] (04/10/2021 09:47) 226.3 lb [102.9 kg] (12/14/2018 13:02) GA: AOx3, NAD NECK: supple, no LAD CVS: RRR Lungs: CTA b/l ABD:Soft, NT/ND EXT: no edema skin: Right upper back well-healed surgical scar LABORATORY:no recent labs EK05/22/2020 in ED: nsr (vista) #liver US/elastography 03/2021 elevated LFTs + AUD.obesity 1. Mild hepatic steatosis. 2. Median liver stiffness value of 5.94 kPa, sug gesting that in the absence of other known clinical signs, chronic advanced liver disease is effective ruled out. However, if there are known clinical signs of cACLD, further testing should be considered. ASSESSMENT/PLAN: Pt is 51 y/o M with PMH of Obesity, HTN, HL, bip olar/depression, PTSD, alcohol abuse with alcoholic hepatitis and chron ic transaminitis # HTN: well controlled, goal <130/80 -continue self monitoring -h/o BP variations in the setting of anxiety/alc ohol -c/w lisinopril 30mg daily -check labs today -DASH diet/exercise/alcohol avoidance encouraged # HL: LDL 149, TG 341 (2020) -c/w Pravastatin 40mg - pt not taking daily -QUIT ALCOHOL USE -check lipid panel today # Obesity:BMI 34 -declined nutrition consult/referral to [facility] -portion control, diet reviewed with pt # Liver -transaminitis: 03/2021 liver U/S c/w Mild hepatic steatosis. elastography: stiffness value of 5.94 kPa within normal range. - HAV/HBV immune, HCV positive (RNA neg) - alcohol avoidance encouraged - weight loss/exercise - check LFTs today #excessive alcohol use:denies SI -f/w MH -alcohol use counseling today -c/w gabapentin 300mg BID (anxiety/sleep/alcohol cravings) #vit D def:on D3 supplementation -check level # PTSD/bipolar/depression/AUD - Quetiapine and gabapentine. - f/w MH #BIANCA -mild -(AHI) of 8.3(07/2020) asymptomatic de clines CPAP rx -weight loss -avoid sleeping in supine position Healthcare maintenance: --Lipids: LDL 149 (03/2021) --Diabetes: A1c 5.1 (02/2020) --Colon CA (50-75): due 08/2031 colonoscopy 08/2021 one 4mm rectal polyp - HP --Lung CA: n/a --PSA --AAA (smoker/65): --Influenza (yrly): declined --COVID-19 (PFIZER) 2020 X3 --PCV13 --PCV23: 2018 --RZV (>50yrs, x2): --TDAP: 2013 --Hep C screen: 2013 positive , RNA neg --HAV x2 --HBV Immune --HIV screen: --DEXA: --Advanced Directives: Address at next visit: obesity, HTN/HL, alcohol Return to clinic to see me in _6_ months, sooner PRN. Virtual ( ), F2F ( X) (x)fasting labs prior to next visit BMI>30/>24.99 High Risk: At this visit, the health risks of obesity were reviewed and discussed with the , and the benefits of a weight management treatment program, such as [facility]! was discussed and offere d to the [place]. Tobacco Use Screening: The patient has never used tobacco. Influenza Immunization: The patient declines to receive the recommended dose of seasonal influenza vaccine. Immunization: INFLUENZA, UNSPECIFIED FORMULATIO N Refusal Reason: PATIENT DECISION Patient refuses all immunization(s) in the FLU group Date Documented: 05/04/22 13:36 Pneumococcal Conjugate Vaccine (PCV15/PCV20): See orders. 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 [place]/caregiver believes the was expo sed to the following while serving in the Armed Forces: Open Burn Pits/Airborne Hazards: /caregiver was made aware of educational resources that includes information on the Registry Program, p resumptive conditions and how to file a claim. Printed information wa s offered and provided if desired. /caregiver does not have questions at th is time. [place]/caregiver was informed of local points of contact. Contact information for local resources: Benefits/Claim for Disability Compensation Ques tions:National [place] Healthcare Enrollment: [facility] Eligibility dire t dialed at [phone] Registry: Enviromental Health Coordinator ext [phone] /caregiver has no health or medical conc erns related to their concern of environmental exposure. The following connections were provided to the /caregiver: None /es/ ALEXIS JAMES MD PHYSICIAN Signed: 05/04/2022 16:12
--- OUTSIDE RECORDS SUMMARY | 2022-06-12 20:08 | XMS_ITS | Encounter Summary ---
:1970 Author Organization Department [facility] rs Address [address] [place] [address] Support Name Relationship Address Phone ASHOK FINCH Unavailable [address] [facility] [place] [address] ASHOK FINCH Unavailable [address]RD FLOOR ( [phone] [place] [address] BAND SHOVER, VIDA Unavailable [address] [facility] [place] [address] Insurance Providers: All historical and current Section [...] Name to Policy Number [facility] Oct 23, [id number] JASMYN TTA, PATIENT SCRIPTS ION 2017 [id number] RAN ([id number]) [facility] Oct 23, [id number] JASMYN TTA, PATIENT SCRIPTS ION 2018 [id number] RAN ([id number]) [employer] [facility] Jun 27, [id number] JASMYN TTA, PATIENT [facility] 2019 [id number] [place] [place] [facility] [facility] Oct 23, [id number] JASMYN TTA, PATIENT [facility] 2018 [id number] [place] [employer] [facility] August 26, [id number] JASMYN TTA, PATIENT [facility] 2017 [id number] [address] [place] [employer] [facility] August 26, [id number] [phone] JASMYN TTA, PATIENT [facility] 2016 [id number] RAN [facility] September 05, [id number] [phone] JASMYN TTA, PATIENT [facility] [place] [facility] [id number] [facility] [facility] [facility] Selected Encounter This section includes the information on record at [place] for the Encounter. Date/Time Encounter Type Encounter Reason Provider Source Description Mar 23, 2022 OFFICE O/P EST MENTAL HEALTH ICD-10-CM STEPHEN CLARK 02:00 PM MOD 30-39 MIN CLINIC - IND F43.12 N G Post-traumatic stress disorder, chronic with Provider Comments: Chronic post-traumatic stress disorder ([facility] [id number]) IHE Encounter Template Text not used by [facility] Assessments - Encounter Diagnoses This section includes the primary and secondary diagnoses documented for the Encounter. Date/Time Primary/Secondary Diagnosis Name Provider Source Diagnosis Mar 23, 2022 PRIMARY Post-traumatic THEA CLARK GLORIA Jiménez 09:24 PM stress disorder, G chronic Plan of Treatment: Future Appointments (+ 6 months) and Future Tests (+/- 45 days) The Plan of Treatment section includes future care activities for the patient from all [place] [facility]. This section includes future appointments and future orders which are active, pending orscheduled.Future Appointments This section includes appointments that were scheduled to occur 6 months from the date of the Encounter, up to a maximum of 20 appointments. The data comes from all [place] treatment [facility]. Appointment Date/Time Appointment Type Appointment Facili ty Name May 04, 2022 01:00 PM AMBULATORY - MEDICINE [facility] May 21, 2022 02:00 PM AMBULATORY - PSYCHIATRY [facility] Jun 18, 2022 02:30 PM AMBULATORY PSYCHIATRY [facility] Jun 22, 2022 01:30 PM AMBULATORY - MEDICINE [facility] Active, Pending, [...] the Encounter. The data comes from all [place] treatment facilities. Test Date/Time Test Type Test Details Facility Name Mar 23, 2022 12:00 AM Laboratory - Chemistry LIPID PANEL FASTING [facility] BLOOD (SST-SERUM) SP Mar 23, 2022 12:00 AM Laboratory - Chemistry LIVER FUNCTION BLOO D [facility] Order (SST-SERUM) SP Social History: Smoking Status (Most current) and Tobacco Use (All prior to encounter date) This section includes the most current, and the historical, smoking and tobacco-related health factors from the [place] facility where the Encounter took place.Current Smoking Status This section includes the most current smoking, or tobacco-related health factor, from the [place] facility where the Encounter took place. Date/Time Current Smoking Status Comment Facility May 22, 2021 09:00 AM [facility] Tobacco Use History This section includes a history of the smoking, or tobacco- related health factors, that were collected on or before the date of the Encounter. The data comes from the [place] facility where the Encounter took place. Date/Time Smoking Status/Tobacco Use Comment [facility] May 22, 2020 10:30 AM VA-TOBACCO NEVER USED [facility] Dec 14, 2018 03:55 PM VA-TOBACCO NEVER USED [facility] Dec 19, 2017 03:19 PM VA-TOBACCO NEVER USED [facility] Jun 07, 2017 03:02 PM LIFETIME NON-TOBACCO USER [facility] Jun 01, 2016 10:33 AM LIFETIME NON-TOBACCO USER [facility] May 29, 2015 02:35 PM LIFETIME NON-TOBACCO USER [facility] Nov 20, 2007 02:48 PM LIFETIME NON-TOBACCO USER [facility] Encounter Notes: All associated encounter notes This section contains the clinical notes associated to the Encounter. Date/Time Encounter Note(s) Provider Source Mar 23, 2022 02:01 PM PSYCHIATRY NOTE: THEA CLARK [facility] LOCAL TITLE: PSYCHIATRY NOTE STANDARD TITLE: PSYCHIATRY NOTE DATE OF NOTE: MAR 23, 2022@14:01 ENTRY DATE: MAR 23, 2022@14:01:26 AUTHOR: THEA CLARK EXP COSIGNER: URGENCY: STATUS: COMPLETED 30 minutes for encounter, including chart review , interview, charting Chart reviewed The patient invited his in for part of the session, she feels the patient is improved overall. Pt relatively stable. He again presents with usu al mental status. Mood is stable. Denies recent depression. Denies elevated mood. PTSD symptoms and anxiety improved overall. Affect brightens a ppropriately, full range, no lability. He denies SI and violent ideation. Den ies recent dissociative experiences. Speech is normal. Denies AHs. Well organized thoughts. No PI presented. No delusional con tent presented. Optimisitic. Cognitive exam grossly intact. Future oriented. Good grooming/hygiene. No slowing. The patient again feels the current medications are helping signif icantly and wants to continue them. Again patient reports some r eduction in drinking, he states is trying to reduce it gradually. Reports alcohol every third or fou rth day, but reduced amount. Patient reports occasional Xanax use (0.25 mg occasionally by his repor t)--I again strongly advised him against taking the Xanax; denies cocaine use; denies other street d rugs; denies benadryl use Denies psych med side effects; no daytime sedati on; reports mostly med compliant pt has some supports; pt's mother and are m ain supports wt 215 lbs 10/2021 Active problems - Computerized Problem List is t he source for the followin. Cocaine user 2. Alcohol dependence 3. Acute low back pain 4. Hypnotic or anxiolytic abuse 5. Hepatitis C antibody test positive 6. Liver function tests abnormal 7. Hyperlipidemia 8. Bipolar affective disord er, current episode depression (SNOMED CT 850934336) 9. Benign essential hypertension (SNOMED CT 120 2014) 10. Chronic post-traumatic stress disorder (SN ED CT 232339891) 11. Bursitis 12. Alcoholic hepatitis (SNOMED CT 637075461) 13. Pain in joint involving shoulder region [...] CAP TAKE ONE CAPSULE BY MOUT H TWICE ACTIVE DAILY NEEDED FOR ANXIETY 4) LISINOPRIL 30MG [...] has safety plan as a precaut ion Again, we had another carefu l discussion, I again reviewed with the patient the medical and mental health risks of alcohol depen dence, including the risk of cirrhosis. I again offered t he patient inpatient psychiatric admission for detox -- pt declines this now; I again offered pt [facility] IOP -- but declines this; Encourage AA and get sponsor . Encourge our [facility] grp. I also reviewed the dangers associated with the Xanax use, I advised him to discontinue this. Patient previously declined [facility] 9 referral for PTSD treatment encourage psychotherapy at [facility] ; the patient reports he has not attended [facility] recently, patient does not feel he needs therapy at this time Again, after another discussion, we decided to c ontinue seroquel 75 mg qhs -- pt finds this dose effective and well tolerated, he does not want higher dose -- he fe els it helps bipolar depression/mood stability ; pt found higher dose too slowing Continue gabapentin 300 mg twice daily as needed for anxiety previously reduced)-- again finds helpful for anxiety and for decreasi ng alcohol craving -- good response -- he understands this is an off label use for this medication. Side effect profile reviewed with patient. After care ful consideration, benefits outweigh risks. again declines campral for AUD; again, [...] 2 months to see me for check in ; (and pt is good re using open [...] whether with a VA or non-VA provider. Atyp Antipsych Metabol Syndrome : Lipid profile ordered at this encounter. AIMS Testing: AIMS (Mental Health Instrument) The patient was evaluated for symptoms of tardi ve dyskinesia using the AIMS. Total score for items 1-7: 0 /es/ THEA CLARK MD STAFF PSYCHIATRIST Signed: 03/23/2022 21:24
--- OUTSIDE RECORDS SUMMARY | 2022-06-12 20:09 | XMS_ITS | Encounter Summary ---
:1970 Author Organization Department [facility] rs Address [address] [place] [address] Support Name Relationship Address Phone ASHOK FINCH Unavailable [address] [facility] [phone] [place] [address] ASHOK FINCH Unavailable [address] [place] [address] DEHYDROGENATION SUPERVISOR, VIDA Unavailable [address] [facility] [place] [address] Insurance Providers: All historical and current Section [...] Name to Policy Number [place] [facility] Oct 23, [id number] JASMYN TTA, PATIENT SCRIPTS ION 2018 [id number] RAN ([id number]) [facility] Oct 23, [id number] JASMYN TTA, PATIENT SCRIPTS ION 2018 [id number] RAN ([id number]) [place] [facility] Jun 27, [id number] [id number] JASMYN TTA, PATIENT [facility] 2019 [id number] [place] [facility] [employer] [facility] Oct 23, [id number] JASMYN TTA, PATIENT [facility] 2018 [id number] [place] [place] [employer] [facility] August 26, [id number] JASMYN TTA, PATIENT [facility] 2017 [id number] [facility] [place] [facility] [employer] [facility] August 26, [id number] [phone] JASMYN TTA, PATIENT [facility] ATE [id number] RAN [facility] September 05, [id number] [phone] JASMYN TTA, PATIENT L[facility] [place] [facility] 2008 [id number] [place] [place] OF [facility] Selected Encounter This section includes the information on record at [place] for the Encounter. Date/Time Encounter Type Encounter Reason Provider Source Description May 21, 2022 OFFICE O/P EST MENTAL HEALTH ICD-10-CM F31.32 ST JAMAAL CLARK 02:00 PM MOD 30-39 MIN CLINIC - IND Bipolar N G disorder, current episode depressed, moderate with Provider Comments: Bipolar affective disorder, current episode depression ([facility] [id number]) IHE Encounter Template Text not used by [facility] Assessments - Encounter Diagnoses This section includes the primary and secondary diagnoses documented for the Encounter. Date/Time Primary/Secondary Diagnosis Name Provider Source Diagnosis May 21, 2022 PRIMARY Bipolar disorder, STEPHEN CLARK [facility] 06:22 PM current episode N G depressed, moderate May 21, 2022 SECONDARY Alcohol dependence, STEPHEN CLARK [facility] 06:22 PM uncomplicated N G May 21, 2022 SECONDARY Post-traumatic STEPHEN CLARKFIELD 06:22 PM stress disorder, N G chronic Plan of Treatment: Future Appointments (+ 6 months) and Future Tests (+/- 45 days) The Plan of Treatment section includes future care activities for the patient from all [place] treatmentfacilities. This section includes future appointments and future orders which are active, pending orscheduled.Future Appointments This section includes appointments that were scheduled to occur 6 months from the date of the Encounter, up to a maximum of 20 appointments. The data comes from all [place] treatment facilities. Appointment Date/Time Appointment Type Appointment Facili ty Name Jun 18, 2022 02:30 PM AMBULATORY - PS[place]CHIATRY [place] Jun 22, 2022 01:30 PM AMBULATORY - MEDICINE [facility] Nov 09, 2022 01:00 PM AMBULATORY - MEDICINE [place] Active, Pending, and Scheduled Orders This section includes a listing of several types of active, pending, and scheduled orders, including clinic medications orders, diagnostic test orders, procedure orders and consult orders; where the start date of the order is 45 days before the date of the Encounter or 45 days after the date of the Encounter. The data comes from all [place] treatment facilities. Test Date/Time Test Type Test Details Facility Name May 28, 2022 12:00 AM Laboratory - Chemistry LIVER FUNCTION BLOO D [place] Order (SST-SERUM) SP Lab Results: +/- 30 days of the encounter This section includes the Chemistry and Hematology Lab Results on record with NE for the patient. Radiology Reports and Pathology Reports are provided separately, in subsequent sections.Lab Results This section contains the Chemistry/Hematology Results that were resulted 30 days before or 30 daysafter the date of the Encounter. Date/Time Source Result Type Result - Unit Interpretation Reference Range Comment May 26, 2022 12:31 PM [place] FENTANYL SCREEN PANEL Spe cimen Type: URINE [...] May 24, 2022 05:46 PM Reporting Lab: [facility] [address] [facility] [address] Performing Lab: [address] [address] FENTANYL SCREEN NONE-DETECTED Negative: Cutoff = 1.00 ng/mL PH, MAXINE 5.0 4-10 CREATININE, MAXINE 12.94 L >20 SP.GRAVITY, MAXINE 1.007 1.003-1.020 May 26, 2022 12:31 PM [place] ETG SCREEN (wx) Specimen Type: URINE Comment: MAXINE te st are qualitative, any L or H flags only indicate a VA alert was sent. This ETG test was developed and its performance characteristics determined by [place] clinical lab. The [place] Food and David g Administration has not approved or cleared this test, FDA clearance or approval is not currently required for clinical use. ETG cutoff 500 ng/mL Ordering Provid er: THEA CLARK Report Released Date/Time: May 24, 2022 05:46 PM Reporting Lab: [address] [address] Performing Lab: [facility] [address] [facility] [address] ETG SCREEN (wx) Negative L Negative May 26, 2022 12:31 PM [place] METHADONE SCREEN Specimen Type: URINE Comment: MAXINE te st are qualitative, any L or H flags only indicate a VA alert was sent. Ordering Provid er: THEA CLARK Report Released Date/Time: May 24, 2022 05:46 PM Reporting Lab: [address] [address] Performing Lab: [facility] [address] [facility] [address] METHADONE SCREEN None detected(Negative) L Negative May 26, 2022 12:31 [place] ALCOHOL, ETHYL URINE Specime n Type: URINE [...] May 24, 2022 05:46 PM Reporting [facility] [address] [address] Performing Lab: [address] [address] ALCOHOL, ETHYL URINE NONE-DETECTED NONE- DETECTED, cutoff = 10 mg/dL PH, MAXINE 5.0 4-10 CREATININE, MAXINE 13.38 L >20 SP.GRAVITY, MAXINE 1.006 1.003-1.020 May 26, 2022 12:31 [place] AMPHETAMINES SCREEN PANEL Sp ecimen Type: URINE [...] May 24, 2022 05:46 PM Reporting Lab: [facility] [address] [facility] [address] Performing Lab: [address] [address] AMPHETAMINES SCREEN NONE-DETECTED None-D etected, Cutoff = 1000 ng/mL PH, MAXINE 5.0 4-10 CREATININE, MAXINE 13.38 L >20 SP.GRAVITY, MAXINE 1.006 1.003-1.020 May 26, 2022 12:31 [place] BENZODIAZEPINES SCREEN PANEL Specimen Type: URINE PM [...] May 24, 2022 05:46 PM Reporting Lab[facility] [address] [facility] [address] Performing Lab: [facility] [address] BENZODIAZEPINES SCREEN NONE-DETECTED Non e-Detected, Cutoff = 200 ng/mL PH, MAXINE 5.0 4-10 CREATININE, MAXINE 13.38 L >20 SP.GRAVITY, MAXINE 1.006 1.003-1.020 May 26, 2022 12:31 [place] CANNABINOIDS SCREEN PANEL Sp ecimen Type: URINE [...] May 24, 2022 05:46 PM Reporting Lab: [facility] [address] [facility] [address] Performing Lab: [facility] [address] [address] CANNABINOIDS SCREEN NONE-DETECTED None-D etected,Cutoff = 50 ng/mL PH, MAXINE 5.0 4-10 CREATININE, MAXINE 13.38 L >20 SP.GRAVITY, MAXINE 1.006 1.003-1.020 May 26, 2022 12:31 [place] BUPRENORPHINE SCREEN PANEL S pecimen Type: URINE [...] May 24, 2022 05:46 PM Reporting Lab: [facility] [address] [facility] [address] Performing Lab: [facility] [address] [address] BUPRENORPHINE (URINE) NONE-DETECTED None Detected, Cutoff = 10.0 ng/mL PH, MAXINE 5.0 4-10 CREATININE, MAXINE 13.38 L >20 SP.GRAVITY, MAXINE 1.006 1.003-1.020 May 26, 2022 12:31 PM [place] COCAINE SCREEN PANEL Spec imen Type: URINE [...] May 24, 2022 05:46 PM Reporting Lab: [address] [address] Performing Lab: [address] [address] COCAINE SCREEN NONE-DETECTED None-Detect ed,Cutoff = 300 ng/mL PH, MAXINE 5.0 4-10 CREATININE, MAXINE 13.38 L >20 SP.GRAVITY, MAXINE 1.006 1.003-1.020 May 26, 2022 12:31 PM [place] OPIATES SCREEN PANEL Spec imen Type: URINE [...] May 24, 2022 05:46 PM Reporting Lab: [address] [address] Performing Lab: [address] [address] OPIATES SCREEN NONE-DETECTED None-Detect ed, Cutoff = 300 ng/mL PH, MAXINE 5.0 4-10 CREATININE, MAXINE 13.38 L >20 SP.GRAVITY, MAXINE 1.006 1.003-1.020 May 26, 2022 12:31 [place] OXYCODONE SCREEN PANEL Speci men Type: URINE [...] May 24, 2022 05:46 PM Reporting Lab: [facility] [address] [facility] [address] Performing Lab: [facility] [address] [address] OXYCODONE SCREEN NONE-DETECTED None-Dete cted, Cutoff = 100 ng/mL PH, MAXINE 5.0 4-10 CREATININE, MAXINE 13.38 L >20 SP.GRAVITY, MAXINE 1.006 1.003-1.020 May 04, 2022 [place] HEMOGLOBIN A1C Specimen Type: BLOOD 01:59 PM [...] Apr 28, 2022 01:04 PM Reporting Lab: [facility] [address] [facility] [address] Performing Lab: [facility] [address] [address] HEMOGLOBIN A1C 5.1 4.0-5.6 May 04, 2022 [place] LIPID PANEL FASTING Specimen Ty pe: SERUM 01:59 PM No comment enter ed. Ordering Provid er: ALEXIS JAMES Report Released Date/Time: Apr 28, 2022 01:04 PM Reporting Lab: [facility] [address] [address] Performing Lab: [facility] [address] CHOLESTEROL 267 H <7-199 TRIGLYCERIDE 395 H 0-150 LDL calculated Reflex to dLDL 0-129 CHOL/HDL 5.2 HDL CHOLESTEROL 51 40-60 May 04, 2022 01:59 PM [place] TSH Specimen Type: SERUM No comment enter ed. Ordering Provid er: ALEXIS JAMES Report Released Date/Time: Apr 28, 2022 01:04 PM Reporting Lab: [facility] [place] [facility] [address] [address] Performing Lab: [place] [facility] [facility] [address] [address] TSH 2.06 0.35-5.00 May 04, 2022 01:59 [place] LIVER FUNCTION Specimen Typ e: SERUM PM No comment enter ed. Ordering Provid er: ALEXIS JAMES Report Released Date/Time: Apr 28, 2022 01:04 PM Reporting Lab: [facility] [place] [facility] [address] [facility] [address] Performing Lab: [facility] [place] [facility] [address] [address] PROTEIN,TOTAL 7.5 6.0-8.3 ALBUMIN 4.2 3.5-5.0 ALKALINE PHOSPHATASE 55 40-150 AST 31 5-34 ALT 60 H <6-55 BILIRUBIN, TOTAL 0.9 0.2-1.2 May 04, 2022 [place] VITAMIN D (25-OH) Specimen Type : SERUM 01:59 PM No comment enter ed. Ordering Provid er: ALEXIS JAMES Report Released Date/Time: Apr 28, 2022 01:04 PM Reporting Lab: [facility] [place] [facility] [address] [address] Performing Lab: [facility] [place] [facility] [address] [address] VITAMIN D (25-OH) 21 20-50 May 04, 2022 01:59 PM [place] LDL DIRECT Specimen Type: SERUM No comment enter ed. Ordering Provid er: ALEXIS JAMES Report Released Date/Time: Apr 28, 2022 01:04 PM Reporting Lab: [place] [facility] [place] [facility] [address] [address] Performing Lab: [facility] [place] [facility] [address] [address] LDL DIRECT 159 H <10-120 May 04, 2022 01:59 PM [place] PSA Specimen Type: SERUM No comment enter ed. Ordering Provid er: ALEXIS JAMES Report Released Date/Time: Apr 28, 2022 01:04 PM Reporting Lab: [place] [facility] [place] [facility] [address] [facility] [address] Performing Lab: [place] [facility] [place] [facility] [address] [facility] [address] PSA 0.46 0.00-4.00 May 04, 2022 [place] BASIC METABOLIC Specimen Type: SERUM 01:59 PM PANEL (fasting) No comment enter ed. Ordering Provid er: ALEXIS JAMES Report Released Date/Time: Apr 28, 2022 01:04 PM Reporting Lab: [place] [facility] [place] [facility] [address] [facility] [address] Performing Lab: [place] [facility] [place] [facility] [address] [facility] [address] UREA NITROGEN 15 7-25 GLUCOSE 99 65-100 SODIUM 133 L 135-145 POTASSIUM 4.4 3.5-5.0 CHLORIDE 103 100-110 CO2 23 20-30 CREATININE, Serum 0.81 0.50-1.40 eGFR(CKD-EPI 2020) >90 >60 May 04, 2022 [place] CBC AND DIFF Specimen Type: BLOOD 01:59 PM (AUTO) No comment enter ed. Ordering Provid er: ALEXIS JAMES Report Released Date/Time: Apr 28, 2022 01:04 PM Reporting Lab: [place] [facility] [place] [facility] [address] [facility] [address] Performing Lab: [place] [facility] [place] [facility] [address] [facility] [address] WBC 6.03 4.50-11.00 RBC 4.97 4.23-5.66 HGB 14.6 12.8-17 HCT 41.8 39.2-50.4 MCV 84.1 82-99 MCHC 34.9 30.8-35.1 PLT 205 140-360 RDW-CV 12.1 12.0-16.0 [place], Abs 0.40 0.30-1.10 MCH 29.4 26.2-32.6 Neut % 54.5 Lymph % 37.1 [place] % 6.6 Eos % 1.2 Baso % 0.3 Neut, Abs 3.28 2.20-7.60 Lymph, Abs 2.24 1.00-3.20 Eos, Abs 0.07 0.03-0.44 Baso, Abs 0.02 0.01-0.13 Immature Gran % 0.3 Immature Gran, Abs 0.02 0.00-0.06 Social History: Smoking Status (Most current) and Tobacco Use (All prior to encounter date) This section includes the most current, and the historical, smoking and tobacco-related health factors from the NE facility where the Encounter took place.Current Smoking Status This section includes the most current smoking, or tobacco-related health factor, from the [place] facility where the Encounter took place. Date/Time Current Smoking Status Comment Facility May 04, 2022 01:00 PM [facility] Tobacco Use History This section includes a history of the smoking, or tobacco- related health factors, that were collected on or before the date of the Encounter. The data comes from the [facility] where the Encounter took place. Date/Time Smoking Status/Tobacco Use Comment [facility] May 22, 2021 09:00 AM VA-TOBACCO NEVER USED [place] May 22, 2020 10:30 AM VA-TOBACCO NEVER USED [place] Dec 14, 2018 03:55 PM VA-TOBACCO NEVER USED [place] Dec 19, 2017 03:19 PM VA-TOBACCO NEVER USED [place] Jun 07, 2017 03:02 PM LIFETIME NON-TOBACCO USER [place] Jun 01, 2016 10:33 AM LIFETIME NON-TOBACCO USER [place] May 29, 2015 02:35 PM LIFETIME NON-TOBACCO USER [place] Nov 20, 2007 02:48 PM LIFETIME NON-TOBACCO USER [place] Encounter Notes: All associated encounter notes This section contains the clinical notes associated to the Encounter. Date/Time Encounter Note(s) Provider Source May 21, 2022 01:56 PM PSYCHIATRY NOTE: THEA CLARK [place] LOCAL TITLE: PSYCHIATRY NOTE STANDARD TITLE: PSYCHIATRY NOTE DATE OF NOTE: MAY 21, 2022@13:56 ENTRY DATE: MAY 21, 2022@13:56:58 AUTHOR: THEA CLARK EXP COSIGNER: URGENCY: STATUS: COMPLETED PSYCHIATRY NOTE Has ADDENDA 30 minutes for encounter, including chart review , interview, charting Chart reviewed Pt relatively stable. He again presents with usu al mental status. Mood is stable. Denies recen t depression, except occasional symptoms when under stress. Denies elevated mood. PTSD symptoms and anxiety symptoms improved compared with year s ago, but fluctuate with stress. Affect brightens appropriately, full ran ge, no lability. He denies SI and violent ideation. Den ies recent dissociative experiences. Speech is normal. Denies AHs. Well organized thoughts. No PI presented. No delusional con tent presented. Optimisitic. Cognitive exam grossly intact. Future oriented. Good grooming/h ygiene. No slowing. Another discussion and the patient feels he is benefiting from current psychiatric medications and wants to continue them. Overall, patient reports a harm reductio n strategy he tries to reduce drinking compared to previously, but can drink every othe r day sometimes, but reduced amount compared to several years ago by his repo rt. Patient reports occasional Xanax use (0.25 mg occasionally by his repor t)--I again strongly advised him against taking the Xanax; denies cocaine use; denies other street d rugs; denies benadryl use Denies psych med side effects; no daytime sedati on; reports mostly med compliant pt has some supports; pt's mother and are m ain supports wt 215 lbs 04/2022; patient reports trying to exe rcise regularly Active problems - Computerized Problem List is t he source for the followin. Obesity ([facility] [id number]) 2. Cocaine user 3. Alcohol dependence 4. Acute low back pain 5. Hypnotic or anxiolytic abuse 6. Hepatitis C antibody test positive 7. Liver function tests abnormal 8. Hyperlipidemia 9. Bipolar affective disord er, current episode depression (SNOMED CT 660338716) 10. Benign essential hypertension (SNOMED CT 953 8927) 11. Chronic post-traumatic stress disorder (SNOM ED CT 176995887) 12. Bursitis 13. Alcoholic hepatitis (SNOMED CT 507144828) 14. Pain in joint involving shoulder region 15. Nevus, non-neoplastic Active Outpatient Medications (including Suppli es): Active Outpatient Medications Status 1) DOCUSATE NA 100MG CAP TAKE ONE CAPSULE BY EVANGELINA TH TWICE ACTIVE DAILY NEEDED TO SOFTEN STOOL 2) GABAPENTIN 300MG CAP TAKE ONE CAPSULE BY MOUT H TWICE ACTIVE DAILY NEEDED FOR ANXIETY 3) LISINOPRIL 30MG TAB TAKE ONE TABLET BY MOUTH ONCE ACTIVE DAILY TO CONTROL BLOOD PRESSURE 4) QUETIAPINE FUMARATE 25MG TAB TAKE THREE TABLE TS BY ACTIVE MOUTH AT BEDTIME -FOR MOOD Active Non-VA Medications Status 1) Non-VA ASCORBIC ACID 500MG TAB 500MG BY MOUTH ONCE ACTIVE DAILY 2) Non-VA COENZYME Q10 CAP/TAB BY MOUTH ONCE CHANEL LY ACTIVE 3) Non-VA TURMERIC CAP/TAB BY MOUTH ONCE DAILY A CTIVE 4) Non-VA VITAMIN B COMPLEX CAP 1 CAPSULE BY EVANGELINA TH ONCE ACTIVE DAILY 8 Total Medications PAST PSYCH MED HX: h/o [...] denied suicidal and violent ideation, but the [facility] information and number were reviewed w patient as a precaution. The patient also understands to call 911 or to go to ER in the ev ent of an emergency. Again, we had another carefu l discussion, [...] referral for PTSD treatment encourage psychotherapy at [facility] ; the patient reports he has not attended [facility] recently, patient does not feel he needs therapy at this time continue seroquel 75 mg qhs -- pt [...] for AUD; again, previousl y declined antabuse; the patient is now interested in considering naltrexone for AUD --Will review further with patient, patient wants to think about it and I will call him I again strongly advised pt against overuse of b enadryl or other otc meds, I educated him again re potential health risks -- pt denies any recent use of benadryl Note that the patient is interested in an assess ment for ADHD, this is complicated based upon the patient's comorbiditi es. We agreed that we would discuss this again at future appointments, but g petersonen the patient's history of mood instability and [...] pressure, weights, lipids, glucose return to clinic 1 months to see me for check in ; (and pt is good re using open access for f/u if needed) Medication Reconciliation: Outpatient: Has the patient been taking medications as docu mented in the EM? YES: The patient has been taking medications as documented in the EMLR. Essential Medication List for Review used to co mplete this medication reconciliation. INCLUDED IN THIS LIST: Alphabetical list of act bhavani outpatient [facility] (local) an d dispensed from another [place] or [facility] facility (remote) as well [facility] ([facility], pending and active), local [...] score for items 1-7: 0 /es/ THEA CLAKR MD STAFF PSYCHIATRIST Signed: 05/21/2022 18:22 05/27/2022 ADDENDUM STATUS: COMPLETED called pt on 05/27. I had reviewed pcp's last note from 05/04/2022. Under her discussion of patient's liver she reports: #mark er US/elastography 03/2021 elevated LFTs + AUD.obesity 1. Mild hepatic steatosis. 2. Median liver stiffness value of 5.94 kPa, sug gesting that in the absence of other known clinical signs, chronic advanced liver disease is effective ruled out. . Also patient's most recent AST was normal and ALT was just slightly elevated at 60, on 05/04/22. There appears to be no no contraindication to starting naltrexone for alcohol use disorder from hepatic standpoint. I reviewed above with patient. The side affect p rofile of naltrexone was reviewed with patient, including risk of liver toxicity. I also reviewed that the patient must inform other physicians about being presc ribed naltrexone because it is an opiate antagonist, and will block the effect of opiates. Patient ve rbalizes good understanding. The pt feels benefits outweigh risks. The patient would like to st art naltrexone 50 mg daily for alcohol use disorder, will mail this to the tre lorenzo.I reviewed the medication instructions/plan, side effect profile, and treatment expectations with the patient. He discus sed this with me and demonstrated good understanding. Note that the patient denies any opiate use, he understands that if he does have opiates in his system that naltr exone will induce withdrawal. Asked the patient to call me if any problems/side effects. The patient will see me 06/18 and will come for repeat LFTs on the naltrexone during the week before that. The patient indicated he had been on n[facility]xone outside the [facility] in the past and did well with it in terms of tolerating it. Note that the patient's recent UDS was negative /es/ THEA CLARK MD STAFF PSYCHIATRIST Signed: 05/28/2022 14:05
[2022-06-12 20:11] LABS: MANUAL DIFF FLAG NO
--- NOTE | 2022-06-12 20:14 | MHC.EDTECH ---
patient blood draw ,covid swab collected and sent to lab,patient ekg done and was read by provider .
[2022-06-12 20:15] LABS: Basophils Percent Auto 0.2 % (0-2); Eosinophils Percent Auto 0.6 % (0-4); Hematocrit 35.4 % (42.0-52.0); Hemoglobin 12.7 g/dl (14.0-18.0); Imm Gran Abs Auto 0.01 X10*3/uL (0.00-0.03); Imm Gran Pct Auto 0.2 % (0.0-0.4); Lymphocytes Absolute Auto 1.8 X10*3/uL (1.2-4.9); Lymphocytes Percent Auto 36.3 % (20-40); Mean Corpuscular HGB Conc 35.9 g/dl (31.0-36.0); Mean Corpuscular Hemoglobin 30.1 pg (27.0-33.0); Mean Corpuscular Volume 83.9 fL (80.0-98.0); Mean Platelet Volume 9.7 fL (9.4-12.4); Monocytes Absolute Auto 0.5 X10*3/uL (0.1-1.2); Neutrophils Absolute Auto 2.7 x10*3/uL (2.0-8.3); Neutrophils Percent Auto 53.7 % (45-73); Platelet Count 181 X10*3/uL (160-400); Red Blood Count 4.22 X10*6/uL (4.60-5.80)
[2022-06-12 20:20] LABS: Prothrombin Time 11.7 SEC (10.0-13.1)
[2022-06-12 20:27] LABS: COVID-19 Test Negative (Negative); IDNOW Serial# 55D5AD1C
[2022-06-12 20:30] LABS: Alanine Aminotransferase 45 U/L (0-40); Albumin Level 4.3 g/dL (3.5-5.0); Alkaline Phosphatase 70 U/L (39-117); Anion Gap 14 (12-20); Aspartate Amino Transferase 32 U/L (5-37); Bilirubin Direct 0.2 mg/dL (0.0-0.5); Bilirubin Total 0.7 mg/dL (0.0-1.0); Blood Urea Nitrogen 18 mg/dL (9-16); Calcium 8.8 mg/dL (8.4-10.2); Carbon Dioxide 22 mmol/L (22-29); Chloride 108 mmol/L (96-108); Creatinine Clr Calc Pharmacy 98.7; Estimated Glomerular Filt Rate > 60; Glucose Random 143 mg/dL (60-115); Magnesium 1.8 mg/dL (1.6-2.6); Potassium 3.9 mmol/L (3.3-5.1); Sodium 140 mmol/L (135-145); Total Protein 6.6 g/dL (6.5-8.0)
[2022-06-12 20:36] LABS: Troponin-I High Sensitivity 6.3 ng/L (<3.5-35.0)
== END 2022-06-12 22:29 | disposition home or self-care (01) ==
PROVIDERS: Nurse Practitioner Family; Emergency Provider Internal Medicine; PCP Internal Medicine
DX: F41.9 Anxiety disorder, unspecified (principal); I49.3 Ventricular premature depolarization; Z20.822 Contact with and (suspected) exposure to COVID-19; I10 Essential (primary) hypertension; F10.20 Alcohol dependence, uncomplicated; F19.10 Other psychoactive substance abuse, uncomplicated; Z79.899 Other long term (current) drug therapy
CPT/HCPCS: 71046; 80048; 80076; 83735; 84484; 85025; 85610; 87635; 93005; 99283